=== PATIENT | male | born 1945 | race Caucasian/White ===

== ENCOUNTER 2017-05-02 21:39 | Emergency (ER) | payer MEDICARE, BC ==
[~2017-05-02] VITALS: Ht 170.2 cm; Wt 72.5 kg
[~2017-05-02 21:39] MED LIST: CYCL-36 PO; IBUP-232 PO; Z.0.UNKNOWN
[2017-05-02 22:19] VITALS: BP 171/81; PULSE 90; RESP 16; TEMP 97.4; O2SAT 95
== END 2017-05-02 23:10 | disposition left against medical advice (07) ==
LOC: NED 21:39
DX: K92.9 Disease of digestive system, unspecified (principal)
CPT/HCPCS: 99281

== ENCOUNTER 2017-05-07 11:37 | Emergency (ER) | payer MEDICARE, BC ==
[~2017-05-07] VITALS: Ht 170.2 cm; Wt 72.7 kg
[2017-05-07 11:39] VITALS: BP 162/89; PULSE 103; RESP 20; TEMP 97.7; O2SAT 91
--- NOTE | 2017-05-07 11:45 | PD ---
Physical Exam Time Seen by Provider: 11:41 Narrative 72 y/o male here for evaluation after a Fall 5-6 days ago, his wheelchair tipped over while walking his dog. here with L shoulder pain. Vital signs reviewed. Seen at triage desk. Awaiting bed placement. Data Data Last Documented VS Vital Signs Date Time Temp Pulse Resp B/P Pulse Ox O2 Delivery O2 Flow Rate FiO2 05/07/17 11:39 97.7 103 20 162/89 91 Room Air [facility] Medical Record Reviewed: Yes Supervised Visit with SAMEERA: Raul Kan May 07, 2017 11:45
--- NOTE | 2017-05-07 13:07 | RADRPT ---
EXAM DATE/TIME: 05/07/2017 12:46 [facility] COMPARISON: No previous studies available for comparison. INDICATIONS : Fall. Left shoulder pain. MEDICAL HISTORY : None. SURGICAL HISTORY : None. ENCOUNTER: Initial ACUITY: 1 day PAIN SCORE: 8/10 LOCATION: Left shoulder FINDINGS: The examination demonstrates a comminuted, 100% displaced and foreshortened fracture of the mid left clavicle. The examination also demonstrates fractures of the second, third and fourth left ribs. There are degenerative changes in the glenohumeral joint. CONCLUSION: 1. Comminuted fracture of the mid clavicle. 2. Fracture of the second, third and fourth left ribs.. Jose Alegria MD on May 07, 2017 at 13:04 Board Certified Radiologist. This report was verified electronically.
--- NOTE | 2017-05-07 13:31 | RADRPT ---
EXAM DATE/TIME: 05/07/2017 13:06 [facility] COMPARISON: SHOULDER LEFT COMPLETE (>2VWS), May 07, 2017, 12:46. INDICATIONS : Left clavicle fracture. MEDICAL HISTORY : None. SURGICAL HISTORY : None. ENCOUNTER: Initial ACUITY: 1 day PAIN SCORE: 8/10 LOCATION: Left shoulder, clavicle FINDINGS: The examination demonstrates a comminuted fracture involving the mid aspect of the left clavicle. The re is also fracture of the fourth and fifth left ribs which are only partially visualized. CONCLUSION: 1. Comminuted, mildly displaced left clavicular fracture. 2. Mildly displaced fractures of the fourth and fifth left ribs. Jose Alegria MD on May 07, 2017 at 13:28 Board Certified Radiologist. This report was verified electronically.
--- NOTE | 2017-05-07 13:34 | RADRPT ---
EXAM DATE/TIME: 05/07/2017 13:06 [facility] COMPARISON: No previous studies available for comparison. INDICATIONS : Fall. Left shoulder pain. MEDICAL HISTORY : None. SURGICAL HISTORY : None. ENCOUNTER: Initial ACUITY: 1 day PAIN SCORE: 8/10 LOCATION: Left chest FINDINGS: Multiple displaced fractures are seen on the left and is a complete overriding fracture of left clavi chung. No definite pneumothorax is seen for technique. Tiny left pleural effusion is present with sligh t left lung base consolidation. Scapular fracture is difficult to exclude. CONCLUSION: 1. Multiple displaced rib fractures on the left, clavicular fracture and scapular fracture is difficu lt to exclude. 2. Left lung base consolidation and small left pleural effusion. Ryne Woodard MD on May 07, 2017 at 13:31 Board Certified Radiologist. This report was verified electronically.
[2017-05-07] MEDS ORDERED: NORC5TAB PO (14:13)
--- NOTE | 2017-05-07 14:13 | PD ---
HPI Chief Complaint: Injury Time Seen by Provider: 13:45 Travel History International Travel<30 days: No Contact w/Intl Traveler<30days: No Traveled to known affect area: No History of Present Illness HPI 72-year-old male complains of left shoulder pain, left upper back pain, left- sided chest wall pain. Patient states that he fell several days ago. Patient denies any head injury. Patient denies any headache or neck pain. Patient denies any shortness of breath. Patient denies abdominal pain. Patient denies any focal weakness or numbness of the extremity. Patient was seen by personal physician today and referred to ED for evaluation. PFSH Past Medical History Arthritis: No Asthma: No Autoimmune Disease: No Blood Disorders: No Heart Rhythm Problems: No Cardiovascular Problems: Yes (hx of heart disease) High Cholesterol: Yes Chest Pain: No Congestive Heart Failure: Yes COPD: No Cerebrovascular Accident: No Diminished Hearing: No Endocrine: Yes (hx of pancreatitis) GERD: Yes Glaucoma: No Genitourinary: Yes (REPORTS HX OF CATHETER EROSION W/HOSPITALIZATION 1963) Headaches: Yes Hepatitis: No Hiatal Hernia: No Hypertension: Yes Immune Disorder: No Kidney Stones: No Musculoskeletal: No Neurologic: Yes Respiratory: No Myocardial Infarction: No Renal Failure: No Seizures: No Sickle Cell Disease: No Sleep Apnea: No Ulcer: No Past Surgical History Abdominal Surgery: Yes Ear Surgery: No Endocrine Surgery: No Eye Surgery: No Gynecologic Surgery: No Oral Surgery: Yes (TEETH EXTRACTION) Thoracic Surgery: No Other Surgery: Yes Social History Alcohol Use: No (denies) Tobacco Use: No Substance Use: Yes (states he smokes pot when he can afford it) Allergies-Medications (Allergen,Severity, Reaction): Coded Allergies: No Known Allergies (Verified , NKA, 05/07/17) Reported Meds & Prescriptions Reported Meds & Active Scripts Active Terry (Hydrocodone-Acetaminophen) 5-325 mg Tab 1 Tab PO Q6H PRN Motrin (Ibuprofen) 600 Mg Tab 600 Mg PO TID Flexeril (Cyclobenzaprine HCl) 10 Mg Tab 10 Mg PO TID Reported Unknown Meds (Miscellaneous Medication) Misc DAILY B/P PILL Review of Systems General / Constitutional: No: Fever Eyes: No: Visual changes HENT: No: Headaches Cardiovascular: No: Chest Pain or Discomfort Respiratory: No: Shortness of Breath Gastrointestinal: No: Abdominal Pain Genitourinary: No: Dysuria Musculoskeletal: Positive: Pain Skin: No Rash Neurologic: No: Weakness Psychiatric: No: Depression Endocrine: No: Polydipsia Hematologic/Lymphatic: No: Easy Bruising Physical Exam Narrative GENERAL: Well-nourished, well-developed patient. SKIN: Focused skin assessment warm/dry. HEAD: Normocephalic. EYES: No scleral icterus. No injection or drainage. NECK: Supple, trachea midline. No JVD or lymphadenopathy. CARDIOVASCULAR: Regular rate and rhythm without murmurs, gallops, or rubs. RESPIRATORY: Breath sounds equal bilaterally. No accessory muscle use. GASTROINTESTINAL: Abdomen soft, non-tender, nondistended. MUSCULOSKELETAL: Patient has ecchymosis and tenderness on palpation left clavicle area left shoulder area left upper back and left chest wall area. No crepitus no deformity noted. Breasts are equal bilaterally. BACK: Nontender without obvious deformity. No CVA tenderness. Neurologic exam normal. Data Data Last Documented VS Vital Signs Date Time Temp Pulse Resp B/P Pulse Ox O2 Delivery O2 Flow Rate FiO2 05/07/17 13:40 18 97 Room Air 05/07/17 11:39 97.7 103 162/89 Orders Chest, Single Ap (05/07/17 ) Shoulder, Complete (>2vws) (05/07/17 ) Clavicle (05/07/17 ) Splint Or Brace Apply/Monitor (05/07/17 14:11) Sling Cradle Arm (05/07/17 ) Sling Cradle Arm (05/07/17 ) MDM Medical Decision Making Medical Screen Exam Complete: Yes Emergency Medical Condition: Yes Interpretation(s) Last Impressions Shoulder X-Ray 05/07/17 0000 Signed Impressions: Service Date/Time: April 12:46 - CONCLUSION: 1. Comminuted fracture of the mid clavicle. 2. Fracture of the second, third and fourth left ribs.. Jose Alegria MD Clavicle X-Ray 05/07/17 0000 Signed Impressions: Service Date/Time: April 13:06 - CONCLUSION: 1. Comminuted , mildly displaced left clavicular fracture. 2. Mildly displaced fractures of the fourth and fifth left ribs. Jose Alegria MD Chest X-Ray 05/07/17 0000 Signed Impressions: Service Date/Time: , May 07, 2017 13:06 - CONCLUSION: 1. Multiple displaced rib fractures on the left, clavicular fracture and scapular fracture is difficult to exclude. 2. Left lung base consolidation and small left pleural effusion. Ryne Woodard MD Differential Diagnosis Differential diagnosis including contusion, fracture, dislocation, rib fracture , hemopneumothorax. Narrative Course Patient was advised of left clavicle fracture, left ribs fracture and left scapula fracture. Patient refused CT of the chest. Patient wants to go home and follow-up with his physician. Diagnosis Primary Impression: Fracture of clavicle, left, closed Qualified Code: S42.022A - Closed displaced fracture of shaft of left clavicle , initial encounter Additional Impressions: Multiple rib fractures Qualified Code: S22.42XA - Closed fracture of multiple ribs of left side, initial encounter Fracture scapula-closed Qualified Code: S42.102A - Closed fracture of left scapula, unspecified part of scapula, initial encounter Patient Instructions: General Instructions Additional Instructions: Take medications as directed. Sling as directed. Follow-up with orthopedist and personal physician. Med/Other Pt SpecificInfo: Prescription(s) given Scripts Hydrocodone-Acetaminophen (Terry)5-325 mg Tab1 Tab PO Q6H PRN (PAIN) #30 TAB Prov:Juwan Bueno MD 05/07/17 Disposition: 01 DISCHARGE HOME Condition: Stable Juwan Bueno MD May 07, 2017 14:13
== END 2017-05-07 15:04 | disposition home or self-care (01) ==
LOC: NEPD 11:37
DX: S42.022A Displaced fracture of shaft of left clavicle, initial encounter for closed fracture (principal); S22.42XA Multiple fractures of ribs, left side, initial encounter for closed fracture; S42.102A Fracture of unspecified part of scapula, left shoulder, initial encounter for closed fracture; K21.9 Gastro-esophageal reflux disease without esophagitis; K85.90 Acute pancreatitis without necrosis or infection, unspecified; E78.00 Pure hypercholesterolemia, unspecified; I50.9 Heart failure, unspecified; W19.XXXA Unspecified fall, initial encounter; Z79.899 Other long term (current) drug therapy
CPT/HCPCS: 71010; 73000; 73030; 99284

== ENCOUNTER 2018-03-15 12:34 | Emergency (ER) | payer MEDICARE, BC ==
[~2018-03-15 12:34] MED LIST changes: +NORC5TAB PO
[2018-03-15 12:49] VITALS: RESP 18; O2SAT 96
[2018-03-15 12:50] VITALS: BP 135/67; PULSE 84; RESP 16; TEMP 98.1; O2SAT 96
--- NOTE | 2018-03-15 13:06 | PD ---
HPI Chief Complaint: General Weakness Time Seen by Provider: 12:40 Travel History International Travel<30 days: No Contact w/Intl Traveler<30days: No Traveled to known affect area: No History of Present Illness HPI 73-year-old male who presents to the ED for evaluation of failure to thrive. Per history obtained from the patient and from the ambulance apparently patient contacted ambulance to his life alert device. Patient apparently contacted because he felt he was given a diet because he could not get up to eat. When ambulance showed up patient only complained of wanting to have food. The ambulance provider gave patient his apple sauce and patient started to mention to them so he does not feel safe being by himself. Apparently he has 2 people to come check on him but apparently he lost all the doors. He appears to have some confusion appears to be somewhat demented. Questionable whether this is new or old as patient himself is not a good historian although he does appear to answer some questions appropriately. When asked if he has any medical issues he states no one when asked if he takes any medications he states that he did but he no longer takes them for about 2-3 weeks secondary to "do not make him feel well ". He was found by ambulance to have an elevated blood sugar. She states that for the most part he feels like he cannot take care of himself and he does not feel safe at home and he did himself requested possible placement. Patient was brought here by ambulance for evaluation of this is the did felt the patient was not safe to stay at home. Per patient he has no family in town. He has not seen his doctor for this. He denies any complaints or falls. PFSH Past Medical History Arthritis: No Asthma: No Autoimmune Disease: No Blood Disorders: No Heart Rhythm Problems: No Cardiovascular Problems: Yes (hx of heart disease) High Cholesterol: Yes Chest Pain: No Congestive Heart Failure: Yes COPD: No Cerebrovascular Accident: No Diminished Hearing: No Endocrine: Yes (hx of pancreatitis) GERD: Yes Glaucoma: No Genitourinary: Yes (REPORTS HX OF CATHETER EROSION W/HOSPITALIZATION 1963) Headaches: Yes Hepatitis: No Hiatal Hernia: No Hypertension: Yes Immune Disorder: No Kidney Stones: No Musculoskeletal: No Neurologic: Yes Respiratory: No Myocardial Infarction: No Renal Failure: No Seizures: No Sickle Cell Disease: No Sleep Apnea: No Ulcer: No Past Surgical History Abdominal Surgery: Yes Ear Surgery: No Endocrine Surgery: No Eye Surgery: No Gynecologic Surgery: No Oral Surgery: Yes (TEETH EXTRACTION) Thoracic Surgery: No Other Surgery: Yes Social History Alcohol Use: No (denies) Tobacco Use: No Substance Use: Yes (states he smokes pot when he can afford it) Allergies-Medications (Allergen,Severity, Reaction): Coded Allergies: No Known Allergies (Verified Adverse Reaction, Unknown, NKA, 03/15/18) Reported Meds & Prescriptions Reported Meds & Active Scripts Active No Active Prescriptions or Reported Medications Review of Systems ROS Limitations: Poor Historian Except as stated in HPI: all other systems reviewed are Neg Physical Exam Exam Limitations: Poor Historian Narrative GENERAL: SKIN: Warm and dry. HEAD: Atraumatic. Normocephalic. EYES: Pupils equal and round. No scleral icterus. No injection or drainage. ENT: No nasal bleeding or discharge. Mucous membranes pink and moist. Tongue is midline. No uvula deviation. NECK: Trachea midline. No JVD. CARDIOVASCULAR: Regular rate and rhythm. No murmurs, S3, S4. RESPIRATORY: No accessory muscle use. Clear to auscultation. Breath sounds equal bilaterally. GASTROINTESTINAL: Abdomen soft, non-tender, nondistended. Hepatic and splenic margins not palpable. MUSCULOSKELETAL: Extremities without clubbing, cyanosis, or edema. No obvious deformities. Full range of motion of the upper and lower extremities bilaterally. 2+ pulses bilaterally. NEUROLOGICAL: Awake and alert and oriented to person and place. No obvious cranial nerve deficits. Motor grossly within normal limits. Five out of 5 muscle strength in the arms and legs. Normal speech. PSYCHIATRIC: Appropriate mood and affect; insight and judgment mild Data Data Last Documented VS Vital Signs Date Time Temp Pulse Resp B/P (MAP) Pulse Ox O2 Delivery O2 Flow Rate FiO2 03/15/18 12:50 98.1 84 16 135/67 (89) 96 Room Air Orders Orders Complete Blood Count With Diff (03/15/18 12:46) Comprehensive Metabolic Panel (03/15/18 12:46) Ckmb (Isoenzyme) Profile (03/15/18 12:46) Prothrombin Time / Inr (Pt) (03/15/18 12:46) Act Partial Throm Time (Ptt) (03/15/18 12:46) Urinalysis - C+S If Indicated (03/15/18 12:46) Magnesium (Mg) (03/15/18 12:46) Thyroid Stimulating Hormone (03/15/18 12:46) Iv Access Insert/Monitor (03/15/18 12:46) Ecg Monitoring (03/15/18 12:46) Oximetry (03/15/18 12:46) Ed Discharge Order (03/15/18 14:20) Labs Laboratory Tests Test 03/15/18 12:51 White Blood Count 13.0 TH/MM3 Red Blood Count 5.27 MIL/MM3 Hemoglobin 15.4 GM/DL Hematocrit 47.3 % Mean Corpuscular Volume 89.7 FL Mean Corpuscular Hemoglobin 29.3 PG Mean Corpuscular Hemoglobin Concent 32.7 % Red Cell Distribution Width 15.2 % Platelet Count 272 TH/MM3 Mean Platelet Volume 8.6 FL Neutrophils (%) (Auto) 68.2 % Lymphocytes (%) (Auto) 18.1 % Monocytes (%) (Auto) 11.3 % Eosinophils (%) (Auto) 1.7 % Basophils (%) (Auto) 0.7 % Neutrophils # (Auto) 8.9 TH/MM3 Lymphocytes # (Auto) 2.4 TH/MM3 Monocytes # (Auto) 1.5 TH/MM3 Eosinophils # (Auto) 0.2 TH/MM3 Basophils # (Auto) 0.1 TH/MM3 CBC Comment DIFF FINAL Differential Comment Prothrombin Time 11.5 SEC Prothromb Time International Ratio 1.1 RATIO Activated Partial Thromboplast Time 25.9 SEC Blood Urea Nitrogen 21 MG/DL Creatinine 1.04 MG/DL Random Glucose 221 MG/DL Total Protein 7.1 GM/DL Albumin 3.2 GM/DL Calcium Level 8.5 MG/DL Magnesium Level 2.2 MG/DL Alkaline Phosphatase 86 U/L Aspartate Amino Transf (AST/SGOT) 25 U/L Alanine Aminotransferase (ALT/SGPT) 11 U/L Total Bilirubin 0.7 MG/DL Sodium Level 141 MEQ/L Potassium Level 4.0 MEQ/L Chloride Level 103 MEQ/L Carbon Dioxide Level 28.5 MEQ/L Anion Gap 10 MEQ/L Estimat Glomerular Filtration Rate 70 ML/MIN Total Creatine Kinase 89 U/L Thyroid Stimulating Hormone 3rd Gen 0.431 uIU/ML MDM Medical Decision Making Medical Screen Exam Complete: Yes Emergency Medical Condition: Yes Medical Record Reviewed: Yes Interpretation(s) CBC & BMP Diagram 03/15/18 12:51 Total Protein 7.1, Albumin 3.2 L, Calcium Level 8.5, Magnesium Level 2.2, Alkaline Phosphatase 86, Aspartate Amino Transf (AST/SGOT) 25, Alanine Aminotransferase (ALT/SGPT) 11 L, Total Bilirubin 0.7 Differential Diagnosis Dementia versus altered mental status versus failure to thrive versus inability to take care of self versus UTI versus electrolyte imbalance versus diabetes Narrative Course 73-year-old male that presents to the ED for evaluation of failure to thrive. Patient was properly examined and was found to have signs and symptoms consistent appears to be dementia admitted with sickle cell. Labs were ordered. Case management was made aware of possible need for placement for the patient. Labs showed no sign of acute disease at this time. Case discussed with case management who was able to contact family and patient and they will be given information for [facility] outpatient. Patient agrees with this as well as family. Case management working to set up transportation pending waiting to see if home nurse at home when patient is discharged. Case discussed with my attending Dr pickens who agrees with plan. Diagnosis Primary Impression: Dementia Qualified Codes: G30.1 - Alzheimer's disease with late onset; F02.80 - Dementia in other diseases classified elsewhere without behavioral disturbance Patient Instructions: General Instructions Additional Instructions: F/u with PCP for placement. See ED if worsening symptoms. Med/Other Pt SpecificInfo: No Change to Meds Scripts No Active Prescriptions or Reported Meds Disposition: 01 DISCHARGE HOME Condition: Stable Lawrence Armijo March 15, 2018 13:06
[2018-03-15 13:11] LABS: AUTOMATED NEUTROPHIL # 8.9 TH/MM3 (1.8-7.7); BASOPHIL # 0.1 TH/MM3 (0-0.2); BASOPHIL % 0.7 % (0.0-2.0); EOSINOPHIL # 0.2 TH/MM3 (0-0.4); EOSINOPHIL % 1.7 % (0.0-4.0); HEMATOCRIT 47.3 % (39.0-51.0); HEMOGLOBIN 15.4 GM/DL (13.0-17.0); LYMPH % 18.1 % (9.0-44.0); LYMPHOCYTE # 2.4 TH/MM3 (1.0-4.8); MEAN CELL VOLUME 89.7 FL (80.0-100.0); MEAN CORPUSCULAR HEMOGLOBIN 29.3 PG (27.0-34.0); MEAN CORPUSCULAR HGB CONC 32.7 % (32.0-36.0); MEAN PLATELET VOLUME 8.6 FL (7.0-11.0); MONO % 11.3 % (0.0-8.0); MONOCYTE # 1.5 TH/MM3 (0-0.9); NEUT % 68.2 % (16.0-70.0); PLATELET COUNT 272 TH/MM3 (150-450); RED BLOOD COUNT 5.27 MIL/MM3 (4.50-5.90); RED CELL DISTRIBUTION WIDTH 15.2 % (11.6-17.2)
[2018-03-15 13:19] LABS: INTERNATIONAL NORMALIZED RATIO 1.1 RATIO; PROTHROMBIN TIME - PATIENT 11.5 SEC (9.8-11.6)
[2018-03-15 13:38] LABS: ALBUMIN 3.2 GM/DL (3.4-5.0); ALKALINE PHOSPHATASE 86 U/L (45-117); ALT (GPT) 11 U/L (12-78); AST (GOT) 25 U/L (15-37); BICARBONATE 28.5 MEQ/L (21.0-32.0); BLOOD UREA NITROGEN 21 MG/DL (7-18); CALCIUM 8.5 MG/DL (8.5-10.1); CHLORIDE 103 MEQ/L (98-107); CREATININE 1.04 MG/DL (0.60-1.30); GLOMERULAR FILTRATION RATE 70 ML/MIN (>89); GLUCOSE,RANDOM 221 MG/DL (74-106); MAGNESIUM 2.2 MG/DL (1.5-2.5); SODIUM (NA) 141 MEQ/L (136-145); TOTAL BILIRUBIN ADULT 0.7 MG/DL (0.2-1.0); TOTAL PROTEIN 7.1 GM/DL (6.4-8.2)
[2018-03-15 15:48] LABS: BLOOD, URINE NEG (NEG); GLUCOSE,URINE NEG (NEG); KETONE, URINE TRACE mg/dL (NEG); NITRITE,URINE NEG (NEG); PH, URINE 5.5 (5.0-8.5); URINE COLOR YELLOW (YELLW/STRAW); URINE LEUKOCYTE ESTERASE NEG (NEG)
[2018-03-15 15:49] LABS: BILIRUBIN, URINE NEG (NEG)
[2018-03-15 15:52] LABS: AMORPHOUS SEDIMENT, URINE RARE; HYALINE CAST, URINE 16 /lpf (RARE); MUCUS URINE MANY /lpf (OCC); SQUAMOUS EPITHELIAL CELL URINE 1 /hpf (0-5)
== END 2018-03-15 16:28 | disposition home or self-care (01) ==
LOC: NEPE 12:34
DX: G30.1 Alzheimer's disease with late onset (principal); F02.80 Dementia in other diseases classified elsewhere, unspecified severity, without behavioral disturbance, psychotic disturbance, mood disturbance, and anxiety; I11.0 Hypertensive heart disease with heart failure; I50.9 Heart failure, unspecified
CPT/HCPCS: 80053; 81001; 82550; 83735; 84443; 85025; 85610; 85730; 99283

== ENCOUNTER 2018-12-07 06:33 | Inpatient (IN) ==
--- NOTE | 2018-12-07 06:48 | ED ---
HPI General Chief Complaint: Stroke Alert Stated Complaint: Medical Time Seen by Provider: 12/07/18 06:37 Source: EMS Mode of arrival: EMS Limitations: language barrier and altered mental status History of Present Illness HPI Narrative: The patient is a 73-year-old male. He is nonverbal in the ED. The history is obtained by EMS. The patient was put to bed at about 9 PM however was evidently confirmed to be normal by home health care until 1:30 AM when home health care left the household. This is confirmed by the presence of note left on the kitchen table. The patient has a medical alert device which was activated early this morning at approximately 6:15 AM. The patient was found by EMS at home with a gaze deviation to the left and aphasia. In the ED the patient is nonverbal. Stroke alert activated upon arrival. Reviewed the medical record shows medication reconciliation list which includes losartan, carbidopa, simvastatin, ropinirole and Lasix. EMS notes the patient uses medical marijuana as well. Prior medical records show that the patient was awake alert without obvious cranial nerve deficit or motor deficit at the end of August of this year. There has been no interval ED documentation/visit. Related Data Home Medications Medication Instructions Recorded Confirmed carbidopa-levodopa [Sinemet] 1 tab PO QID 09/21/18 09/21/18 furosemide [Lasix] 20 mg PO DAILY 09/21/18 09/21/18 losartan-hydrochlorothiazide 1 tab PO DAILY 09/21/18 09/21/18 melatonin 10 mg PO HS PRN 09/21/18 09/21/18 ropinirole 1 mg PO TID 09/21/18 09/21/18 simvastatin [Zocor] 20 mg PO QPM 09/21/18 09/21/18 Allergies Allergy/AdvReac Type Severity Reaction Status Date / Time No Known Allergies Allergy Verified 09/21/18 15:52 Review of Systems ROS Unobtainable ROS Unobtainable: unobtainable due to mental condition and unobtainable due to mental status PMFSH Social History Social History Substance History: No History of Abuse Second Hand Smoke Exposure: Yes Smoking Status: Cognitive impairment Tobacco Type: Cigarettes How Often Do You Have a Drink Containing Alcohol: Unable to Obtain Recent Travel in [facility] within the Last 8 Weeks: No Recent Out of Country Travel within the Last 8 Weeks: No Exam Narrative Exam Narrative: GENERAL: 73-year-old male moderate distress, nonverbal, well- nourished well-developed SKIN: Focused skin assessment warm/dry. Ecchymosis about the right ribs linear about 10 cm long by 2 cm wide. HEAD: Atraumatic. Normocephalic. EYES: Pupils equal and round. No scleral icterus. No injection or drainage. ENT: No nasal bleeding or discharge. Mucous membranes pink and moist. NECK: Trachea midline. No JVD. CARDIOVASCULAR: Rate approximately 110. Regular. RESPIRATORY: No accessory muscle use. Clear to auscultation. Breath sounds equal bilaterally. GASTROINTESTINAL: Surgical incision midline abdomen. Grimacing with palpation of the abdomen. MUSCULOSKELETAL: No obvious deformities. No clubbing. No cyanosis. No edema. NEUROLOGICAL: Awake and alert. gaze deviation to the left. The patient does not speak. 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 Ankle flexion 5/5 and equal bilaterally. Further evaluation limited by patient's inability to participate with the physical exam. PSYCHIATRIC: Appropriate mood and affect; insight and judgment normal. Procedures Hemaprompt Stool Procedural Steps Taken: specimen placed in appropriate test area, developer placed on specimen and control areas and controls appropriately positive and negative Hemaprompt Stool Result: positive Intubation Time Out Performed: Yes Sedative: etomidate Mg Given: 20 Paralytic: succinylcholine Mg Given: 100 Laryngoscope: Mike ET Tube Size: 8 ET Tube Uncuffed: Yes Tube Secured Depth (cm): 24 Tube Secured Location: lips Tube Placement Confirmation: visualized tube passing through cords, equal breath sounds bilaterally, no breath sounds over epigastrium and confirmation by capnometry Patient Tolerated Procedure: well and no complications Course Initial Documented Vital Signs Pulse Rate 111 H 12/07/18 06:35 Respiratory Rate 18 12/07/18 06:35 Blood Pressure 192/102 H 12/07/18 06:35 Pulse Oximetry 98 12/07/18 06:35 Last Documented Vital Signs Temperature 98.0 F 12/07/18 06:36 Pulse Rate 120 H 12/07/18 07:29 Respiratory Rate 27 H 12/07/18 07:29 Blood Pressure 128/74 12/07/18 07:44 Pulse Oximetry 100 12/07/18 07:45 Critical Care Time Critical Care Time: Yes Total Critical Care Time: 35 Attestation: Aggregate critical care time was 35 minutes. Time to perform other separately billable procedures was not included in the critical care time. My time did not include minutes spent treating any other patients simultaneously or on activities that did not directly contribute to the patient's treatment. The services I provided to this patient were to treat and/or prevent clinically significant deterioration that could result in: Permanent disability, cardiopulmonary arrest I provided critical care services requiring my management, as noted below: Chart data review, documentation time, medication orders and management, vital sign assessments/reviewing monitor data, ordering and reviewing lab tests, ordering and interpreting/reviewing x-rays and diagnostic studies, care of the patient and discussion of the patient with the admitting physicians. Sign Out Sign Out Data: Patient Sign Out occurred on 12/07/18 at 07:45. Patient's care was discussed, and care was transferred from Jose William MD to Cherelle Schofield MD. Sign Out Comment: Plan for admission to [facility] per our discussion. Dr Turner to d/ w IR. Last updated by Jose William MD at 12/07/18 07:30 Post-Handoff Eval: Patient is a 73 year old male who comes in after being found on the ground next to his bed. Patient originally seen by Dr. William and stroke alert called. I saw the patient and he was not alert or following any commands. He had sonorous respirations. Decision made to intubate for airway protection. Patient also noted to have coffee ground emesis. Stool is positive for occult blood. CT shows a dense left MCA stroke. CXR confirms tube, but also is suspicious for LLL infiltrate. WBC count is 21.6. Given Vancomycin and Zosyn. Started on Protonix. Given Propofol for sedation. IR took the patient for clot retrieval. Admitted to [facility], NIH Stroke Scale NIH Stroke Scale Level of Consciousness: 0-Alert Orientation Questions: 2-Neither task correct Responds to Commands: 2-Neither task correct Gaze Eye Movement: 2-Complete gaze palsy Facial Movement: 0-Normal Motor Functions Arm LEFT: 0-No drift Motor Functions Arm RIGHT: 0-No drift Motor Functions Leg LEFT: 0-No drift Motor Functions Leg RIGHT: 0-No drift Sensory Loss: 0-No sensory loss Best Language: 3-Mute or global aphasia Articulation: 2-Severe dysarthria Total: 11 Medical Decision Making MDM Narrative Medical decision making narrative: CT the head is normal however his CTA shows left MCA thrombosis with extension into the internal carotid artery to the level of the bifurcation. This was relayed to me by Dr Woodard of radiology. I relayed the report to Dr Turner at approximately 715AM. The NIH stroke score is 11 by my assessment however a fair portion of it was unobtainable due to patient's inability to participate with the exam secondary to altered mental status. The RN obtained an NIH stroke scale of 18. At about 710 the patient return to the ED having deteriorated somewhat with sonorous respirations and even less responsive to verbal and tactile stimulus. The oncoming provider Dr. Schofield elected to intubate the patient. Propofol started. Medical Screen Exam Complete: Yes Emergency Medical Condition: Yes Differential Diagnosis Differential Diagnosis: stroke vs ICH vs sepsis vs GI bleed Medical Records Medical records reviewed: Yes I reviewed the patient's medical records. Lab Data Lab results reviewed: Yes I reviewed the patient's lab results. Result diagrams: 12/07/18 06:40 Lab Results 12/07/18 12/07/18 12/07/18 Range/Units 06:40 06:40 06:40 WBC 21.6 H (4.0-11.0) th/mm3 RBC 5.31 (4.50-5.90) mil/mm3 Hgb 16.0 (13.0-17.0) gm/dL POC Hgb (Calc) 17.0 (13.0-17.0) g/dL Hct 48.1 (39.0-51.0) % POC Hct 50.0 (39-51.0) % MCV 90.6 (80.0-100.0) fL MCH 30.1 (27.0-34.0) pg MCHC 33.2 (32.0-36.0) % RDW 14.7 (11.6-17.2) % Plt Count 247 (150-450) th/mm3 MPV 9.1 (7.0-11.0) fL Neut % (Auto) 87.3 H (16.0-70.0) % Lymph % (Auto) 4.9 L (9.0-44.0) % [place] % (Auto) 7.5 (0.0-8.0) % Eos % (Auto) 0.0 (0.0-4.0) % Baso % (Auto) 0.3 (0.0-2.0) % Neut # (Auto) 18.8 H (1.8-7.7) th/mm3 Lymph # (Auto) 1.1 (1.0-4.8) th/mm3 [place] # (Auto) 1.6 H (0.0-0.9) th/mm3 Eos # (Auto) 0.0 (0.0-0.4) th/mm3 Baso # (Auto) 0.1 (0.0-0.2) th/mm3 WBC Differential . Differential Comment Auto diff final PT 10.5 (9.8-11.6) sec INR 1.0 Ratio APTT 27.2 (23.4-31.7) sec Fibrinogen 399 H (227-377) mg/dL POC Sodium 139 (137-144) mmol/L POC Potassium 3.7 (3.6-5.0) mmol/L POC Chloride 98 L (102-111) mmol/L POC BUN 23 H (5-21) mg/dL POC Creatinine 0.7 (0.6-1.3) mg/dL POC Glucose 224 H (68-110) mg/dL Total Creatine Kinase 244 (39-308) U/L Troponin I 0.10 H (0.02-0.05) ng/mL Blood Type Blood Type Recheck Antibody Screen 12/07/18 Range/Units 06:40 WBC (4.0-11.0) th/mm3 RBC (4.50-5.90) mil/mm3 Hgb (13.0-17.0) gm/dL POC Hgb (Calc) (13.0-17.0) g/dL Hct (39.0-51.0) % POC Hct (39-51.0) % MCV (80.0-100.0) fL MCH (27.0-34.0) pg MCHC (32.0-36.0) % RDW (11.6-17.2) % Plt Count (150-450) th/mm3 MPV (7.0-11.0) fL Neut % (Auto) (16.0-70.0) % Lymph % (Auto) (9.0-44.0) % [place] % (Auto) (0.0-8.0) % Eos % (Auto) (0.0-4.0) % Baso % (Auto) (0.0-2.0) % Neut # (Auto) (1.8-7.7) th/mm3 Lymph # (Auto) (1.0-4.8) th/mm3 [place] # (Auto) (0.0-0.9) th/mm3 Eos # (Auto) (0.0-0.4) th/mm3 Baso # (Auto) (0.0-0.2) th/mm3 WBC Differential Differential Comment PT (9.8-11.6) sec INR Ratio APTT (23.4-31.7) sec Fibrinogen (227-377) mg/dL POC Sodium (137-144) mmol/L POC Potassium (3.6-5.0) mmol/L POC Chloride (102-111) mmol/L POC BUN (5-21) mg/dL POC Creatinine (0.6-1.3) mg/dL POC Glucose (68-110) mg/dL Total Creatine Kinase (39-308) U/L Troponin I (0.02-0.05) ng/mL Blood Type O Positive Blood Type Recheck Required Antibody Screen Negative Imaging Data Radiologist's impression: Head CT 12/07/18 06:37 CONCLUSION: No acute intracranial findings. Report was called by [Tonkin to Dr. William 0654 hours]. Head CTA 12/07/18 06:37 CONCLUSION: 1. The left ICA is completely clotted from the takeoff in the patient's neck all the way to supraclinoid ICA at the junction of M1 takeoff with diminished flow within left MCA branches. Report was called by [myself to Dr. Hope as well as Dr Burgess at the time of this dictation at 7:15 a.m.]. Neck CTA 12/07/18 06:37 CONCLUSION: 1. Complete occlusion of the left ICA. 2. Atherosclerotic soft plaque with ulceration of right ICA at the takeoff with slight stenosis. Report was called by [myself to Dr. Hope and Dr. Burgess at 17:15 a[address]m]. CT CAD 12/07/18 06:40 CONCLUSION: Physiological brain perfusion parameters with RAPID analysis as above. Findings were discussed with Dr. William at 17:14 a.m. including the results of CT angiography. The decision for consideration of therapy is multi factorial and multi disciplinary relying on subjective and objective clinical data. This data is not construed or intended to be the sole determinant of treatment eligibility. Chest X-Ray 12/07/18 07:06 CONCLUSION: Tubes placed with slight left lung base atelectasis and/or infiltrate. ECG Data EKG Prior to Arrival: No Attestation: I personally reviewed and interpreted this ECG as follows: Interpretation: ECG shows sinus tachycardia Discharge Plan Discharge Disposition Patient Disposition: ED Admit(ED Internal Use Only) Discharge Condition Condition: Critical Discharge Details Diagnosis: Stroke, Leukocytosis, Pneumonia, GI bleed, Respiratory failure Physicians Team ED Provider: Cherelle Schofield Primary Care Provider: UNKNOWN, Other Providers: Daniele Turner Rxs /Orders / Referrals /Forms Prescriptions: No Action simvastatin [Zocor] 40 mg Tablet 20 mg PO QPM RF: 0 ropinirole 1 mg Tablet 1 mg PO TID RF: 0 carbidopa-levodopa [Sinemet] 25-250 mg Tablet 1 tab PO QID RF: 0 furosemide [Lasix] 20 mg Tablet 20 mg PO DAILY RF: 0 losartan-hydrochlorothiazide 50-12.5 mg Tablet 1 tab PO DAILY RF: 0 melatonin 10 mg Tablet 10 mg PO HS PRN (Reason: Insomnia) RF: 0 Discharge Interventions Interventions: Vital Signs Last Done: 12/07/18 07:44 Status ED Status: With Doctor
[2018-12-07 06:54] LABS: Baso # (Auto) 0.1 th/mm3 (0.0-0.2); Baso % (Auto) 0.3 % (0.0-2.0); Hematocrit 48.1 % (39.0-51.0); Lymph # (Auto) 1.1 th/mm3 (1.0-4.8); Lymph % (Auto) 4.9 % (9.0-44.0); Mean Corpuscular HGB Conc 33.2 % (32.0-36.0); Mean Corpuscular Hemoglobin 30.1 pg (27.0-34.0); Mean Corpuscular Volume 90.6 fL (80.0-100.0); Mean Platelet Volume 9.1 fL (7.0-11.0); Mono # (Auto) 1.6 th/mm3 (0.0-0.9); Mono % (Auto) 7.5 % (0.0-8.0); Neut # (Auto) 18.8 th/mm3 (1.8-7.7); Neut % (Auto) 87.3 % (16.0-70.0); Platelet Count 247 th/mm3 (150-450); Red Blood Count 5.31 mil/mm3 (4.50-5.90); Red Cell Distribution Width 14.7 % (11.6-17.2); White Blood Count 21.6 th/mm3 (4.0-11.0)
--- NOTE | 2018-12-07 06:56 | CT ---
EXAM DATE: 12/07/2018 6:51 AM EST AGE/SEX: 73 years / Male INDICATIONS: Stroke alert; altered mental status. Fall. CLINICAL DATA: This is the patient's initial encounter. Patient reports that signs and symptoms have been present for 1 day and indicates a pain score of Nonresponsive. MEDICAL/SURGICAL HISTORY: Non-responsive. Non-responsive. RADIATION DOSE: 60.59 CTDI (mGy) [place] [facility] [place]. . TECHNIQUE: CT of the head without contrast. Using automated exposure control and adjustment of the mA and/or kV according to patient size, radiation dose was kept as low as reasonably achievable to ob tain optimal diagnostic quality images. DICOM format image data is available electronically for revi ew and comparison. FINDINGS: The ventricles are symmetric and normal. No abnormal extra-axial fluid accumulation, mass or hemorrha ge is identified. There is stable encephalomalacia in the high convexity left anterior frontal centru m semiovale. There is nothing to suggest acute infarction. The extracranial structures are grossly be nign with mild secretion and mucosal thickening in the maxillary sinuses. CONCLUSION: No acute intracranial findings. Report was called by [Sarai to Dr. William 0654 hours]. Electronically signed by: Nadeem Moon MD Board Certified Radiologist 12/07/2018 6:55 AM EST
[2018-12-07 07:09] LABS: Activated Partial Thrombo Time 27.2 sec (23.4-31.7); Prothrombin Time 10.5 sec (9.8-11.6)
[2018-12-07 07:14] LABS: Troponin I 0.1 ng/mL (0.02-0.05)
[2018-12-07] MEDS: Sod Chloride 0.9% Inj 1,000 ML IV.CONT SCH ×2 (07:14→23:56)
[2018-12-07] MEDS: Etomidate Inj 40 MG/20 ML Vial IV.PUSH ONE ×2 (07:14→08:14)
--- NOTE | 2018-12-07 07:15 | CT ---
EXAM DATE: 12/07/2018 7:04 AM EST AGE/SEX: 73 years / Male INDICATIONS: Stroke alert; nonresponsive. CLINICAL DATA: This is the patient's initial encounter. Patient reports that signs and symptoms have been present for 1 day and indicates a pain score of Nonresponsive. MEDICAL/SURGICAL HISTORY: Non-responsive. Non-responsive. RADIATION DOSE: 217.00 CTDI (mGy) [place] [facility] [place]. . TECHNIQUE: CT of the head after intravenous administration of 40 ml Visipaque 320 (iodixanol) nonio osmany water-soluble contrast as a single exam dose. Using automated exposure control and adjustment of the mA and/or kV according to patient size, radiation dose was kept as low as reasonably achievable to obtain optimal diagnostic quality images. DICOM format image data is available electronically for review and comparison. FINDINGS: 1. CBF (<30%) Volume (ml): 17ml 2. Perfusion (Tmax>6.0s) Volume (ml): 111ml 3. Mismatch Volume (ml) (Tmax>6.0 - CBF): 94ml CONCLUSION: Physiological brain perfusion parameters with RAPID analysis as above. Findings were discussed with Quiana William at 17:14 a.m. including the results of CT angiography. The decision for consideration of therapy is multi factorial and multi disciplinary relying on subjec tive and objective clinical data. This data is not construed or intended to be the sole determinant of treatment eligibility. Electronically signed by: Anahi Woodard MD Board Certified Radiologist 12/07/2018 7:14 AM EST
[2018-12-07] MEDS ORDERED: Propofol 1000 mg/100 ml Inj 1,000 MG/100 ML BOTTLE ONE (07:17)
--- NOTE | 2018-12-07 07:22 | CT ---
EXAM DATE: 12/07/2018 7:04 AM EST AGE/SEX: 73 years / Male INDICATIONS: Stroke alert; unresponsive. CLINICAL DATA: This is the patient's initial encounter. Patient reports that signs and symptoms have been present for 1 day and indicates a pain score of Nonresponsive. MEDICAL/SURGICAL HISTORY: Non-responsive. Non-responsive. RADIATION DOSE: 10.04 CTDI (mGy) ; Combined studies [place]PAR[place] [facility] [place] CEREBRAL [place]F [place]AST W 3D, 12/07/2018. . TECHNIQUE: Volumetric scanning was performed using a multi-row detector CT scanner during bolus infu андрей of 100 ml Visipaque 320 (iodixanol) nonionic water-soluble contrast as a cumulative dose for mu ltiple exams. The data was post processed with a variety of visualization algorithms including full volume maximum intensity projection, multi-planar sliding thin slab reformation, curved planar refor mation, and surface rendering techniques. Using automated exposure control and adjustment of the mA and/or kV according to patient size, radiation dose was kept as low as reasonably achievable to obtai n optimal diagnostic quality images. DICOM format image data is available electronically for review and comparison. FINDINGS: There is complete occlusion of the left internal carotid artery starting from the takeoff in the shaniqua ent's neck and this vessel is clotted completely although way up into the carotid siphon on and supra clinoid ICA. Flow is identified within left MCA branches, however appears diminutive . No definite ve ssel cut off is identified within the left MCA, however the clot extends to M1 bifurcation. The rest of the cerebral vasculature appears intact. CONCLUSION: 1. The left ICA is completely clotted from the takeoff in the patient's neck all the way to supracli noid ICA at the junction of M1 takeoff with diminished flow within left MCA branches. Report was called by [myself to Dr. Hope as well as Dr Burgess at the time of this dictation at 7:15 a.m.]. Electronically signed by: Anahi Woodard MD Board Certified Radiologist 12/07/2018 7:20 AM EST
[2018-12-07] MEDS: Propofol 1000 mg/100 ml Inj 1,000 MG/100 ML BOTTLE IV.CONT PRN ×2 (07:23→17:11)
[2018-12-07] MEDS ORDERED: Succinylcholine Inj 100 MG/5 ML Syringe IV.PUSH ONE (07:24)
[2018-12-07] MEDS ORDERED: Etomidate Inj 40 MG/20 ML Vial IV.PUSH ONE (07:24)
--- NOTE | 2018-12-07 07:25 | CT ---
EXAM DATE: 12/07/2018 7:16 AM EST AGE/SEX: 73 years / Male INDICATIONS: Stroke alert; nonresponsive CLINICAL DATA: This is the patient's initial encounter. Patient reports that signs and symptoms have been present for 1 day and indicates a pain score of Nonresponsive. MEDICAL/SURGICAL HISTORY: Non-responsive. Non-responsive. RADIATION DOSE: 10.04 CTDI (mGy) ; Combined studies COMPARISON: No prior exams available for comparison. TECHNIQUE: Volumetric scanning was performed using a multirow detector CT scanner during bolus infus ion of 60 ml Omnipaque 350 (iohexol) nonionic water-soluble contrast as a cumulative dose for multip le exams. The data was postprocessed with a variety of visualization algorithms including full-volu me maximum intensity projection, multiplanar sliding thin-slab reformation, curved-planar reformation , and surface-rendering techniques. Using automated exposure control and adjustment of the mA and/or kV according to patient size, radiation dose was kept as low as reasonably achievable to obtain opti mal diagnostic quality images. DICOM format image data is available electronically for review and co mparison. Percent stenosis is calculated using the diameter of the stenotic region over the diameter of the nor mal distal internal carotid artery. FINDINGS: The left ICA is completely clotted starting at the takeoff and extends all the way of the supraclinoi d portion. There is moderate atherosclerotic plaquing at the origin of the right ICA with ulceration and stenosis on the order of 40%. The right vertebral artery appears diminutive in the left side is d ominant. CONCLUSION: 1. Complete occlusion of the left ICA. 2. Atherosclerotic soft plaque with ulceration of right ICA at the takeoff with slight stenosis. Report was called by [myself to Dr. Hope and Dr. Burgess at 17:15 a.m]. Electronically signed by: Anahi Woodard MD Board Certified Radiologist 12/07/2018 7:24 AM EST
[2018-12-07] MEDS ORDERED: Pantoprazole Inj 80 MG in Sodium Chlor 0.9% Inj 35 ML IV.SIG ONE (07:30)
[2018-12-07] MEDS ORDERED: Piperacil/Tazo 4.5 GM Premix 4.5 GM/100 ML BAG IV.SIG SCH (07:30)
[2018-12-07] MEDS ORDERED: Vancomycin Inj 1,000 MG in Sodium Chlor 0.9% Inj 250 ML IV.SIG ONE (07:30)
--- NOTE | 2018-12-07 07:35 | XR ---
EXAM DATE: 12/07/2018 7:30 AM EST AGE/SEX: 73 years / Male INDICATIONS: Post intubation. CLINICAL DATA: This is the patient's initial encounter. Patient reports that signs and symptoms have been present for 1 day and indicates a pain score of Nonresponsive. MEDICAL/SURGICAL HISTORY: . Pancreatitis. Hypertension. Cardiovascular disease. . Splenectomy . [place] [facility] [place]. . FINDINGS: Slight left lung base atelectasis and/or infiltrate is seen. NG tube is present with tip in the stomach. ET tube is present with tip overlapping approximately 3 above the ventura. CONCLUSION: Tubes placed with slight left lung base atelectasis and/or infiltrate. Electronically signed by: Anahi Woodard MD Board Certified Radiologist 12/07/2018 7:34 AM EST
[2018-12-07] MEDS ORDERED: Pantoprazole Inj 80 MG in Sodium Chlor 0.9% Inj 100 ML IV.CONT SCH (08:00)
[2018-12-07] MEDS ORDERED: fentaNYL Citrate Inj 100 MCG/2 ML Ampul ONE (08:05)
[2018-12-07] MEDS ORDERED: Heparin 10,000 UNITS/10 ML Vial (for IV use) ONE (08:35)
[2018-12-07] MEDS ORDERED: Phenylephrine Inj 40 MG in Sodium Chlor 0.9% Inj 496 ML IV.CONT PRN (10:36)
[2018-12-07] MEDS ORDERED: Magnesium Sulfate Inj 4 GM in Sodium Chlor 0.9% Inj 92 ML IV.SIG PRN (11:40)
[2018-12-07] MEDS ORDERED: Potassium Chlor 40 mEq Premix 40 MEQ/100 ML PIGGYBACK IV.SIG PRN ×2 (11:40)
[2018-12-07] MEDS ORDERED: Magnesium Sulfate Inj 2 GM in Sodium Chlor 0.9% Inj 96 ML IV.SIG PRN (11:40)
[2018-12-07] MEDS ORDERED: Potassium Phosphate 500 MG Soluble Tablet PO PRN ×2 (11:40)
[2018-12-07] MEDS ORDERED: Potassium Chloride Liq 20 MEQ/15 ML UDC PO PRN ×2 (11:40)
[2018-12-07] MEDS ORDERED: Sodium Phosphate Inj 30 MMOL in Sodium Chlor 0.9% Inj 250 ML IV.SIG PRN (11:40)
[2018-12-07] MEDS ORDERED: Bisacodyl 10 MG Supp RECTAL PRN (11:40)
[2018-12-07] MEDS ORDERED: Labetalol HCl Inj 100 MG/20 ML Vial IV.PUSH PRN (11:40)
[2018-12-07] MEDS ORDERED: Acetaminophen 325 MG Tablet PO PRN (11:40)
[2018-12-07] MEDS ORDERED: Magnesium Oxide 400 MG Tablet PO PRN (11:40)
[2018-12-07] MEDS ORDERED: Potassium Phosphate Inj 30 MMOL in Sodium Chlor 0.9% Inj 250 ML IV.SIG PRN (11:40)
[2018-12-07] MEDS ORDERED: Dextrose 50% in Water 50 ML Vial IV.PUSH PRN (11:40)
--- NOTE | 2018-12-07 11:40 | P.HPCC ---
History of Present Illness Service: Critical care medicine Primary Care Physician: UNKNOWN Chief Complaint: altered mental status History of Present Illness: 73yM last seen normal reports of 1:30am by notes found written by him presented with acute altered mentation and aphasia. initial NIHSS 11 --> 8, but he clinically decompensated and required intubation for a rapidly declining mental status. CT head negative for acute bleed. CTA head/neck demonstrates acute left ICA occlusion. taken emergently for interventional thrombectomy. arrives from embolectomy intubated, sedated. no additional information available from the patient. ROS unobtainable. Inpatient Certification: I certify that the inpatient services were ordered in accordance with Medicare regulations governing the order. This includes certification that hospital inpatient services are reasonable and necessary and in the case of services not specified as inpatient-only under 42 CFR 419.22(n), that they are appropriately provided as inpatient services in accordance to with the 2-midnight benchmark under 43 CFR 412.3(e) Review of Systems unobtainable due to endotracheal tube, unobtainable due to mental status PMFSH - History History Provided By: Medical Record - Medical History Medical History: Medical History (Last Reviewed 12/07/18 @ 11:35 by Hayden Velazquez MD) H/O acute pancreatitis HTN (hypertension) Heart disease High cholesterol - Surgical History Surgical History: Surgical History (Last Reviewed 12/07/18 @ 11:35 by Hayden Velazquez MD) H/O splenectomy - Family History Family History: Family History (Last Updated 12/07/18 @ 11:36 by Hayden Velazquez MD) Other Family history non-contributory - Social History I have reviewed the patient's Social History: Yes - Tobacco History Second Hand Smoke Exposure: No Tobacco Use In Past 30 Days: No Smoking Status: Never smoker Tobacco Type: Cigarettes - Alcohol History How Often Do You Have a Drink Containing Alcohol: Monthly or less - Substance Use History Substance History: No History of Abuse - Substance Use Type Marijuana Comment: medical Marijuana per medical record - Travel History Recent Travel in the [place] Within the Last 8 Weeks: No Recent Travel Out of the Country Within the Last 8 Weeks: No - Immunization History Tetanus Immunization: Unsure Medications and Allergies Active Medications: Active Medications Sodium Chloride (Ns Inj) 1,000 mls @ 70 mls/hr IV.CONT .[id number] [facility] Last Admin: 12/07/18 07:14 Dose: 70 mls/hr Propofol (Diprivan 1000 Mg/100 Ml Inj) 1,000 mg in 100 mls @ 2.34 mls/hr IV.CONT TITRATE PRN; Protocol PRN Reason: Per Protocol Last Titration: 12/07/18 10:15 Dose: 0 mcg/kg/min, 0 mls/hr Pantoprazole Sodium 80 mg/ (Sodium Chloride) 100 mls @ 10 mls/hr IV.CONT CONT LA Piperacillin/Tazobactam/Dextrose (Zosyn 4.5 Gm Premix) 4.5 gm in 100 mls @ 200 mls/hr IV.SIG ONCE LA Phenylephrine HCl 40 mg/ (Sodium Chloride) 500 mls @ 30 mls/hr IV.CONT TITRATE PRN; Protocol PRN Reason: Per Protocol Terbutaline Sulfate (Brethine Inj) 1 mg SQ UNSCH PRN PRN Reason: For Extravasation Allergies Allergy/AdvReac Type Severity Reaction Status Date / Time No Known Allergies Allergy Verified 09/21/18 15:52 Home Medications Medication Instructions Recorded Confirmed Type carbidopa-levodopa [Sinemet] 1 tab PO QID 09/21/18 09/21/18 History furosemide [Lasix] 20 mg PO DAILY 09/21/18 09/21/18 History losartan-hydrochlorothiazide 1 tab PO DAILY 09/21/18 09/21/18 History melatonin 10 mg PO HS PRN 09/21/18 09/21/18 History ropinirole 1 mg PO TID 09/21/18 09/21/18 History simvastatin [Zocor] 20 mg PO QPM 09/21/18 09/21/18 History Results - Labs CBC & Chem 7: 12/07/18 06:40 Labs: Short CBC 12/07/18 Range/Units 06:40 WBC 21.6 H (4.0-11.0) th/mm3 Hgb 16.0 (13.0-17.0) gm/dL Hct 48.1 (39.0-51.0) % Plt Count 247 (150-450) th/mm3 Cardiac Enzymes 12/07/18 Range/Units 06:40 Total Creatine Kinase 244 (39-308) U/L Troponin I 0.10 H (0.02-0.05) ng/mL - Imaging Impressions Head CT 12/07/18 06:37 CONCLUSION: No acute intracranial findings. Report was called by [[place] to Dr. William 0654 hours]. Head CTA 12/07/18 06:37 CONCLUSION: 1. The left ICA is completely clotted from the takeoff in the patient's neck all the way to supraclinoid ICA at the junction of M1 takeoff with diminished flow within left MCA branches. Report was called by [myself to Dr. Hope as well as Dr Burgess at the time of this dictation at 7:15 a.m.]. Neck CTA 12/07/18 06:37 CONCLUSION: 1. Complete occlusion of the left ICA. 2. Atherosclerotic soft plaque with ulceration of right ICA at the takeoff with slight stenosis. Report was called by [myself to Dr. Hope and Dr. Burgess at 17:15 [address] CT CAD 12/07/18 06:40 CONCLUSION: Physiological brain perfusion parameters with RAPID analysis as above. Findings were discussed with Dr. William at 17:14 a.m. including the results of CT angiography. The decision for consideration of therapy is multi factorial and multi disciplinary relying on subjective and objective clinical data. This data is not construed or intended to be the sole determinant of treatment eligibility. Chest X-Ray 12/07/18 07:06 CONCLUSION: Tubes placed with slight left lung base atelectasis and/or infiltrate. Exam Vital signs: Vital Signs 12/07/18 06:35 12/07/18 06:36 12/07/18 06:42 Temperature 36.7 C Pulse Rate 111 H 113 H Respiratory Rate 18 18 Blood Pressure 192/102 H 188/92 H Pulse Oximetry 98 98 99 12/07/18 06:57 12/07/18 07:05 12/07/18 07:06 Temperature Pulse Rate 110 H 122 H Respiratory Rate 16 26 H 16 Blood Pressure 178/88 H 219/122 H Pulse Oximetry 98 98 100 12/07/18 07:18 12/07/18 07:20 12/07/18 07:29 Temperature Pulse Rate 123 H 122 H 120 H Respiratory Rate 15 20 27 H Blood Pressure 212/114 H 235/124 H 194/99 H Pulse Oximetry 97 98 99 12/07/18 07:44 12/07/18 07:45 12/07/18 09:47 Temperature 37.0 C Pulse Rate 107 H 107 H Respiratory Rate 16 16 Blood Pressure 128/74 110/59 L Pulse Oximetry 98 100 96 12/07/18 09:53 12/07/18 10:00 Temperature Pulse Rate 107 H Respiratory Rate 16 16 Blood Pressure 142/80 H Pulse Oximetry 98 96 Intake & Output 12/06/18 12/07/18 12/07/18 18:59 06:59 18:59 Weight 85.275 kg 79.4 kg Other: Weight On Admission 79.4 kg Narrative: GENERAL: Elderly male, lying in bed, intubated, sedated, critically ill HEENT: Normocephalic. Atraumatic. Pupils equal, round, reactive, conjugate. Mucous membranes are moist NECK: Trachea is midline. There is no JVD. CHEST: Equal chest rise. PRVC. PEEP of 5. CARDIOVASCULAR: Normal rate, regular rhythm. On phenylephrine infusion to keep systolic blood pressure greater than 140. ABDOMEN: Soft, nontender, nondistended. No guarding. MUSCULOSKELETAL: Pulses 2+. No peripheral edema. NEUROLOGICAL: RASS -3. Follows commands weakly in all 4 extremities. Caprini VTE Risk Assessment Caprini VTE Risk Assessment: Moderate/High Risk (score >= 2) VTE Pharmacological Exception Reason: High risk for bleeding Caprini Risk Assessment Model: Point Value = 1 Point Value = 2 Point Value = 3 Point Value = 5 Age 41-60 Minor surgery BMI > 25 kg/m2 Swollen legs Varicose veins or History of unexplained or recurrent spontaneous Oral contraceptives or hormone replacement Sepsis (< 1 month) Serious lung disease, including pneumonia (< 1 month) Abnormal pulmonary function Acute myocardial infarction Congestive heart failure (< 1 month) History of inflammatory bowel disease Medical patient at bed rest Age 61-74 Arthroscopic surgery Major open surgery (> 45 min) Laparoscopic surgery (> 45 min) Malignancy Confined to bed (> 72 hours) Immobilizing plaster cast Central venous access Age >= 75 History of VTE Family history of VTE Factor V Leiden Prothrombin [id number] Lupus anticoagulant Anticardiolipin antibodies Elevated serum homocysteine Heparin-induced thrombocytopenia Other congenital or acquired thrombophilia Stroke (< 1 month) Elective arthroplasty Hip, pelvis, or leg fracture Acute spinal cord injury (< 1 month) Prophylaxis Regimen: Total Risk Factor Score Risk Level Prophylaxis Regimen 0-1 Low Early ambulation 2 Moderate Order ONE of the following: *Sequential Compression Device (SCD) *Heparin 5000 units SQ BID 3-4 Higher Order ONE of the following medications: *Heparin 5000 units SQ TID *Enoxaparin/Lovenox 40 mg SQ daily (WT < 150 kg, CrCl > 30 mL/min) *Enoxaparin/Lovenox 30 mg SQ daily (WT < 150 kg, CrCl > 10-29 mL/min) *Enoxaparin/Lovenox 30 mg SQ BID (WT < 150 kg, CrCl > 30 mL/min) AND/OR *Sequential Compression Device (SCD) 5 or more Highest Order ONE of the following medications: *Heparin 5000 units SQ TID (Preferred with Epidurals) *Enoxaparin/Lovenox 40 mg SQ daily (WT < 150 kg, CrCl > 30 mL/min) *Enoxaparin/Lovenox 30 mg SQ daily (WT < 150 kg, CrCl > 10-29 mL/min) *Enoxaparin/Lovenox 30 mg SQ BID (WT < 150 kg, CrCl > 30 mL/min) AND *Sequential Compression Device (SCD) Assessment and Plan - Assessment and Plan Plan: Assessment: 73yM with acute left ICA occlusion and new acute CVA complicated by respiratory failure. Critically ill. keep sbp > 140 to maintain cerebral perfusion and prevent further ischemia. watch for hemorrhagic conversion. Acute CVA acute left ICA occlusion Acute encephalopathy - s/p mechanical thrombectomy 12/07 in IR, successful - repeat head CT in AM - frequent neuro checks - PT/OT/ST - ASA starting tomorrow if no head bleed - DVT prophylaxis starting tomorrow if no head bleed - neurology consult - lipids, a1c - statin if indicated - 2d echo - keep sbp 140 - 160 mmHg. - phenylephrine to keep appropriate cerebral perfusion Acute hypoxic and hypercarbic respiratory failure - vent bundle - hob elevated - nebs - no sbt until mental status improves - wean fio2 for goal spo2 > 90% Critical care time: 40 minutes, exclusive of separately billable procedures. H&P: Quality - VTE Deep Vein Thrombosis/Pulmonary Embolism Present on Admission: No
--- NOTE | 2018-12-07 12:20 | ECG ---
Date Performed: 12/07/2018 Time Performed: 07:38:56 PTAGE: 73 years EKG: SUPRVENTRICULAR TACHYCARDIA POSSIBLE SINUS TACHYCARDIA INTRAVENTRICULAR CONDUCTION DELAY AB NORMAL ECG PREVIOUS TRACING : 09/21/2018 16.06 DOCTOR: Aminata Renae Interpretating Date/Time 12/07/2018 12:18:01
[2018-12-07 13:06] LABS: Chol/HDL Ratio 3.62 Ratio
[2018-12-07] MEDS: Insulin NovoLIN Regular Correctional Sugar Inj SQ SCH ×2 (13:27→17:57)
[2018-12-07] MEDS: Oral Hygiene Kit OROPHARYNG SCH ×2 (13:28→23:56)
[2018-12-07 13:51] LABS: Bacteria,Urine Rare /hpf; Bilirubin,Urine Negative (Negative); Clarity,Urine Clear (Clear); Color,Urine Amber (Yellw/Straw); Glucose,Urine (UA) 50 mg/dL (Negative); Leukocyte Esterase,Urine Trace (Negative); Nitrite,Urine Negative (Negative); Urobilinogen,Urine 4 or Greater mg/dL (Less than 2)
[2018-12-07] MEDS ORDERED: niCARdipine Inj 25 MG in Sodium Chlor 0.9% Inj 240 ML IV.CONT PRN (15:08)
[2018-12-07 15:24] LABS: Amphetamine Screen,Urine Neg (Neg); Barbiturate Screen,Urine Neg (Neg); Cannabinoid Screen,Urine Pos (Neg); Cocaine Screen,Urine Neg (Neg)
[2018-12-07 15:26] LABS: Opiate Screen,Urine Neg (Neg)
--- NOTE | 2018-12-07 15:29 | P.CONNEU ---
History of Present Illness Service: Neurology Primary Care Provider: UNKNOWN Chief Complaint: altered mental status History of Present Illness: 73-year-old male came into the ER for mental status changes noted this morning. Last seen normal 1:30 AM. He is out of the IV TPA window. Case discussed with interventional radiology after CT findings of distal left ICA occlusion. His NIH stroke scale score is 11 he is intubated for respiratory distress and difficulty protecting his airway. Review of Systems unobtainable due to endotracheal tube, unobtainable due to mental status PMFSH - History History Provided By: Medical Record - Medical History Medical History: Medical History (Last Reviewed 12/07/18 @ 14:26 by Jailyn Martin) H/O acute pancreatitis HTN (hypertension) Heart disease High cholesterol - Surgical History Surgical History: Surgical History (Last Reviewed 12/07/18 @ 14:27 by Jailyn Martin) H/O splenectomy - Family History Family History: Family History (Last Updated 12/07/18 @ 11:36 by Hayden Velazquez MD) Other Family history non-contributory - Tobacco History Second Hand Smoke Exposure: No Tobacco Use In Past 30 Days: No Smoking Status: Never smoker Tobacco Type: Cigarettes - Alcohol History How Often Do You Have a Drink Containing Alcohol: Monthly or less - Substance Use History Substance History: No History of Abuse - Substance Use Type Marijuana Comment: medical Marijuana per medical record - Travel History Recent Travel in the [place] Within the Last 8 Weeks: No Recent Travel Out of the Country Within the Last 8 Weeks: No - Immunization History Tetanus Immunization: Unsure Hx Influenza Vaccine This Season: Yes Medications and Allergies Active Medications: Active Medications Acetaminophen (Tylenol) 650 mg PO Q6H PRN PRN Reason: TEMPERATURE > 101 F Albuterol (Duoneb Neb (Prn)) 1 ampul NEB Q2HR NEB PRN PRN Reason: SHORTNESS OF BREATH Albuterol (Duoneb Neb (Braulio)) 1 ampul NEB Q4HR NEB BRAULIO Last Admin: 12/07/18 12:42 Dose: 1 ampul Atorvastatin Calcium (Lipitor) 80 mg PO DAILY BRAULIO Bisacodyl (Dulcolax Supp) 10 mg RECTAL DAILY PRN PRN Reason: if no BM in last 24h Chlorhexidine Gluconate (Peridex 0.12% Oral Kit) 15 ml OROPHARYNG BID@0800, 2000 BRAULIO Chlorhexidine Gluconate (Chlorhexidine 2% Cloth) 3 pack TOPICAL DAILY@0400 BRAULIO Stop: 12/13/18 03:59 Chlorhexidine Gluconate (Chlorhexidine 2% Cloth) 3 pack TOPICAL DAILY@0400 PRN PRN Reason: Extra cloth needed Stop: 12/13/18 03:59 Dextrose (D50w Vial) 50 ml IV.PUSH UNSCH PRN PRN Reason: PER HYPOGLYCEMIA PROTOCOL Famotidine (Pepcid Pf Inj) 20 mg IV.PUSH Q12HR BRAULIO Glucagon (Glucagon Inj) 1 mg OTHER PRN PRN PRN Reason: for Hypoglycemia Protocol Hydralazine HCl (Apresoline Inj) 10 mg IV.PUSH Q30M PRN PRN Reason: sbp > 180 Sodium Chloride (Ns Inj) 1,000 mls @ 70 mls/hr IV.CONT .[id number] [facility] Last Admin: 12/07/18 07:14 Dose: 70 mls/hr Propofol (Diprivan 1000 Mg/100 Ml Inj) 1,000 mg in 100 mls @ 2.34 mls/hr IV.CONT TITRATE PRN; Protocol PRN Reason: Per Protocol Last Titration: 12/07/18 10:15 Dose: 0 mcg/kg/min, 0 mls/hr Pantoprazole Sodium 80 mg/ (Sodium Chloride) 100 mls @ 10 mls/hr IV.CONT CONT BRAULIO Piperacillin/Tazobactam/Dextrose (Zosyn 4.5 Gm Premix) 4.5 gm in 100 mls @ 200 mls/hr IV.SIG ONCE BRAULIO Phenylephrine HCl 40 mg/ (Sodium Chloride) 500 mls @ 30 mls/hr IV.CONT TITRATE PRN; Protocol PRN Reason: Per Protocol Magnesium Sulfate 4 gm/ Sodium (Chloride) 100 mls @ 50 mls/hr IV.SIG UNSCH PRN PRN Reason: For Magnesium 0.9 - 1.1 mg/dL Magnesium Sulfate 2 gm/ Sodium (Chloride) 100 mls @ 50 mls/hr IV.SIG UNSCH PRN PRN Reason: For Magnesium 1.2 - 1.6 mg/dL Potassium Chloride (Kcl 40 Meq Premix Inj) 40 meq in 100 mls @ 25 mls/hr IV.SIG Q2H PRN PRN Reason: For Potassium 2.8 - 3.2 mEq/L Potassium Chloride (Kcl 20 Meq Premix Inj) 20 meq in 100 mls @ 50 mls/hr IV.SIG Q2H PRN PRN Reason: For Potassium 3.3 - 3.5 mEq/L Potassium Chloride (Kcl 40 Meq Premix Inj) 40 meq in 100 mls @ 25 mls/hr IV.SIG UNSCH PRN PRN Reason: For Potassium 3.3 - 3.5 mEq/L Potassium Chloride (Kcl 20 Meq Premix Inj) 20 meq in 100 mls @ 50 mls/hr IV.SIG Q2H PRN PRN Reason: For Potassium 2.8 - 3.2 mEq/L Potassium Phosphate 30 mmol/ (Sodium Chloride) 260 mls @ 42 mls/hr IV.SIG UNSCH PRN PRN Reason: SEE LABEL COMMENTS Sodium Phosphate 30 mmol/ (Sodium Chloride) 260 mls @ 42 mls/hr IV.SIG UNSCH PRN PRN Reason: For Phosphorus < 2.5 mg/dL Nicardipine HCl 25 mg/ Sodium (Chloride) 250 mls @ 50 mls/hr IV.CONT TITRATE PRN; Protocol PRN Reason: Per Protocol Insulin Human Regular (Novolin R Correctional Sugar Inj) 0 units SQ Q6HR BRAULIO; Protocol Last Admin: 12/07/18 13:27 Dose: Not Given Labetalol HCl (Trandate Inj) 10 mg IV.PUSH Q30M PRN PRN Reason: SYS BP GREATER THAN 180 MMHG Lactulose (Lactulose Liq) 30 ml PO BID [facility] Magnesium Oxide (Mag-Ox) 800 mg PO UNSCH PRN PRN Reason: For Magnesium 1.2 - 1.6 mg/dL Miscellaneous Medication () 1 each OROPHARYNG 0000,0400,1200,1600 [facility] Last Admin: 12/07/18 13:28 Dose: 1 each Ondansetron HCl (Zofran Inj) 4 mg IV.PUSH Q6H PRN PRN Reason: NAUSEA OR VOMITING Polyethylene Glycol (Miralax) 17 gm PO BID [facility] Potassium Chloride (Kcl Liq) 40 meq PO UNSCH PRN PRN Reason: Potassium level 3.3-3.5 mEq/L Potassium Chloride (Kcl Liq) 40 meq PO UNSCH PRN PRN Reason: POTASSIUM LESS THAN 3.5 Potassium Phosphate (K-Phos Original) 2,000 mg PO UNSCH PRN PRN Reason: SEE LABEL COMMENTS Potassium Phosphate (K-Phos Original) 2,000 mg PO Q4H PRN PRN Reason: Phosphorus Less Than 2.5 mg/dL Senna/Docusate Sodium (Noelle-Colace) 1 tab PO BID BRAULIO Sodium Chloride (Ns Flush) 2 ml IV.FLUSH UNSCH PRN PRN Reason: FLUSH AFTER USING IV ACCESS Terbutaline Sulfate (Brethine Inj) 1 mg SQ UNSCH PRN PRN Reason: For Extravasation Allergies Allergy/AdvReac Type Severity Reaction Status Date / Time No Known Allergies Allergy Verified 09/21/18 15:52 Home Medications Medication Instructions Recorded Confirmed Type carbidopa-levodopa [Sinemet] 1 tab PO QID 09/21/18 09/21/18 History furosemide [Lasix] 20 mg PO DAILY 09/21/18 09/21/18 History losartan-hydrochlorothiazide 1 tab PO DAILY 09/21/18 09/21/18 History melatonin 10 mg PO HS PRN 09/21/18 09/21/18 History ropinirole 1 mg PO TID 09/21/18 09/21/18 History simvastatin [Zocor] 20 mg PO QPM 09/21/18 09/21/18 History Exam Vital signs: Vital Signs 12/07/18 06:35 12/07/18 06:36 12/07/18 06:42 Temperature 98.0 F Pulse Rate 111 H 113 H Respiratory Rate 18 18 Blood Pressure 192/102 H 188/92 H Pulse Oximetry 98 98 99 12/07/18 06:57 12/07/18 07:05 12/07/18 07:06 Temperature Pulse Rate 110 H 122 H Respiratory Rate 16 26 H 16 Blood Pressure 178/88 H 219/122 H Pulse Oximetry 98 98 100 12/07/18 07:18 12/07/18 07:20 12/07/18 07:29 Temperature Pulse Rate 123 H 122 H 120 H Respiratory Rate 15 20 27 H Blood Pressure 212/114 H 235/124 H 194/99 H Pulse Oximetry 97 98 99 12/07/18 07:44 12/07/18 07:45 12/07/18 09:47 Temperature 98.6 F Pulse Rate 107 H 107 H Respiratory Rate 16 16 Blood Pressure 128/74 110/59 L Pulse Oximetry 98 100 96 12/07/18 09:53 12/07/18 10:00 12/07/18 10:30 Temperature Pulse Rate 107 H 95 H Respiratory Rate 16 16 16 Blood Pressure 142/80 H 128/72 Pulse Oximetry 98 96 99 12/07/18 11:00 12/07/18 11:30 12/07/18 12:00 Temperature 98.1 F Pulse Rate 94 H 91 H 87 Respiratory Rate 16 16 Blood Pressure 146/78 H 147/78 H 137/74 Pulse Oximetry 98 100 100 12/07/18 12:17 12/07/18 12:30 12/07/18 12:42 Temperature Pulse Rate 90 90 Respiratory Rate 17 17 Blood Pressure 143/72 H Pulse Oximetry 99 98 12/07/18 13:00 12/07/18 13:30 12/07/18 14:00 Temperature Pulse Rate 89 92 H 90 Respiratory Rate Blood Pressure 142/74 H 148/77 H 131/69 Pulse Oximetry 97 99 98 Intake & Output 12/06/18 12/07/18 12/07/18 18:59 06:59 18:59 Weight 85.275 kg 79.4 kg Other: Weight On Admission 79.4 kg Narrative: GENERAL: in NAD, on propofol SKIN: Warm and dry. HEAD: Atraumatic. Normocephalic. EYES: Pupils equal and round. No scleral icterus. ENT: No nasal bleeding or discharge. NECK: Trachea midline. No JVD. CARDIOVASCULAR: Regular rate and rhythm. RESPIRATORY: Intubated GASTROINTESTINAL: Abdomen soft, non-tender, nondistended. MUSCULOSKELETAL: Extremities without clubbing, cyanosis, or edema. NEUROLOGICAL: Intubated, mild left gaze preference, on propofol drip which is now been held, global aphasia, no upper extremity movement, withdrawing lower extremity bilateral extensor plantar PSYCHIATRIC: Calm - Constitutional no acute distress - Routine HEENT Exam Head: Present: normocephalic Results - Labs CBC & Chem 7: 12/07/18 06:40 Labs: Laboratory Results - last 24 hr 12/07/18 12/07/18 12/07/18 06:40 06:40 06:40 WBC 21.6 H RBC 5.31 Hgb 16.0 POC Hgb (Calc) 17.0 Hct 48.1 POC Hct 50.0 MCV 90.6 MCH 30.1 MCHC 33.2 RDW 14.7 Plt Count 247 MPV 9.1 Neut % (Auto) 87.3 H Lymph % (Auto) 4.9 L [place] % (Auto) 7.5 Eos % (Auto) 0.0 Baso % (Auto) 0.3 Neut # (Auto) 18.8 H Lymph # (Auto) 1.1 [place] # (Auto) 1.6 H Eos # (Auto) 0.0 Baso # (Auto) 0.1 WBC Differential . Differential Comment Auto diff final PT 10.5 INR 1.0 APTT 27.2 Fibrinogen 399 H POC Sodium 139 POC Potassium 3.7 POC Chloride 98 L POC BUN 23 H POC Creatinine 0.7 POC Glucose 224 H Total Creatine Kinase 244 Troponin I 0.10 H Triglycerides Cholesterol LDL Cholesterol, Calc HDL Cholesterol Cholesterol/HDL Ratio Urine Color Urine Clarity Urine pH Ur Specific [place] Urine Protein Urine Glucose (UA) Urine Ketones Urine Occult Blood Urine Nitrate Urine Bilirubin Urine Urobilinogen Ur Leukocyte Esterase Urine RBC Urine WBC Urine Bacteria Micro UA Comment Ur Microscopic Review Urine Culture Comments Blood Type Blood Type Recheck Antibody Screen 12/07/18 12/07/18 12/07/18 06:40 06:40 12:06 WBC RBC Hgb POC Hgb (Calc) Hct POC Hct MCV MCH MCHC RDW Plt Count MPV Neut % (Auto) Lymph % (Auto) [place] % (Auto) Eos % (Auto) Baso % (Auto) Neut # (Auto) Lymph # (Auto) [place] # (Auto) Eos # (Auto) Baso # (Auto) WBC Differential Differential Comment PT INR APTT Fibrinogen POC Sodium POC Potassium POC Chloride POC BUN POC Creatinine POC Glucose 177 H Total Creatine Kinase Troponin I Triglycerides 111 Cholesterol 174 LDL Cholesterol, Calc 104 H HDL Cholesterol 48.0 Cholesterol/HDL Ratio 3.62 Urine Color Urine Clarity Urine pH Ur Specific [place] Urine Protein Urine Glucose (UA) Urine Ketones Urine Occult Blood Urine Nitrate Urine Bilirubin Urine Urobilinogen Ur Leukocyte Esterase Urine RBC Urine WBC Urine Bacteria Micro UA Comment Ur Microscopic Review Urine Culture Comments Blood Type O Positive Blood Type Recheck Required Antibody Screen Negative 12/07/18 13:00 WBC RBC Hgb POC Hgb (Calc) Hct POC Hct MCV MCH MCHC RDW Plt Count MPV Neut % (Auto) Lymph % (Auto) [place] % (Auto) Eos % (Auto) Baso % (Auto) Neut # (Auto) Lymph # (Auto) [place] # (Auto) Eos # (Auto) Baso # (Auto) WBC Differential Differential Comment PT INR APTT Fibrinogen POC Sodium POC Potassium POC Chloride POC BUN POC Creatinine POC Glucose Total Creatine Kinase Troponin I Triglycerides Cholesterol LDL Cholesterol, Calc HDL Cholesterol Cholesterol/HDL Ratio Urine Color Whit Urine Clarity Clear Urine pH 6.0 Ur Specific [place] Greater than 1.060 H Urine Protein 100 H Urine Glucose (UA) 50 Urine Ketones Negative Urine Occult Blood Large H Urine Nitrate Negative Urine Bilirubin Negative Urine Urobilinogen 4 or greater Ur Leukocyte Esterase Trace H Urine RBC Urine WBC 6 H Urine Bacteria Rare H Micro UA Comment Cath-culture ind Ur Microscopic Review Not Reportable Urine Culture Comments Cath-cult indicated Blood Type Blood Type Recheck Antibody Screen - Imaging Impressions Head CT 12/07/18 06:37 CONCLUSION: No acute intracranial findings. Report was called by [[place] to Dr. William 0654 hours]. Head CTA 12/07/18 06:37 CONCLUSION: 1. The left ICA is completely clotted from the takeoff in the patient's neck all the way to supraclinoid ICA at the junction of M1 takeoff with diminished flow within left MCA branches. Report was called by [myself to Dr. Hope as well as Dr Burgess at the time of this dictation at 7:15 a.m.]. Neck CTA 12/07/18 06:37 CONCLUSION: 1. Complete occlusion of the left ICA. 2. Atherosclerotic soft plaque with ulceration of right ICA at the takeoff with slight stenosis. Report was called by [myself to Dr. Hope and Dr. Burgess at 17:15 a[address] CAD 12/07/18 06:40 CONCLUSION: Physiological brain perfusion parameters with RAPID analysis as above. Findings were discussed with Dr. William at 17:14 a.m. including the results of CT angiography. The decision for consideration of therapy is multi factorial and multi disciplinary relying on subjective and objective clinical data. This data is not construed or intended to be the sole determinant of treatment eligibility. Chest X-Ray 12/07/18 07:06 CONCLUSION: Tubes placed with slight left lung base atelectasis and/or infiltrate. Review/Management - Diagnosis (1) Acute ischemic left MCA stroke Code(s): I63.512 - Cerebral infarction due to unspecified occlusion or stenosis of left middle cerebral artery Status: Acute Current Visit: Yes (2) Left carotid artery occlusion Code(s): I65.22 - Occlusion and stenosis of left carotid artery Status: Acute Current Visit: Yes (3) Stroke Code(s): I63.9 - Cerebral infarction, unspecified Status: Acute Current Visit: Yes (4) Leukocytosis Code(s): D72.829 - Elevated white blood cell count, unspecified Status: Acute Current Visit: Yes (5) Pneumonia Code(s): J18.9 - Pneumonia, unspecified organism Status: Acute Current Visit : Yes (6) GI bleed Code(s): K92.2 - Gastrointestinal hemorrhage, unspecified Status: Acute Current Visit: Yes (7) Respiratory failure Code(s): J96.90 - Respiratory failure, unspecified, unspecified whether with hypoxia or hypercapnia Status: Acute Current Visit: Yes - Review/Management Plan: Status post left carotid stent placement, mechanical thromboembolectomy Etiology would include aortic arch athero emboli, versus A. fib Recommendation Echo Follow-up CT brain in a.m. Keep blood pressure less than 180/100 however avoid hypotension SCDs Fasting lipids Hold blood thinners for [address] negative for ICH Appreciate critical care Follow exam (3) Stroke Qualifiers: CVA mechanism: occlusion Precerebral and cerebral artery: middle cerebral artery Laterality of affected vessel: left Qualified Code(s): I63.512 - Cerebral infarction due to unspecified occlusion or stenosis of left middle cerebral artery (4) Leukocytosis Qualifiers: Leukocytosis type: unspecified Qualified Code(s): D72.829 - Elevated white blood cell count, unspecified (5) Pneumonia Qualifiers: Pneumonia type: due to unspecified organism Laterality: left Lung location: lower lobe of lung Qualified Code(s): J18.1 - Lobar pneumonia, unspecified organism (6) GI bleed Qualifiers: GI bleed type/associated pathology: unspecified gastrointestinal hemorrhage type Qualified Code(s): K92.2 - Gastrointestinal hemorrhage, unspecified (7) Respiratory failure Qualifiers: Chronicity: acute Respiratory failure complication: unspecified whether with hypoxia or hypercapnia Qualified Code(s): J96.00 - Acute respiratory failure, unspecified whether with hypoxia or hypercapnia
--- NOTE | 2018-12-07 16:50 | ECHRPT ---
Indication: CVA/TIA CONCLUSIONS Technically difficult study, making assessment of left ventricular function and wall motion suboptim al. Normal left ventricular size. Wall thickness is measured at the upper limits of normal. Nonobstructive prominent basal hypertrophy is present consistent with sigmoid septum. Left ventricul ar systolic function is low normal to mildly reduced with an estimated ejection fraction in the range o f 45-50%. Septal wall motion is abnormal possibly due to an underlying intraventricular conduction delay. Mild focal aortic valve sclerosis is present. There is trace tricuspid valve regurgitation. The estimated pulmonary arterial pressure is 17 mmHg. There is a small circumferential pericardial effusion present. No definite echocardiographic evide nce for tamponade physiology. BP: / HR: Rhythm: MEASUREMENTS (Male / Female) Normal Values Technical Quality: 2D ECHO LV Diastolic Diameter PLAX 4.3 cm 4.2 - 5.9 / 3.9 - 5.3 cm LV Systolic Diameter PLAX 3.4 cm IVS Diastolic Thickness 1.8 cm 0.6 - 1.0 / 0.6 - 0.9 cm LVPW Diastolic Thickness 1.2 cm 0.6 - 1.0 / 0.6 - 0.9 cm LV Relative Wall Thickness 0.7 RV Internal Dim ED PLAX 3.8 cm LVOT Diameter 2.0 cm Aortic Root Diameter 2.8 cm LA Systolic Diameter LX 3.7 cm 3.0 - 4.0 / 2.7 - 3.8 cm DOPPLER AV Peak Velocity 153.0 cm/s AV Peak Gradient 9.4 mmHg LVOT Peak Velocity 92.5 cm/s LVOT Peak Gradient 3.4 mmHg AV Area Cont Eq pk 1.9 cm Mitral E Point Velocity 85.9 cm/s LV E' Lateral Velocity 14.4 cm/s Mitral E to LV E' Lateral Ratio 6.0 TR Peak Velocity 133.0 cm/s TR Peak Gradient 7.1 mmHg Right Atrial Pressure 10.0 mmHg Pulmonary Artery Systolic Pressu 17.1 mmHg Right Ventricular Systolic Press 17.1 mmHg FINDINGS LEFT VENTRICLE Technically difficult study, making assessment of left ventricular function and wall motion suboptim al. Normal left ventricular size. Wall thickness is measured at the upper limits of normal. Nonobstructive prominent basal hypertrophy is present consistent with sigmoid septum. Left ventricul ar systolic function is low normal to mildly reduced with an estimated ejection fraction in the range o f 45-50%. Septal wall motion is abnormal possibly due to an underlying intraventricular conduction delay. RIGHT VENTRICLE Normal right ventricular size and systolic function. LEFT ATRIUM The left atrial size is normal. RIGHT ATRIUM The right atrial size is normal. ATRIAL SEPTUM Normal atrial septal thickness without atrial level shunting by limited color doppler interrogation. AORTA The aortic root and proximal ascending aorta are normal in size on limited imaging. MITRAL VALVE Structurally normal mitral valve. No mitral valve stenosis or regurgitation. AORTIC VALVE Mild focal aortic valve sclerosis is present. TRICUSPID VALVE There is trace tricuspid valve regurgitation. The estimated pulmonary arterial pressure is 17 mmHg. PULMONARY VALVE No pulmonary valve regurgitation or stenosis. VESSELS The inferior vena cava is normal in size. PERICARDIUM There is a small circumferential pericardial effusion present. No definite echocardiographic evide nce for tamponade physiology. Jayme Montana MD (Electronically Signed) Final Date:07 December 2018 16:49
[2018-12-07 17:01] LABS: Hemoglobin A1c 8.9 % (4.3-6.0)
[2018-12-07] MEDS: Chlorhexidine 0.12% Oral Kit 15 ML UDC OROPHARYNG SCH (21:11)
[2018-12-07] MEDS: Polyethylene Glycol 3350 17 GM Packet PO SCH (21:12)
[2018-12-07] MEDS: Famotidine PF Inj 20 MG/2 ML Vial IV.PUSH SCH (21:12)
[2018-12-07] MEDS: Senna/Docusate Sodium 8.6/50 MG Tablet PO SCH (21:13)
[2018-12-07 21:26] LABS: ABG Base Excess 4.6 mmol/L (-2-2); ABG PCO2 33 mmHg (38-42); ABG PO2 100 mmHg (61-120)
[2018-12-08] MEDS: Oral Hygiene Kit OROPHARYNG SCH ×4 (01:10→17:23)
[2018-12-08] MEDS: Propofol 1000 mg/100 ml Inj 1,000 MG/100 ML BOTTLE IV.CONT PRN (01:11)
[2018-12-08] MEDS: Insulin NovoLIN Regular Correctional Sugar Inj SQ SCH ×4 (01:12→18:00)
[2018-12-08] MEDS: Chlorhexidine Gluconate 2% 1 Pack (2 Cloths) TOPICAL SCH (03:05)
[2018-12-08] MEDS ORDERED: Chlorhexidine Gluconate 2% 1 Pack (2 Cloths) TOPICAL PRN (04:00)
--- NOTE | 2018-12-08 04:26 | XR ---
EXAM DATE: 12/08/2018 4:04 AM EST AGE/SEX: 73 years / Male INDICATIONS: Atelectasis. CLINICAL DATA: This is the patient's subsequent encounter. Patient reports that signs and symptoms h ave been present for 2 days and indicates a pain score of Nonresponsive. MEDICAL/SURGICAL HISTORY: . Pancreatitis. Heart disease. High cholesterol. HTN. Splenectomy. COMPARISON: [facility], CHEST 1V SINGLE AP, 12/07/2018. . FINDINGS: Endotracheal tube and nasogastric tube are stable in good position. Increase in confluence of left ba se infiltrate. Mild persistent infiltrate in the right base. Cardiac contours are grossly stable. CONCLUSION: Slight worsening in left base infiltrate and effusion. Electronically signed by: Nadeem Moon MD Board Certified Radiologist 12/08/2018 4:25 AM EST
--- NOTE | 2018-12-08 04:42 | CT ---
EXAM DATE: 12/08/2018 4:36 AM EST AGE/SEX: 73 years / Male INDICATIONS: Altered mental status. CLINICAL DATA: This is the patient's initial encounter. Patient reports that signs and symptoms have been present for 1 day and indicates a pain score of Nonresponsive. MEDICAL/SURGICAL HISTORY: Hypertension. Pancreatitis. Cerebrovascular disease. . Thrombectomy. Ca rotid stent placement. RADIATION DOSE: 66.34 CTDI (mGy) COMPARISON: [facility], CT HEAD W/O CONTRAST, 09/21/2018. . TECHNIQUE: CT of the head without contrast. Using automated exposure control and adjustment of the mA and/or kV according to patient size, radiation dose was kept as low as reasonably achievable to ob tain optimal diagnostic quality images. DICOM format image data is available electronically for revi ew and comparison. FINDINGS: Evolving left MCA territory ischemic infarction. No significant global mass effect. No evidence of he morrhage. Contralateral right hemisphere is benign in appearance. Posterior fossa and brainstem struc tures are unremarkable. Mild mucosal disease in the facial sinuses. CONCLUSION: 1. Evolving left MCA stroke. No evidence of hemorrhage. . Electronically signed by: Nadeem Moon MD Board Certified Radiologist 12/08/2018 4:40 AM EST
[2018-12-08 05:40] LABS: Baso # (Auto) 0.1 th/mm3 (0.0-0.2); Baso % (Auto) 0.7 % (0.0-2.0); Eos # (Auto) 0.1 th/mm3 (0.0-0.4); Eos % (Auto) 0.8 % (0.0-4.0); Hematocrit 41.4 % (39.0-51.0); Hemoglobin 13.6 gm/dL (13.0-17.0); Lymph # (Auto) 2.3 th/mm3 (1.0-4.8); Lymph % (Auto) 15.2 % (9.0-44.0); Mean Corpuscular HGB Conc 32.8 % (32.0-36.0); Mean Corpuscular Hemoglobin 29.5 pg (27.0-34.0); Mean Corpuscular Volume 90.1 fL (80.0-100.0); Mean Platelet Volume 9.1 fL (7.0-11.0); Mono # (Auto) 1.8 th/mm3 (0.0-0.9); Mono % (Auto) 11.8 % (0.0-8.0); Neut # (Auto) 10.7 th/mm3 (1.8-7.7); Neut % (Auto) 71.5 % (16.0-70.0); Platelet Count 205 th/mm3 (150-450); Red Cell Distribution Width 14.7 % (11.6-17.2); White Blood Count 14.9 th/mm3 (4.0-11.0)
[2018-12-08 06:09] LABS: Anion Gap 9 meq/L (5-15); Blood Urea Nitrogen 16 mg/dL (7-18); Calcium 7.5 mg/dL (8.5-10.1); Carbon Dioxide 26.7 meq/L (21.0-32.0); Chloride 107 meq/L (98-107); Glomerular Filtration Rate Greater Than 89 mL/min (>89); Glucose,Random 159 mg/dL (74-106); Magnesium 1.8 mg/dL (1.5-2.5); Phosphorus 2.6 mg/dL (2.5-4.9); Sodium 143 meq/L (136-145)
[2018-12-08] MEDS: Potassium Chlor 20 mEq Premix 20 MEQ/100 ML PIGGYBACK IV.SIG PRN ×2 (06:24→08:09)
[2018-12-08] MEDS: Chlorhexidine 0.12% Oral Kit 15 ML UDC OROPHARYNG SCH ×2 (08:09→21:42)
--- NOTE | 2018-12-08 09:43 | MR ---
EXAM DATE: 12/08/2018 9:23 AM EST AGE/SEX: 73 years / Male INDICATIONS: Aphasia. CLINICAL DATA: This is the patient's subsequent encounter. Patient reports that signs and symptoms h ave been present for 2 days and indicates a pain score of Nonresponsive. MEDICAL/SURGICAL HISTORY: Hypertension. Pancreatitis. skin cancer Appendectomy. [place] [facility] [place]ERE[place]AL [place], 12/07/2018. . TECHNIQUE: Multiplanar, multisequence examination of the brain was performed without contrast. FINDINGS: Cerebrum: There is a large area of acute ischemia in the left anterior sylvian region with smaller c ortical areas of ischemia in the left parietal occipital region. Ischemic changes do extend into the head of the caudate.. There is minimal hemosiderin and old infarct basal ganglia right side. There ar e no acute ischemic changes in the right hemisphere. There are no extra-axial fluid collections appre ciated. Posterior Fossa: The cerebellum and brainstem are intact. The 4th ventricle is midline. The cerebel lopontine angle is unremarkable. The cerebellar tonsils are normal in position. Extracranial: The visualized portions of the orbits and paranasal sinuses are unremarkable. CONCLUSION: 1. Acute evolving infarct left MCA as described above. There is no significant mass effect. Electronically signed by: Marquis Alegria MD Board Certified Radiologist 12/08/2018 9:41 AM EST
--- NOTE | 2018-12-08 10:03 | P.PNNEU ---
Subjective Subjective Comments: No acute events, labile blood pressures Active Medications: Active Medications Acetaminophen (Tylenol) 650 mg PO Q6H PRN PRN Reason: TEMPERATURE > 101 F Albuterol (Duoneb Neb (Prn)) 1 ampul NEB Q2HR NEB PRN PRN Reason: SHORTNESS OF BREATH Albuterol (Duoneb Neb (Braulio)) 1 ampul NEB Q4HR NEB [facility] Last Admin: 12/08/18 07:51 Dose: 1 ampul Aspirin (Aspirin) 325 mg PO DAILY [facility] Atorvastatin Calcium (Lipitor) 80 mg PO DAILY [facility] Bisacodyl (Dulcolax Supp) 10 mg RECTAL DAILY PRN PRN Reason: if no BM in last 24h Chlorhexidine Gluconate (Peridex 0.12% Oral Kit) 15 ml OROPHARYNG BID@0800, 2000 [facility] Last Admin: 12/08/18 08:09 Dose: 15 ml Chlorhexidine Gluconate (Chlorhexidine 2% Cloth) 3 pack TOPICAL DAILY@0400 [facility] Stop: 12/13/18 03:59 Last Admin: 12/08/18 03:05 Dose: 3 pack Chlorhexidine Gluconate (Chlorhexidine 2% Cloth) 3 pack TOPICAL DAILY@0400 PRN PRN Reason: Extra cloth needed Stop: 12/13/18 03:59 Dextrose (D50w Vial) 50 ml IV.PUSH UNSCH PRN PRN Reason: PER HYPOGLYCEMIA PROTOCOL Famotidine (Pepcid Pf Inj) 20 mg IV.PUSH Q12HR [facility] Last Admin: 12/07/18 21:12 Dose: 20 mg Glucagon (Glucagon Inj) 1 mg OTHER PRN PRN PRN Reason: for Hypoglycemia Protocol Hydralazine HCl (Apresoline Inj) 10 mg IV.PUSH Q30M PRN PRN Reason: sbp > 180 Sodium Chloride (Ns Inj) 1,000 mls @ 70 mls/hr IV.CONT .[id number] [facility] Last Infusion: 12/08/18 07:20 Dose: 70 mls/hr Propofol (Diprivan 1000 Mg/100 Ml Inj) 1,000 mg in 100 mls @ 2.34 mls/hr IV.CONT TITRATE PRN; Protocol PRN Reason: Per Protocol Last Titration: 12/08/18 07:39 Dose: 30 mcg/kg/min, 14.04 mls/hr Pantoprazole Sodium 80 mg/ (Sodium Chloride) 100 mls @ 10 mls/hr IV.CONT CONT BRAULIO Piperacillin/Tazobactam/Dextrose (Zosyn 4.5 Gm Premix) 4.5 gm in 100 mls @ 200 mls/hr IV.SIG ONCE BRAULIO Phenylephrine HCl 40 mg/ (Sodium Chloride) 500 mls @ 30 mls/hr IV.CONT TITRATE PRN; Protocol PRN Reason: Per Protocol Last Titration: 12/08/18 01:54 Dose: 0 mcg/min, 0 mls/hr Magnesium Sulfate 4 gm/ Sodium (Chloride) 100 mls @ 50 mls/hr IV.SIG UNSCH PRN PRN Reason: For Magnesium 0.9 - 1.1 mg/dL Magnesium Sulfate 2 gm/ Sodium (Chloride) 100 mls @ 50 mls/hr IV.SIG UNSCH PRN PRN Reason: For Magnesium 1.2 - 1.6 mg/dL Potassium Chloride (Kcl 40 Meq Premix Inj) 40 meq in 100 mls @ 25 mls/hr IV.SIG Q2H PRN PRN Reason: For Potassium 2.8 - 3.2 mEq/L Potassium Chloride (Kcl 20 Meq Premix Inj) 20 meq in 100 mls @ 50 mls/hr IV.SIG Q2H PRN PRN Reason: For Potassium 3.3 - 3.5 mEq/L Potassium Chloride (Kcl 40 Meq Premix Inj) 40 meq in 100 mls @ 25 mls/hr IV.SIG UNSCH PRN PRN Reason: For Potassium 3.3 - 3.5 mEq/L Potassium Chloride (Kcl 20 Meq Premix Inj) 20 meq in 100 mls @ 50 mls/hr IV.SIG Q2H PRN PRN Reason: For Potassium 2.8 - 3.2 mEq/L Last Admin: 12/08/18 08:09 Dose: 50 mls/hr Potassium Phosphate 30 mmol/ (Sodium Chloride) 260 mls @ 42 mls/hr IV.SIG UNSCH PRN PRN Reason: SEE LABEL COMMENTS Sodium Phosphate 30 mmol/ (Sodium Chloride) 260 mls @ 42 mls/hr IV.SIG UNSCH PRN PRN Reason: For Phosphorus < 2.5 mg/dL Nicardipine HCl 25 mg/ Sodium (Chloride) 250 mls @ 50 mls/hr IV.CONT TITRATE PRN; Protocol PRN Reason: Per Protocol Last Titration: 12/08/18 07:20 Dose: 0 mg/hr, 0 mls/hr Insulin Human Regular (Novolin R Correctional Sugar Inj) 0 units SQ Q6HR [facility]; Protocol Last Admin: 12/08/18 06:20 Dose: Not Given Labetalol HCl (Trandate Inj) 10 mg IV.PUSH Q30M PRN PRN Reason: SYS BP GREATER THAN 180 MMHG Lactulose (Lactulose Liq) 30 ml PO BID [facility] Last Admin: 12/07/18 21:13 Dose: 30 ml Magnesium Oxide (Mag-Ox) 800 mg PO UNSCH PRN PRN Reason: For Magnesium 1.2 - 1.6 mg/dL Miscellaneous Medication () 1 each OROPHARYNG 0000,0400,1200,1600 [facility] Last Admin: 12/08/18 03:05 Dose: 1 each Ondansetron HCl (Zofran Inj) 4 mg IV.PUSH Q6H PRN PRN Reason: NAUSEA OR VOMITING Polyethylene Glycol (Miralax) 17 gm PO BID [facility] Last Admin: 12/07/18 21:12 Dose: 17 gm Potassium Chloride (Kcl Liq) 40 meq PO UNSCH PRN PRN Reason: Potassium level 3.3-3.5 mEq/L Potassium Chloride (Kcl Liq) 40 meq PO UNSCH PRN PRN Reason: POTASSIUM LESS THAN 3.5 Last Admin: 12/08/18 08:05 Dose: 40 meq Potassium Phosphate (K-Phos Original) 2,000 mg PO UNSCH PRN PRN Reason: SEE LABEL COMMENTS Potassium Phosphate (K-Phos Original) 2,000 mg PO Q4H PRN PRN Reason: Phosphorus Less Than 2.5 mg/dL Senna/Docusate Sodium (Noelle-Colace) 1 tab PO BID [facility] Last Admin: 12/07/18 21:13 Dose: 1 tab Sodium Chloride (Ns Flush) 2 ml IV.FLUSH UNSCH PRN PRN Reason: FLUSH AFTER USING IV ACCESS Terbutaline Sulfate (Brethine Inj) 1 mg SQ UNSCH PRN PRN Reason: For Extravasation Allergies/Adverse Reactions: Allergies Allergy/AdvReac Type Severity Reaction Status Date / Time No Known Allergies Allergy Verified 09/21/18 15:52 Review of Systems unobtainable due to endotracheal tube, unobtainable due to mental status Physical Exam Vital signs: Vital Signs 12/07/18 10:00 12/07/18 10:30 12/07/18 11:00 Temperature Pulse Rate 107 H 95 H 94 H Respiratory Rate 16 16 16 Blood Pressure 142/80 H 128/72 146/78 H Pulse Oximetry 96 99 98 12/07/18 11:30 12/07/18 12:00 12/07/18 12:17 Temperature 98.1 F Pulse Rate 91 H 87 Respiratory Rate 16 17 Blood Pressure 147/78 H 137/74 Pulse Oximetry 100 100 99 12/07/18 12:30 12/07/18 12:42 12/07/18 13:00 Temperature Pulse Rate 90 90 89 Respiratory Rate 17 Blood Pressure 143/72 H 142/74 H Pulse Oximetry 98 97 12/07/18 13:30 12/07/18 14:00 12/07/18 14:15 Temperature Pulse Rate 92 H 90 89 Respiratory Rate Blood Pressure 148/77 H 131/69 Pulse Oximetry 99 98 98 12/07/18 14:30 12/07/18 14:45 12/07/18 15:00 Temperature Pulse Rate 93 H 92 H 90 Respiratory Rate Blood Pressure 155/89 H 138/71 Pulse Oximetry 98 98 97 12/07/18 15:15 12/07/18 15:23 12/07/18 15:30 Temperature Pulse Rate 89 90 89 Respiratory Rate 16 Blood Pressure 144/73 H Pulse Oximetry 97 97 98 12/07/18 15:45 12/07/18 16:00 12/07/18 16:15 Temperature 98.6 F Pulse Rate 93 H 96 H 94 H Respiratory Rate Blood Pressure 131/61 Pulse Oximetry 99 96 96 12/07/18 16:30 12/07/18 16:45 12/07/18 17:00 Temperature Pulse Rate 92 H 92 H 95 H Respiratory Rate Blood Pressure 131/65 159/74 H Pulse Oximetry 96 96 97 12/07/18 17:15 12/07/18 17:30 12/07/18 17:45 Temperature Pulse Rate 92 H 91 H 92 H Respiratory Rate Blood Pressure 142/72 H Pulse Oximetry 96 96 96 12/07/18 18:00 12/07/18 18:30 12/07/18 19:00 Temperature Pulse Rate 92 H 90 93 H Respiratory Rate 16 16 16 Blood Pressure 142/71 H 138/71 149/77 H Pulse Oximetry 96 96 96 12/07/18 19:30 12/07/18 20:00 12/07/18 20:09 Temperature 100.0 F H Pulse Rate 94 H 87 90 Respiratory Rate 16 16 17 Blood Pressure 145/72 H 143/72 H Pulse Oximetry 96 96 12/07/18 20:30 12/07/18 21:00 12/07/18 21:30 Temperature Pulse Rate 89 88 87 Respiratory Rate 16 16 16 Blood Pressure 159/80 H 163/87 H Pulse Oximetry 97 98 98 12/07/18 22:00 12/07/18 22:21 12/07/18 22:30 Temperature Pulse Rate 87 87 88 Respiratory Rate 16 16 16 Blood Pressure Pulse Oximetry 98 98 98 12/07/18 22:57 12/07/18 23:00 12/07/18 23:15 Temperature Pulse Rate 89 88 92 H Respiratory Rate 16 16 Blood Pressure 168/86 H 165/87 H 130/66 Pulse Oximetry 97 97 96 12/07/18 23:30 12/07/18 23:34 12/07/18 23:45 Temperature Pulse Rate 92 H 92 H 92 H Respiratory Rate 16 14 Blood Pressure 130/66 Pulse Oximetry 95 95 97 12/08/18 00:00 12/08/18 00:15 12/08/18 00:30 Temperature 100.7 F H Pulse Rate 91 H 90 89 Respiratory Rate 16 16 Blood Pressure 151/73 H 151/76 H Pulse Oximetry 96 97 97 12/08/18 00:45 12/08/18 01:00 12/08/18 01:15 Temperature Pulse Rate 87 92 H 92 H Respiratory Rate 16 16 Blood Pressure 149/74 H Pulse Oximetry 97 96 95 12/08/18 01:30 12/08/18 01:51 12/08/18 02:00 Temperature 99.1 F Pulse Rate 93 H 90 88 Respiratory Rate 16 14 Blood Pressure 147/77 H 136/69 Pulse Oximetry 94 L 95 12/08/18 02:30 12/08/18 03:00 12/08/18 03:29 Temperature Pulse Rate 86 94 H 87 Respiratory Rate 14 Blood Pressure 145/70 H 163/86 H Pulse Oximetry 96 96 12/08/18 03:30 12/08/18 03:34 12/08/18 04:00 Temperature 99.1 F Pulse Rate 92 H 87 Respiratory Rate 14 Blood Pressure 161/83 H 139/73 Pulse Oximetry 98 96 96 12/08/18 04:25 12/08/18 05:00 12/08/18 05:30 Temperature Pulse Rate 85 78 Respiratory Rate Blood Pressure 118/59 L 146/72 H Pulse Oximetry 100 95 97 12/08/18 06:00 12/08/18 07:00 12/08/18 07:15 Temperature Pulse Rate 80 90 87 Respiratory Rate 15 Blood Pressure Pulse Oximetry 97 96 96 12/08/18 07:30 12/08/18 07:44 12/08/18 07:45 Temperature Pulse Rate 86 91 H 89 Respiratory Rate 15 Blood Pressure Pulse Oximetry 97 97 96 12/08/18 07:57 12/08/18 08:00 12/08/18 09:04 Temperature 99.6 F Pulse Rate 88 86 Respiratory Rate 14 14 Blood Pressure Pulse Oximetry 97 100 97 Intake & Output 12/07/18 12/08/18 12/08/18 18:59 06:59 18:59 Intake Total 100 / 100 1135 / 1135 100 / 100 Output Total 200 / 200 Balance 100 / 100 935 / 935 100 / 100 Weight 79.4 kg 81.2 kg Intake: IV 100 / 100 1135 / 1135 100 / 100 Diprivan 1000 mg/100 ml Inj 1, 100 / 100 100 / 100 000 mg In 100 ml @ 5 MCG/KG/MIN 2.34 mls/hr IV.CONT TITRATE PRN Rx#:[id number] NS Inj 1,000 ML @ 70 mls/hr IV. 1000 / 1000 CONT .[id number] [facility] Rx#:[id number] KCl 20 mEq Premix Inj 20 meq In 100 / 100 100 ml @ 50 mls/hr IV.SIG Q2H PRN Rx#:[id number] Output: Urine Amount (Catheter) 150 / 150 Condom 150 / 150 Gastric Drainage 50 / 50 Orogastric Tube 50 / 50 Other: Weight On Admission 79.4 kg Narrative: GENERAL: in NAD, on propofol SKIN: Warm and dry. HEAD: Atraumatic. Normocephalic. EYES: Pupils equal and round. No scleral icterus. ENT: No nasal bleeding or discharge. NECK: Trachea midline. No JVD. CARDIOVASCULAR: Regular rate and rhythm. RESPIRATORY: Intubated GASTROINTESTINAL: Abdomen soft, non-tender, nondistended. MUSCULOSKELETAL: Extremities without clubbing, cyanosis, NEUROLOGICAL: Intubated, somnolent somewhat difficult to arouse, not following, mild left gaze preference, no upper extremity movement, withdrawing lower extremity bilateral extensor plantar PSYCHIATRIC: Calm - Constitutional no acute distress - Urinary Catheter Management Indwelling Urethral Catheter Cath placed during this visit: yes Reason for continuing: Hourly intake/output Insertion date: 12/07/18 Insertion time: 07:27 Condom Cath placed during this visit: no Objective Laboratory Results - last 24 hr 12/07/18 12/07/18 12/07/18 06:40 06:40 12:06 WBC RBC Hgb Hct MCV MCH MCHC RDW Plt Count MPV Neut % (Auto) Lymph % (Auto) Motley % (Auto) Eos % (Auto) Baso % (Auto) Neut # (Auto) Lymph # (Auto) [place]ley # (Auto) Eos # (Auto) Baso # (Auto) WBC Differential Differential Comment Puncture Site Patient Temperature O2 Saturation ABG pH ABG pCO2 ABG pO2 ABG HCO3 ABG O2 Content ABG Base Excess ABG Methemoglobin Sergio Test Hemoglobin Carboxyhemoglobin O2 Delivery Device Vent Setting Inspired O2 Critical Value Sodium Potassium Chloride Carbon Dioxide Anion Gap BUN Creatinine Estimated GFR POC Glucose 177 H Random Glucose Hemoglobin A1c 8.9 H Calcium Phosphorus Magnesium Triglycerides 111 Cholesterol 174 LDL Cholesterol, Calc 104 H HDL Cholesterol 48.0 Cholesterol/HDL Ratio 3.62 Urine Color Urine Clarity Urine pH Ur Specific [place] Urine Protein Urine Glucose (UA) Urine Ketones Urine Occult Blood Urine Nitrate Urine Bilirubin Urine Urobilinogen Ur Leukocyte Esterase Urine RBC Urine WBC Urine Bacteria Micro UA Comment Ur Microscopic Review Urine Culture Comments Nasal Screen MRSA (PCR) Urine Opiates Screen Ur Barbiturates Screen Ur Amphetamines Screen U Benzodiazepines Scrn Urine Cocaine Screen U Cannabinoids Screen 12/07/18 12/07/18 12/07/18 13:00 13:00 13:06 WBC RBC Hgb Hct MCV MCH MCHC RDW Plt Count MPV Neut % (Auto) Lymph % (Auto) Motley % (Auto) Eos % (Auto) Baso % (Auto) Neut # (Auto) Lymph # (Auto) [place]ley # (Auto) Eos # (Auto) Baso # (Auto) WBC Differential Differential Comment Puncture Site Patient Temperature O2 Saturation ABG pH ABG pCO2 ABG pO2 ABG HCO3 ABG O2 Content ABG Base Excess ABG Methemoglobin Sergio Test Hemoglobin Carboxyhemoglobin O2 Delivery Device Vent Setting Inspired O2 Critical Value Sodium Potassium Chloride Carbon Dioxide Anion Gap BUN Creatinine Estimated GFR POC Glucose Random Glucose Hemoglobin A1c Calcium Phosphorus Magnesium Triglycerides Cholesterol LDL Cholesterol, Calc HDL Cholesterol Cholesterol/HDL Ratio Urine Color Whit Urine Clarity Clear Urine pH 6.0 Ur Specific [place] Greater than 1.060 H Urine Protein 100 H Urine Glucose (UA) 50 Urine Ketones Negative Urine Occult Blood Large H Urine Nitrate Negative Urine Bilirubin Negative Urine Urobilinogen 4 or greater Ur Leukocyte Esterase Trace H Urine RBC Urine WBC 6 H Urine Bacteria Rare H Micro UA Comment Cath-culture ind Ur Microscopic Review Not Reportable Urine Culture Comments Cath-cult indicated Nasal Screen MRSA (PCR) Not detected Urine Opiates Screen Neg Ur Barbiturates Screen Neg Ur Amphetamines Screen Neg U Benzodiazepines Scrn Neg Urine Cocaine Screen Neg U Cannabinoids Screen Pos H 12/07/18 12/07/18 12/08/18 17:19 21:09 00:57 WBC RBC Hgb Hct MCV MCH MCHC RDW Plt Count MPV Neut % (Auto) Lymph % (Auto) Motley % (Auto) Eos % (Auto) Baso % (Auto) Neut # (Auto) Lymph # (Auto) [place] # (Auto) Eos # (Auto) Baso # (Auto) WBC Differential Differential Comment Puncture Site Right radial Patient Temperature 98.6 O2 Saturation 96 ABG pH 7.53 H* ABG pCO2 33 L ABG pO2 100 ABG HCO3 28 H ABG O2 Content 19.5 ABG Base Excess 4.6 H ABG Methemoglobin 1.2 Sergio Test Present Hemoglobin 14.4 Carboxyhemoglobin 1.4 O2 Delivery Device Ventilator Vent Setting 16/500/peep5/it1.0 Inspired O2 50 Critical Value Yes Sodium Potassium Chloride Carbon Dioxide Anion Gap BUN Creatinine Estimated GFR POC Glucose 169 H 135 H Random Glucose Hemoglobin A1c Calcium Phosphorus Magnesium Triglycerides Cholesterol LDL Cholesterol, Calc HDL Cholesterol Cholesterol/HDL Ratio Urine Color Urine Clarity Urine pH Ur Specific [place] Urine Protein Urine Glucose (UA) Urine Ketones Urine Occult Blood Urine Nitrate Urine Bilirubin Urine Urobilinogen Ur Leukocyte Esterase Urine RBC Urine WBC Urine Bacteria Micro UA Comment Ur Microscopic Review Urine Culture Comments Nasal Screen MRSA (PCR) Urine Opiates Screen Ur Barbiturates Screen Ur Amphetamines Screen U Benzodiazepines Scrn Urine Cocaine Screen U Cannabinoids Screen 12/08/18 12/08/18 05:27 05:27 WBC 14.9 H RBC 4.60 Hgb 13.6 D Hct 41.4 MCV 90.1 MCH 29.5 MCHC 32.8 RDW 14.7 Plt Count 205 MPV 9.1 Neut % (Auto) 71.5 H Lymph % (Auto) 15.2 Motley % (Auto) 11.8 H Eos % (Auto) 0.8 Baso % (Auto) 0.7 Neut # (Auto) 10.7 H Lymph # (Auto) 2.3 Motley # (Auto) 1.8 H Eos # (Auto) 0.1 Baso # (Auto) 0.1 WBC Differential . Differential Comment Auto diff final Puncture Site Patient Temperature O2 Saturation ABG pH ABG pCO2 ABG pO2 ABG HCO3 ABG O2 Content ABG Base Excess ABG Methemoglobin Sergio Test Hemoglobin Carboxyhemoglobin O2 Delivery Device Vent Setting Inspired O2 Critical Value Sodium 143 Potassium 3.0 L Chloride 107 Carbon Dioxide 26.7 Anion Gap 9 BUN 16 Creatinine 0.69 Estimated GFR Greater than 89 POC Glucose Random Glucose 159 H Hemoglobin A1c Calcium 7.5 L Phosphorus 2.6 Magnesium 1.8 Triglycerides Cholesterol LDL Cholesterol, Calc HDL Cholesterol Cholesterol/HDL Ratio Urine Color Urine Clarity Urine pH Ur Specific [place] Urine Protein Urine Glucose (UA) Urine Ketones Urine Occult Blood Urine Nitrate Urine Bilirubin Urine Urobilinogen Ur Leukocyte Esterase Urine RBC Urine WBC Urine Bacteria Micro UA Comment Ur Microscopic Review Urine Culture Comments Nasal Screen MRSA (PCR) Urine Opiates Screen Ur Barbiturates Screen Ur Amphetamines Screen U Benzodiazepines Scrn Urine Cocaine Screen U Cannabinoids Screen Review/Management - Diagnosis (1) Acute ischemic left MCA stroke Code(s): I63.512 - Cerebral infarction due to unspecified occlusion or stenosis of left middle cerebral artery Status: Acute Current Visit: Yes (2) Left carotid artery occlusion Code(s): I65.22 - Occlusion and stenosis of left carotid artery Status: Acute Current Visit: Yes (3) Stroke Code(s): I63.9 - Cerebral infarction, unspecified Status: Acute Current Visit: Yes (4) Leukocytosis Code(s): D72.829 - Elevated white blood cell count, unspecified Status: Acute Current Visit: Yes (5) Pneumonia Code(s): J18.9 - Pneumonia, unspecified organism Status: Acute Current Visit : Yes (6) GI bleed Code(s): K92.2 - Gastrointestinal hemorrhage, unspecified Status: Acute Current Visit: Yes (7) Respiratory failure Code(s): J96.90 - Respiratory failure, unspecified, unspecified whether with hypoxia or hypercapnia Status: Acute Current Visit: Yes - Review/Management Plan: Status post left carotid stent placement, mechanical thromboembolectomy Etiology would include aortic arch athero emboli, versus A. fib MRI brain scan reviewed moderate left MCA territory strokes 2D echo showing EF proximal 45% with mild pericardial effusion Recommendation Start aspirin through the nasogastric tube Statin Extubation per critical care Discussed with RN Follow exam (3) Stroke Qualifiers: CVA mechanism: occlusion Precerebral and cerebral artery: middle cerebral artery Laterality of affected vessel: left Qualified Code(s): I63.512 - Cerebral infarction due to unspecified occlusion or stenosis of left middle cerebral artery (4) Leukocytosis Qualifiers: Leukocytosis type: unspecified Qualified Code(s): D72.829 - Elevated white blood cell count, unspecified (5) Pneumonia Qualifiers: Pneumonia type: due to unspecified organism Laterality: left Lung location: lower lobe of lung Qualified Code(s): J18.1 - Lobar pneumonia, unspecified organism (6) GI bleed Qualifiers: GI bleed type/associated pathology: unspecified gastrointestinal hemorrhage type Qualified Code(s): K92.2 - Gastrointestinal hemorrhage, unspecified (7) Respiratory failure Qualifiers: Chronicity: acute Respiratory failure complication: unspecified whether with hypoxia or hypercapnia Qualified Code(s): J96.00 - Acute respiratory failure, unspecified whether with hypoxia or hypercapnia
[2018-12-08] MEDS: Senna/Docusate Sodium 8.6/50 MG Tablet PO SCH ×2 (10:07→21:56)
[2018-12-08] MEDS: Famotidine PF Inj 20 MG/2 ML Vial IV.PUSH SCH ×2 (10:07→21:47)
[2018-12-08] MEDS: Aspirin 325 MG Tablet PO SCH (10:07)
[2018-12-08] MEDS: Polyethylene Glycol 3350 17 GM Packet PO SCH ×2 (10:07→21:46)
--- NOTE | 2018-12-08 12:49 | IR ---
EXAM DATE: 12/07/2018 10:20 AM EST AGE/SEX: 73 years / Male INDICATIONS: 73-year-old male with history of left hemispheric anterior circulation stroke, time of o nset of unknown but likely between 6 and 8 hours ago. Patient's NIH is greater than 12 and patient perez d to be intubated in the emergency room due to respiratory distress. Rapid scan demonstrates a sizabl e left hemispheric penumbra with a smaller central core. On CT angiography the left internal carotid artery appears occluded although the left cerebral branches appear patent. Patient presents for cereb ral angiography and possible intervention given severity of her stroke symptoms. CLINICAL DATA: This is the patient's initial encounter. Patient reports that signs and symptoms have been present for 1 day and indicates a pain score of Nonresponsive. MEDICAL/SURGICAL HISTORY: . HTN, Tobacco use, CVD, HTN, Dyslipidemia. None. Unobtainable. COMPARISON: [facility] [place], CT CEREBRAL PERF W CONTRAST W 3D, 12/07/2018. . FLUORO TIME (min): 22.1 IMAGE SERIES: 21 RADIATION DOSE: 219.4 mGy CAK ACCESS SITE: Right femoral artery CONTRAST (cc): 80 cc Visipaque (iodixanol) Anesthesia and pain control was provided by the Anesthesia department. DEVICE(S): Left internal carotid artery stent (self expanding) 8/6 x 40 120cm Left internal carotid artery stent (self expanding) 6 x 40 120cm Right common femoral artery Angio-Seal 8fr Right Syvek pad Right groin 5 mm embolic protection device TIMELINE: Interventional Team Called: 07:26 Interentional Team Arrived: 07:26 Interventional Team Ready 07:35 Patient Arrival: 07:45 Groin Puncture: 08:04 Recanalization: 08:55 PROCEDURE : 1. Ultrasound-guided puncture of the access site. 2. Angiography of the access site prior to closure device. 3. Conscious sedation with continuous EKG and Oximetry monitoring. 4. Percutaneous closure of the access site. 5. Left carotid angiography 6. Left cerebral angiography 7. Left carotid suction embolectomy with distal embolic protection device 8. Left carotid stent placement with distal embolic protection device The risks, benefits and alternatives to the procedure were explained and verbal and written consent w as obtained.The site was prepped in sterile fashion. Full sterile technique was used, including cap, mask, sterile gloves and gown and a large sterile sheet. Hand hygiene and 2% chlorhexidine and/or bet adine/alcohol prep was utilized per protocol for cutaneous antisepsis. The skin and subcutaneous tiss ues were infiltrated with local anesthetic solution. Sterile gel and sterile probe cover were utiliz ed for ultrasound guidance. With ultrasound and fluoroscopic guidance the selected artery was punctured and a vascular sheath was placed. Angiography of the common femoral artery was performed for evaluation prior to percutaneous closure device placement. A diagnostic catheter was placed into the left common carotid artery and angiography was performed. T his confirmed occlusion of the internal carotid origin. A Neuron Max sheath was subsequently placed i n the left common carotid artery. A 4 Vietnamese glide catheter was successfully advanced into the distal cervical segment of the left carotid artery. Several large acute appearing thrombus fragments were r emoved through the angiographic catheter. Catheter was subsequently advanced more distally into the v sarika distal cervical segment and angiography was performed. This demonstrated patency of this portion of the internal carotid artery and patency of the anterior circulation vessels. Next, a 5 mm embolic protection device was deployed in the distal left internal carotid artery. An 8/6 x 40 mm stent was s ubsequently deployed across the origin of the internal carotid artery. Follow-up angiography demonstr ated thrombus proximal to the suction embolic protection device. Therefore, a CAT 7 suction colectomy catheter was advanced through the internal carotid artery and several large fragments of thrombus we re removed. The distal protection device was subsequently retrieved. Follow-up angiography demonstrat ed near complete resolution of thrombus with a single partially trapped thrombus near the distal sten t. The suction catheter was subsequently advanced into this region and despite several attempts the t hrombus could not be retrieved. Therefore, decision was made to extend the stent beyond this thrombus . This was accomplished with an additional 6 x 40 mm self-expanding stent. Follow-up angiography demo nstrated excellent angiographic result with widely patent internal carotid artery. Cerebral angiograp hy subsequently demonstrates TICI 3 flow. Therefore, wires and catheters were removed. Hemostasis was obtained with the prescribed medicated closure device. Conscious sedation was performe d with the prescribed dosages and duration as above. EKG and oximetry remained stable throughout the procedure. The patient was sent to post anesthesia recovery in stable condition. CONCLUSION: 1. Acute occlusion of the left internal carotid artery origin extending to the mid cervical segment with combination of acute thrombus and plaque at the origin. 2. Technically successful suction embolectomy and 6 mm left carotid stent placement, as above. 3. TICI 3 left cerebral flow following carotid stenting. Electronically signed by: Hany Duarte MD Board Certified Radiologist 12/08/2018 12:48 PM ES T
--- NOTE | 2018-12-08 13:17 | P.PNCC ---
Subjective Subjective Remarks/Hospital Course: Hospital Course: 73yM last seen normal reports of 1:30am by notes found written by him presented with acute altered mentation and aphasia. initial NIHSS 11 --> 8, but he clinically decompensated and required intubation for a rapidly declining mental status. CT head negative for acute bleed. CTA head/neck demonstrates acute left ICA occlusion. taken emergently for interventional thrombectomy. arrives from embolectomy intubated, sedated. no additional information available from the patient. ROS unobtainable. Subjective: 12/08: following commands. passing SBT. MRI with left MCA distribution infarct, no hemorrhagic conversion. Objective Vital Signs / I&O: Vital Signs 12/07/18 13:30 12/07/18 14:00 12/07/18 14:15 Temperature Pulse Rate 92 H 90 89 Respiratory Rate Blood Pressure 148/77 H 131/69 Pulse Oximetry 99 98 98 12/07/18 14:30 12/07/18 14:45 12/07/18 15:00 Temperature Pulse Rate 93 H 92 H 90 Respiratory Rate Blood Pressure 155/89 H 138/71 Pulse Oximetry 98 98 97 12/07/18 15:15 12/07/18 15:23 12/07/18 15:30 Temperature Pulse Rate 89 90 89 Respiratory Rate 16 Blood Pressure 144/73 H Pulse Oximetry 97 97 98 12/07/18 15:45 12/07/18 16:00 12/07/18 16:15 Temperature 37.0 C Pulse Rate 93 H 96 H 94 H Respiratory Rate Blood Pressure 131/61 Pulse Oximetry 99 96 96 12/07/18 16:30 12/07/18 16:45 12/07/18 17:00 Temperature Pulse Rate 92 H 92 H 95 H Respiratory Rate Blood Pressure 131/65 159/74 H Pulse Oximetry 96 96 97 12/07/18 17:15 12/07/18 17:30 12/07/18 17:45 Temperature Pulse Rate 92 H 91 H 92 H Respiratory Rate Blood Pressure 142/72 H Pulse Oximetry 96 96 96 12/07/18 18:00 12/07/18 18:30 12/07/18 19:00 Temperature Pulse Rate 92 H 90 93 H Respiratory Rate 16 16 16 Blood Pressure 142/71 H 138/71 149/77 H Pulse Oximetry 96 96 96 12/07/18 19:30 12/07/18 20:00 12/07/18 20:09 Temperature 37.8 C H Pulse Rate 94 H 87 90 Respiratory Rate 16 16 17 Blood Pressure 145/72 H 143/72 H Pulse Oximetry 96 96 12/07/18 20:30 12/07/18 21:00 12/07/18 21:30 Temperature Pulse Rate 89 88 87 Respiratory Rate 16 16 16 Blood Pressure 159/80 H 163/87 H Pulse Oximetry 97 98 98 12/07/18 22:00 12/07/18 22:21 12/07/18 22:30 Temperature Pulse Rate 87 87 88 Respiratory Rate 16 16 16 Blood Pressure Pulse Oximetry 98 98 98 12/07/18 22:57 12/07/18 23:00 12/07/18 23:15 Temperature Pulse Rate 89 88 92 H Respiratory Rate 16 16 Blood Pressure 168/86 H 165/87 H 130/66 Pulse Oximetry 97 97 96 12/07/18 23:30 12/07/18 23:34 12/07/18 23:45 Temperature Pulse Rate 92 H 92 H 92 H Respiratory Rate 16 14 Blood Pressure 130/66 Pulse Oximetry 95 95 97 12/08/18 00:00 12/08/18 00:15 12/08/18 00:30 Temperature 38.2 C H Pulse Rate 91 H 90 89 Respiratory Rate 16 16 Blood Pressure 151/73 H 151/76 H Pulse Oximetry 96 97 97 12/08/18 00:45 12/08/18 01:00 12/08/18 01:15 Temperature Pulse Rate 87 92 H 92 H Respiratory Rate 16 16 Blood Pressure 149/74 H Pulse Oximetry 97 96 95 12/08/18 01:30 12/08/18 01:51 12/08/18 02:00 Temperature 37.3 C Pulse Rate 93 H 90 88 Respiratory Rate 16 14 Blood Pressure 147/77 H 136/69 Pulse Oximetry 94 L 95 12/08/18 02:30 12/08/18 03:00 12/08/18 03:29 Temperature Pulse Rate 86 94 H 87 Respiratory Rate 14 Blood Pressure 145/70 H 163/86 H Pulse Oximetry 96 96 12/08/18 03:30 12/08/18 03:34 12/08/18 04:00 Temperature 37.3 C Pulse Rate 92 H 87 Respiratory Rate 14 Blood Pressure 161/83 H 139/73 Pulse Oximetry 98 96 96 12/08/18 04:25 12/08/18 05:00 12/08/18 05:30 Temperature Pulse Rate 85 78 Respiratory Rate Blood Pressure 118/59 L 146/72 H Pulse Oximetry 100 95 97 12/08/18 06:00 12/08/18 07:00 12/08/18 07:15 Temperature Pulse Rate 80 90 87 Respiratory Rate 15 Blood Pressure Pulse Oximetry 97 96 96 12/08/18 07:30 12/08/18 07:44 12/08/18 07:45 Temperature Pulse Rate 86 91 H 89 Respiratory Rate 15 Blood Pressure Pulse Oximetry 97 97 96 12/08/18 07:57 12/08/18 08:00 12/08/18 08:15 Temperature 37.6 C Pulse Rate 88 86 87 Respiratory Rate 14 14 14 Blood Pressure Pulse Oximetry 97 100 97 12/08/18 08:30 12/08/18 08:45 12/08/18 09:00 Temperature Pulse Rate 88 96 H 94 H Respiratory Rate Blood Pressure Pulse Oximetry 100 12/08/18 09:04 12/08/18 09:15 12/08/18 09:30 Temperature Pulse Rate 97 H 103 H Respiratory Rate 14 21 Blood Pressure Pulse Oximetry 97 100 12/08/18 09:45 12/08/18 10:00 12/08/18 10:15 Temperature Pulse Rate 94 H 91 H 88 Respiratory Rate 21 22 Blood Pressure Pulse Oximetry 94 L 93 L 93 L 12/08/18 10:30 12/08/18 10:45 12/08/18 11:00 Temperature Pulse Rate 84 100 H 91 H Respiratory Rate 22 22 Blood Pressure Pulse Oximetry 95 98 94 L 12/08/18 11:15 12/08/18 11:30 12/08/18 11:45 Temperature Pulse Rate 87 87 87 Respiratory Rate 22 22 20 Blood Pressure Pulse Oximetry 93 L 94 L 95 12/08/18 12:00 12/08/18 12:13 12/08/18 12:15 Temperature 37.1 C Pulse Rate 105 H 108 H Respiratory Rate 18 18 Blood Pressure Pulse Oximetry 98 97 97 12/08/18 12:30 12/08/18 12:49 Temperature Pulse Rate 96 H 90 Respiratory Rate 18 20 Blood Pressure Pulse Oximetry 93 L Intake & Output 12/07/18 12/08/18 12/08/18 18:59 06:59 18:59 Intake Total 100 / 100 1135 / 1135 200 / 200 Output Total 200 / 200 Balance 100 / 100 935 / 935 200 / 200 Weight 79.4 kg 81.2 kg Intake: IV 100 / 100 1135 / 1135 200 / 200 Diprivan 1000 mg/100 ml Inj 1, 100 / 100 100 / 100 000 mg In 100 ml @ 5 MCG/KG/MIN 2.34 mls/hr IV.CONT TITRATE PRN Rx#:[id number] NS Inj 1,000 ML @ 70 mls/hr IV. 1000 / 1000 CONT .[id number] LA Rx#:[id number] KCl 20 mEq Premix Inj 20 meq In 200 / 200 100 ml @ 50 mls/hr IV.SIG Q2H PRN Rx#:[id number] Output: Urine Amount (Catheter) 150 / 150 Condom 150 / 150 Gastric Drainage 50 / 50 Orogastric Tube 50 / 50 Other: Weight On Admission 79.4 kg Result Diagrams: 12/08/18 05:27 12/08/18 05:27 Objective Remarks: GENERAL: Elderly male, lying in bed, intubated, sedated, critically ill HEENT: Normocephalic. Atraumatic. Pupils equal, round, reactive, conjugate. Mucous membranes are moist NECK: Trachea is midline. There is no JVD. CHEST: Equal chest rise. PSV 5/5/45% CARDIOVASCULAR: Normal rate, regular rhythm. sinus. ABDOMEN: Soft, nontender, nondistended. No guarding. MUSCULOSKELETAL: Pulses 2+. No peripheral edema. NEUROLOGICAL: RASS -2. Follows commands x 4. Assessment and Plan - Assessment and Plan Plan: Assessment: 73yM with acute left ICA occlusion and new acute CVA complicated by respiratory failure. clinically beginning to improve. high risk for recurrent respiratory failure given large MCA territory stroke. I have consented the family for the risk of reintubation and pneumonia/aspiration associated with trial of extubation, but he has passed his SBT so we will proceed with extubation. Acute CVA acute left ICA occlusion Acute encephalopathy - s/p mechanical thrombectomy 12/07 in IR, successful - repeat head CT in AM - frequent neuro checks - PT/OT/ST - ASA today - DVT prophylaxis today - neurology consult - lipids, a1c - statin if indicated - 2d echo - keep sbp 140 - 160 mmHg. - phenylephrine to keep appropriate cerebral perfusion Acute hypoxic and hypercarbic respiratory failure- improving - vent bundle - hob elevated - nebs - wean to extubate - aggressive pulmonary toilet - wean fio2 for goal spo2 > 90%
[2018-12-08] MEDS: Heparin - SQ 10,000 UNITS/ML Vial SQ SCH ×2 (14:28→21:47)
[2018-12-08] MEDS: Sod Chloride 0.9% Inj 1,000 ML IV.CONT SCH (14:29)
[2018-12-08] MEDS: Labetalol HCl Inj 20 MG/4 ML Vial IV.PUSH PRN (16:32)
[2018-12-09] MEDS: Insulin NovoLIN Regular Correctional Sugar Inj SQ SCH ×4 (01:58→17:14)
[2018-12-09] MEDS: Oral Hygiene Kit OROPHARYNG SCH ×4 (01:59→17:14)
[2018-12-09] MEDS ORDERED: Etomidate Inj 40 MG/20 ML Vial IV.PUSH ONE (02:25)
[2018-12-09] MEDS ORDERED: Propofol Inj 500 MG/50 ML Vial ONE (02:40)
[2018-12-09] MEDS ORDERED: Succinylcholine Inj 200 MG/10 ML Vial IV.PUSH ONE (03:15)
[2018-12-09] MEDS ORDERED: Etomidate Inj 20 MG/10 ML Ampul IV.PUSH ONE (03:15)
--- NOTE | 2018-12-09 03:24 | XR ---
EXAM DATE: 12/09/2018 3:17 AM EST AGE/SEX: 73 years / Male INDICATIONS: Status post ET tube placement. CLINICAL DATA: This is the patient's subsequent encounter. Patient reports that signs and symptoms h ave been present for 3 days and indicates a pain score of Nonresponsive. MEDICAL/SURGICAL HISTORY: . Pancreatitis. Heart disease. High cholesterol. HTN. . Splenectomy. COMPARISON: C, CHEST 1V SINGLE AP, 12/08/2018. . FINDINGS: Endotracheal tube is present with tip 4 cm above the ventura. Nasogastric tube descends into the stoma ch. There is persistent left base consolidation and effusion which is slightly increased. Minimal ate lectasis in the right base. Cardiac contours are stable. CONCLUSION: Slight interval worsening in aeration. Electronically signed by: Nadeem Moon MD Board Certified Radiologist 12/09/2018 3:23 AM EST
--- NOTE | 2018-12-09 03:24 | P.PCN ---
Date of procedure: 12/09/18 Pre-op diagnosis: Acute CVA Post-op diagnosis: same Procedure: Endotracheal Intubation Called to the bedside by nurse. The patient in respiratory distress, 15 L facemask with saturation of 89. Progressively worsening through the night. No gag no cough barely responsive to sternal rub stimuli, unable to protect an airway. A time-out was completed verifying correct patient, procedure, site, positioning , and special equipment if applicable. The patient was placed in a flat position. Sedation was obtained using Etomidate 20mg. The patient was easily ventilated using an ambu bag. The [employer]/ MAC 4 BLADE was used and inserted into the oropharynx at which time there was a Grade 1 view of the vocal cords. A 8-malay endotracheal tube was inserted and visualized going through the vocal cords. The stylette was removed. Colorimetric change was visualized on the CO2 meter. Breath sounds were heard in both lung carl equally. The endotracheal tube was placed at 23 cm, measured at the teeth. A chest x-ray was ordered to assess for pneumothorax and verify endotrachealtube placement. Estimated Blood Loss: 0 The patient tolerated the procedure well and there were no complications.
[2018-12-09 03:44] LABS: ABG Base Excess -0.4 mmol/L (-2-2); ABG PCO2 28 mmHg (38-42); ABG PO2 63 mmHg (61-120)
[2018-12-09] MEDS: Sod Chloride 0.9% Inj 1,000 ML IV.CONT SCH ×2 (05:47→21:44)
[2018-12-09] MEDS: Chlorhexidine Gluconate 2% 1 Pack (2 Cloths) TOPICAL SCH (05:48)
[2018-12-09] MEDS: Heparin - SQ 10,000 UNITS/ML Vial SQ SCH ×3 (05:49→21:47)
--- NOTE | 2018-12-09 05:52 | P.PNCC ---
Subjective Subjective Remarks/Hospital Course: Hospital Course: 73yM last seen normal reports of 1:30am by notes found written by him presented with acute altered mentation and aphasia. initial NIHSS 11 --> 8, but he clinically decompensated and required intubation for a rapidly declining mental status. CT head negative for acute bleed. CTA head/neck demonstrates acute left ICA occlusion. taken emergently for interventional thrombectomy. arrives from embolectomy intubated, sedated. no additional information available from the patient. ROS unobtainable. Subjective: 12/08: following commands. passing SBT. MRI with left MCA distribution infarct, no hemorrhagic conversion. 12/09: reintubated overnight for respiratory failure. now has LLL consolidation, likely aspiration related. repeat head CT shows evolving stroke, no new hemorrhage. Objective Vital Signs / I&O: Vital Signs 12/08/18 06:00 12/08/18 07:00 12/08/18 07:15 Temperature Pulse Rate 80 90 87 Respiratory Rate 15 Pulse Oximetry 97 96 96 12/08/18 07:30 12/08/18 07:44 12/08/18 07:45 Temperature Pulse Rate 86 91 H 89 Respiratory Rate 15 Pulse Oximetry 97 97 96 12/08/18 07:57 12/08/18 08:00 12/08/18 08:15 Temperature 37.6 C Pulse Rate 88 86 87 Respiratory Rate 14 14 14 Pulse Oximetry 97 100 97 12/08/18 08:30 12/08/18 08:45 12/08/18 09:00 Temperature Pulse Rate 88 96 H 94 H Respiratory Rate Pulse Oximetry 100 12/08/18 09:04 12/08/18 09:15 12/08/18 09:30 Temperature Pulse Rate 97 H 103 H Respiratory Rate 14 21 Pulse Oximetry 97 100 12/08/18 09:45 12/08/18 10:00 12/08/18 10:15 Temperature Pulse Rate 94 H 91 H 88 Respiratory Rate 21 22 Pulse Oximetry 94 L 93 L 93 L 12/08/18 10:30 12/08/18 10:45 12/08/18 11:00 Temperature Pulse Rate 84 100 H 91 H Respiratory Rate 22 22 Pulse Oximetry 95 98 94 L 12/08/18 11:15 12/08/18 11:30 12/08/18 11:45 Temperature Pulse Rate 87 87 87 Respiratory Rate 22 22 20 Pulse Oximetry 93 L 94 L 95 12/08/18 12:00 12/08/18 12:13 12/08/18 12:15 Temperature 37.1 C Pulse Rate 105 H 108 H Respiratory Rate 18 18 Pulse Oximetry 98 97 97 12/08/18 12:30 12/08/18 12:45 12/08/18 12:49 Temperature Pulse Rate 96 H 93 H 90 Respiratory Rate 18 18 20 Pulse Oximetry 93 L 95 12/08/18 13:00 12/08/18 13:15 12/08/18 14:00 Temperature Pulse Rate 90 106 H 97 H Respiratory Rate 18 20 22 Pulse Oximetry 96 91 L 97 12/08/18 14:30 12/08/18 15:00 12/08/18 15:15 Temperature Pulse Rate 95 H 99 H 93 H Respiratory Rate 22 22 22 Pulse Oximetry 97 93 L 95 12/08/18 15:25 12/08/18 15:30 12/08/18 15:45 Temperature Pulse Rate 96 H 101 H 99 H Respiratory Rate 16 22 24 Pulse Oximetry 94 L 92 L 12/08/18 16:00 12/08/18 16:15 12/08/18 16:30 Temperature Pulse Rate 105 H 103 H 92 H Respiratory Rate 22 22 22 Pulse Oximetry 91 L 94 L 95 12/08/18 16:45 12/08/18 17:00 12/08/18 17:15 Temperature Pulse Rate 81 83 80 Respiratory Rate 20 20 20 Pulse Oximetry 95 95 96 12/08/18 17:30 12/08/18 17:45 12/08/18 18:00 Temperature Pulse Rate 80 87 86 Respiratory Rate 25 H 23 22 Pulse Oximetry 97 96 94 L 12/08/18 19:00 12/08/18 19:15 12/08/18 19:17 Temperature Pulse Rate 89 87 87 Respiratory Rate 30 H 31 H 30 H Pulse Oximetry 89 L 90 L 91 L 12/08/18 19:30 12/08/18 19:38 12/08/18 19:45 Temperature Pulse Rate 88 89 Respiratory Rate 29 H 27 H Pulse Oximetry 86 L 91 L 91 L 12/08/18 20:00 12/08/18 20:15 12/08/18 20:30 Temperature 36.8 C Pulse Rate 65 88 88 Respiratory Rate 24 25 H 24 Pulse Oximetry 94 L 95 97 12/08/18 20:45 12/08/18 21:00 12/08/18 21:15 Temperature Pulse Rate 86 92 H 93 H Respiratory Rate 26 H 24 23 Pulse Oximetry 98 99 94 L 12/08/18 21:30 12/08/18 21:45 12/08/18 22:00 Temperature Pulse Rate 94 H 101 H 89 Respiratory Rate 22 73 H 113 H Pulse Oximetry 94 L 90 L 96 12/08/18 22:15 12/08/18 22:30 12/08/18 22:45 Temperature Pulse Rate 90 98 H 103 H Respiratory Rate 27 H 23 27 H Pulse Oximetry 97 94 L 90 L 12/08/18 23:00 12/08/18 23:15 12/08/18 23:27 Temperature Pulse Rate 94 H 97 H 97 H Respiratory Rate 28 H 30 H 28 H Pulse Oximetry 95 95 12/08/18 23:30 12/08/18 23:45 12/09/18 00:00 Temperature 37.1 C Pulse Rate 100 H 99 H 101 H Respiratory Rate 23 24 25 H Pulse Oximetry 94 L 93 L 94 L 12/09/18 00:15 12/09/18 00:30 12/09/18 00:45 Temperature Pulse Rate 101 H 101 H 103 H Respiratory Rate 23 122 H 102 H Pulse Oximetry 93 L 94 L 92 L 12/09/18 01:00 12/09/18 01:15 12/09/18 01:30 Temperature Pulse Rate 101 H 109 H 106 H Respiratory Rate 108 H 111 H 107 H Pulse Oximetry 93 L 88 L 88 L 12/09/18 01:45 12/09/18 02:00 12/09/18 02:15 Temperature Pulse Rate 110 H 105 H 106 H Respiratory Rate 99 H 107 H 94 H Pulse Oximetry 87 L 91 L 91 L 12/09/18 02:30 12/09/18 02:45 12/09/18 03:00 Temperature Pulse Rate 104 H 108 H 107 H Respiratory Rate 107 H 65 H 39 H Pulse Oximetry 91 L 97 95 12/09/18 03:15 12/09/18 03:30 12/09/18 03:51 Temperature Pulse Rate 107 H 102 H 96 H Respiratory Rate 51 H 25 H 24 Pulse Oximetry 87 L 93 L 97 Intake & Output 02/13/19 02/13/19 02/14/19 06:59 18:59 06:59 Intake Total 1135 / 1135 1808 / 1808 Output Total 200 / 200 400 / 400 Balance 935 / 935 1408 / 1408 Weight 81.2 kg Intake: IV 1135 / 1135 1658 / 1658 Diprivan 1000 mg/100 ml Inj 1, 100 / 100 000 mg In 100 ml @ 5 MCG/KG/MIN 2.34 mls/hr IV.CONT TITRATE PRN Rx#:[id number] NS Inj 1,000 ML @ 70 mls/hr IV. 1000 / 1000 1322 / 1322 CONT .[id number] [place] Rx#:[id number] Cardene Inj 25 MG In NS Inj 240 136 / 136 ML @ 5 MG/HR 50 mls/hr IV.CONT TITRATE PRN Rx#:[id number] KCl 20 mEq Premix Inj 20 meq In 200 / 200 100 ml @ 50 mls/hr IV.SIG Q2H PRN Rx#:[id number] Water Bolus Amount 150 / 150 Output: Urine Amount (Catheter) 150 / 150 400 / 400 Condom 150 / 150 400 / 400 Gastric Drainage 50 / 50 0 / 0 Orogastric Tube 50 / 50 0 / 0 Other: # Bowel Movements 0 Result Diagrams: 12/09/18 06:05 12/09/18 06:05 Objective Remarks: GENERAL: Elderly male, lying in bed, intubated, sedated, critically ill HEENT: Normocephalic. Atraumatic. Pupils equal, round, reactive, conjugate. Mucous membranes are moist NECK: Trachea is midline. There is no JVD. CHEST: Equal chest rise. PRVC. fio2 40%. CARDIOVASCULAR: Normal rate, regular rhythm. sinus. ABDOMEN: Soft, nontender, nondistended. No guarding. MUSCULOSKELETAL: Pulses 2+. No peripheral edema. NEUROLOGICAL: RASS -4. withdraws x 4. does not follow commands. Assessment and Plan - Assessment and Plan Plan: Assessment: 73yM with acute left ICA occlusion and new acute CVA complicated by respiratory failure. recurrent respiratory failure likeyl secondary to CVA, hypopharyngeal dysfunction, dysphagia/dysarthria. Unclear if he will require tracheostomy for further progress. would likely need to have at least a few more days for evolving stroke and edema to improve and then trial additional extubation, and if fails, will need trach to further progress his care. critically ill with recurrent respiratory failure and now aspiration pneumonia by CXR. will also add empiric abx. Acute CVA acute left ICA occlusion Acute encephalopathy - s/p mechanical thrombectomy 12/07 in IR, successful - repeat head CT in AM - frequent neuro checks - PT/OT/ST - ASA - DVT prophylaxis - neurology consult - lipids, a1c - statin - 2d echo: EF 45% - keep sbp 140 - 160 mmHg. - phenylephrine to keep appropriate cerebral perfusion Acute hypoxic and hypercarbic respiratory failure- recurrent - vent bundle - hob elevated - nebs - aggressive pulmonary toilet - wean fio2 for goal spo2 > 90% - extubated 12/08, reintubated 12/09 for respiratory failure, inability to manage secretions - will give a few additional days for cerebral edema to resolve and attempt second trial of extubation, but if he fails again, will require tracheostomy to progress care. Aspiration pneumonia - has been inpatient < 72h and at home prior - low suspicion for resistant bacteria - start Unasyn 3gm iv q6h - sputum culture dispo: remain in ICU. critically ill with new aspiration pneumonia, recurrent respiratory failure, inability to remain off life support. Critical care time: 36 minutes, exclusive of separately billable procedures.
[2018-12-09 06:50] LABS: Baso # (Auto) 0.1 th/mm3 (0.0-0.2); Baso % (Auto) 0.8 % (0.0-2.0); Eos # (Auto) 0.1 th/mm3 (0.0-0.4); Eos % (Auto) 0.7 % (0.0-4.0); Hematocrit 39.9 % (39.0-51.0); Hemoglobin 13.6 gm/dL (13.0-17.0); Lymph % (Auto) 12.3 % (9.0-44.0); Mean Corpuscular HGB Conc 34.1 % (32.0-36.0); Mean Corpuscular Hemoglobin 30.7 pg (27.0-34.0); Mono # (Auto) 1.7 th/mm3 (0.0-0.9); Neut # (Auto) 12.6 th/mm3 (1.8-7.7); Neut % (Auto) 76.2 % (16.0-70.0); Platelet Count 199 th/mm3 (150-450); Red Blood Count 4.44 mil/mm3 (4.50-5.90); Red Cell Distribution Width 14.8 % (11.6-17.2); White Blood Count 16.6 th/mm3 (4.0-11.0)
[2018-12-09 07:06] LABS: Anion Gap 10 meq/L (5-15); Blood Urea Nitrogen 14 mg/dL (7-18); Calcium 7.6 mg/dL (8.5-10.1); Carbon Dioxide 21.8 meq/L (21.0-32.0); Chloride 109 meq/L (98-107); Glomerular Filtration Rate Greater Than 89 mL/min (>89); Glucose,Random 148 mg/dL (74-106); Magnesium 1.8 mg/dL (1.5-2.5); Potassium 3.6 meq/L (3.5-5.1); Sodium 141 meq/L (136-145)
[2018-12-09 07:13] LABS: Phosphorus 1.5 mg/dL (2.5-4.9)
[2018-12-09] MEDS: Aspirin 325 MG Tablet PO SCH (08:20)
[2018-12-09] MEDS: Senna/Docusate Sodium 8.6/50 MG Tablet PO SCH ×2 (08:20→21:46)
[2018-12-09] MEDS: Famotidine PF Inj 20 MG/2 ML Vial IV.PUSH SCH ×2 (08:20→21:46)
[2018-12-09] MEDS: Chlorhexidine 0.12% Oral Kit 15 ML UDC OROPHARYNG SCH ×2 (08:21→21:46)
[2018-12-09] MEDS: Polyethylene Glycol 3350 17 GM Packet PO SCH ×2 (08:21→22:38)
--- NOTE | 2018-12-09 08:56 | P.PNNEU ---
Subjective Subjective Comments: No acute events Active Medications: Active Medications Acetaminophen (Tylenol) 650 mg PO Q6H PRN PRN Reason: TEMPERATURE > 101 F Albuterol (Duoneb Neb (Prn)) 1 ampul NEB Q2HR NEB PRN PRN Reason: SHORTNESS OF BREATH Albuterol (Duoneb Neb (Braulio)) 1 ampul NEB Q4HR NEB [facility] Last Admin: 12/09/18 07:53 Dose: 1 ampul Aspirin (Aspirin) 325 mg PO DAILY [facility] Last Admin: 12/09/18 08:20 Dose: 325 mg Atorvastatin Calcium (Lipitor) 80 mg PO DAILY [facility] Last Admin: 12/09/18 08:20 Dose: 80 mg Bisacodyl (Dulcolax Supp) 10 mg RECTAL DAILY PRN PRN Reason: if no BM in last 24h Chlorhexidine Gluconate (Peridex 0.12% Oral Kit) 15 ml OROPHARYNG BID@0800, 2000 [facility] Last Admin: 12/09/18 08:21 Dose: 15 ml Chlorhexidine Gluconate (Chlorhexidine 2% Cloth) 3 pack TOPICAL DAILY@0400 [facility] Stop: 12/13/18 03:59 Last Admin: 12/09/18 05:48 Dose: 3 pack Chlorhexidine Gluconate (Chlorhexidine 2% Cloth) 3 pack TOPICAL DAILY@0400 PRN PRN Reason: Extra cloth needed Stop: 12/13/18 03:59 Dextrose (D50w Vial) 50 ml IV.PUSH UNSCH PRN PRN Reason: PER HYPOGLYCEMIA PROTOCOL Famotidine (Pepcid Pf Inj) 20 mg IV.PUSH Q12HR [facility] Last Admin: 12/09/18 08:20 Dose: 20 mg Glucagon (Glucagon Inj) 1 mg OTHER PRN PRN PRN Reason: for Hypoglycemia Protocol Heparin Sodium (Porcine) (Heparin Inj) 5,000 units SQ Q8HR [facility] Last Admin: 12/09/18 05:49 Dose: 5,000 units Hydralazine HCl (Apresoline Inj) 10 mg IV.PUSH Q30M PRN PRN Reason: sbp > 180 Sodium Chloride (Ns Inj) 1,000 mls @ 70 mls/hr IV.CONT .[id number] [facility] Last Admin: 12/09/18 05:47 Dose: 70 mls/hr Pantoprazole Sodium 80 mg/ (Sodium Chloride) 100 mls @ 10 mls/hr IV.CONT CONT BRAULIO Phenylephrine HCl 40 mg/ (Sodium Chloride) 500 mls @ 30 mls/hr IV.CONT TITRATE PRN; Protocol PRN Reason: Per Protocol Last Titration: 12/09/18 08:23 Dose: 0 mcg/min, 0 mls/hr Magnesium Sulfate 4 gm/ Sodium (Chloride) 100 mls @ 50 mls/hr IV.SIG UNSCH PRN PRN Reason: For Magnesium 0.9 - 1.1 mg/dL Magnesium Sulfate 2 gm/ Sodium (Chloride) 100 mls @ 50 mls/hr IV.SIG UNSCH PRN PRN Reason: For Magnesium 1.2 - 1.6 mg/dL Potassium Chloride (Kcl 40 Meq Premix Inj) 40 meq in 100 mls @ 25 mls/hr IV.SIG Q2H PRN PRN Reason: For Potassium 2.8 - 3.2 mEq/L Potassium Chloride (Kcl 20 Meq Premix Inj) 20 meq in 100 mls @ 50 mls/hr IV.SIG Q2H PRN PRN Reason: For Potassium 3.3 - 3.5 mEq/L Potassium Chloride (Kcl 40 Meq Premix Inj) 40 meq in 100 mls @ 25 mls/hr IV.SIG UNSCH PRN PRN Reason: For Potassium 3.3 - 3.5 mEq/L Potassium Chloride (Kcl 20 Meq Premix Inj) 20 meq in 100 mls @ 50 mls/hr IV.SIG Q2H PRN PRN Reason: For Potassium 2.8 - 3.2 mEq/L Last Infusion: 12/08/18 11:09 Dose: Infused Potassium Phosphate 30 mmol/ (Sodium Chloride) 260 mls @ 42 mls/hr IV.SIG UNSCH PRN PRN Reason: SEE LABEL COMMENTS Last Admin: 12/09/18 08:19 Dose: 42 mls/hr Sodium Phosphate 30 mmol/ (Sodium Chloride) 260 mls @ 42 mls/hr IV.SIG UNSCH PRN PRN Reason: For Phosphorus < 2.5 mg/dL Nicardipine HCl 25 mg/ Sodium (Chloride) 250 mls @ 50 mls/hr IV.CONT TITRATE PRN; Protocol PRN Reason: Per Protocol Last Titration: 12/08/18 17:46 Dose: 0 mg/hr, 0 mls/hr Propofol (Diprivan 1000 Mg/100 Ml Inj) 1,000 mg in 100 mls @ 2.436 mls/hr IV.CONT TITRATE PRN; Protocol PRN Reason: Per Protocol Insulin Human Regular (Novolin R Correctional Sugar Inj) 0 units SQ Q6HR [facility]; Protocol Last Admin: 12/09/18 05:52 Dose: Not Given Labetalol HCl (Trandate Inj) 10 mg IV.PUSH Q30M PRN PRN Reason: SYS BP GREATER THAN 180 MMHG Last Admin: 12/08/18 16:32 Dose: 10 mg Lactulose (Lactulose Liq) 30 ml PO BID [facility] Last Admin: 12/09/18 08:20 Dose: 30 ml Magnesium Oxide (Mag-Ox) 800 mg PO UNSCH PRN PRN Reason: For Magnesium 1.2 - 1.6 mg/dL Miscellaneous Medication () 1 each OROPHARYNG 0000,0400,1200,1600 [facility] Last Admin: 12/09/18 05:48 Dose: 1 each Ondansetron HCl (Zofran Inj) 4 mg IV.PUSH Q6H PRN PRN Reason: NAUSEA OR VOMITING Polyethylene Glycol (Miralax) 17 gm PO BID [facility] Last Admin: 12/09/18 08:21 Dose: 17 gm Potassium Chloride (Kcl Liq) 40 meq PO UNSCH PRN PRN Reason: Potassium level 3.3-3.5 mEq/L Potassium Chloride (Kcl Liq) 40 meq PO UNSCH PRN PRN Reason: POTASSIUM LESS THAN 3.5 Last Admin: 12/08/18 08:05 Dose: 40 meq Potassium Phosphate (K-Phos Original) 2,000 mg PO UNSCH PRN PRN Reason: SEE LABEL COMMENTS Potassium Phosphate (K-Phos Original) 2,000 mg PO Q4H PRN PRN Reason: Phosphorus Less Than 2.5 mg/dL Senna/Docusate Sodium (Noelle-Colace) 1 tab PO BID [facility] Last Admin: 12/09/18 08:20 Dose: 1 tab Sodium Chloride (Ns Flush) 2 ml IV.FLUSH UNSCH PRN PRN Reason: FLUSH AFTER USING IV ACCESS Terbutaline Sulfate (Brethine Inj) 1 mg SQ UNSCH PRN PRN Reason: For Extravasation Allergies/Adverse Reactions: Allergies Allergy/AdvReac Type Severity Reaction Status Date / Time No Known Allergies Allergy Verified 09/21/18 15:52 Review of Systems unobtainable due to endotracheal tube, unobtainable due to mental status Physical Exam Vital signs: Vital Signs 12/08/18 09:00 12/08/18 09:04 12/08/18 09:15 Temperature Pulse Rate 94 H 97 H Respiratory Rate 14 Pulse Oximetry 97 12/08/18 09:30 12/08/18 09:45 12/08/18 10:00 Temperature Pulse Rate 103 H 94 H 91 H Respiratory Rate 21 21 Pulse Oximetry 100 94 L 93 L 12/08/18 10:15 12/08/18 10:30 12/08/18 10:45 Temperature Pulse Rate 88 84 100 H Respiratory Rate 22 22 Pulse Oximetry 93 L 95 98 12/08/18 11:00 12/08/18 11:15 12/08/18 11:30 Temperature Pulse Rate 91 H 87 87 Respiratory Rate 22 22 22 Pulse Oximetry 94 L 93 L 94 L 12/08/18 11:45 12/08/18 12:00 12/08/18 12:13 Temperature 98.7 F Pulse Rate 87 105 H Respiratory Rate 20 18 Pulse Oximetry 95 98 97 12/08/18 12:15 12/08/18 12:30 12/08/18 12:45 Temperature Pulse Rate 108 H 96 H 93 H Respiratory Rate 18 18 18 Pulse Oximetry 97 93 L 95 12/08/18 12:49 12/08/18 13:00 12/08/18 13:15 Temperature Pulse Rate 90 90 106 H Respiratory Rate 20 18 20 Pulse Oximetry 96 91 L 12/08/18 14:00 12/08/18 14:30 12/08/18 15:00 Temperature Pulse Rate 97 H 95 H 99 H Respiratory Rate 22 22 22 Pulse Oximetry 97 97 93 L 12/08/18 15:15 12/08/18 15:25 12/08/18 15:30 Temperature Pulse Rate 93 H 96 H 101 H Respiratory Rate 22 16 22 Pulse Oximetry 95 94 L 12/08/18 15:45 12/08/18 16:00 12/08/18 16:15 Temperature Pulse Rate 99 H 105 H 103 H Respiratory Rate 24 22 22 Pulse Oximetry 92 L 91 L 94 L 12/08/18 16:30 12/08/18 16:45 12/08/18 17:00 Temperature Pulse Rate 92 H 81 83 Respiratory Rate 22 20 20 Pulse Oximetry 95 95 95 12/08/18 17:15 12/08/18 17:30 12/08/18 17:45 Temperature Pulse Rate 80 80 87 Respiratory Rate 20 25 H 23 Pulse Oximetry 96 97 96 12/08/18 18:00 12/08/18 19:00 12/08/18 19:15 Temperature Pulse Rate 86 89 87 Respiratory Rate 22 30 H 31 H Pulse Oximetry 94 L 89 L 90 L 12/08/18 19:17 12/08/18 19:30 12/08/18 19:38 Temperature Pulse Rate 87 88 Respiratory Rate 30 H 29 H Pulse Oximetry 91 L 86 L 91 L 12/08/18 19:45 12/08/18 20:00 12/08/18 20:15 Temperature 98.3 F Pulse Rate 89 65 88 Respiratory Rate 27 H 24 25 H Pulse Oximetry 91 L 94 L 95 12/08/18 20:30 12/08/18 20:45 12/08/18 21:00 Temperature Pulse Rate 88 86 92 H Respiratory Rate 24 26 H 24 Pulse Oximetry 97 98 99 12/08/18 21:15 12/08/18 21:30 12/08/18 21:45 Temperature Pulse Rate 93 H 94 H 101 H Respiratory Rate 23 22 73 H Pulse Oximetry 94 L 94 L 90 L 12/08/18 22:00 12/08/18 22:15 12/08/18 22:30 Temperature Pulse Rate 89 90 98 H Respiratory Rate 113 H 27 H 23 Pulse Oximetry 96 97 94 L 12/08/18 22:45 12/08/18 23:00 12/08/18 23:15 Temperature Pulse Rate 103 H 94 H 97 H Respiratory Rate 27 H 28 H 30 H Pulse Oximetry 90 L 95 95 12/08/18 23:27 12/08/18 23:30 12/08/18 23:45 Temperature Pulse Rate 97 H 100 H 99 H Respiratory Rate 28 H 23 24 Pulse Oximetry 94 L 93 L 12/09/18 00:00 12/09/18 00:15 12/09/18 00:30 Temperature 98.7 F Pulse Rate 101 H 101 H 101 H Respiratory Rate 25 H 23 122 H Pulse Oximetry 94 L 93 L 94 L 12/09/18 00:45 12/09/18 01:00 12/09/18 01:15 Temperature Pulse Rate 103 H 101 H 109 H Respiratory Rate 102 H 108 H 111 H Pulse Oximetry 92 L 93 L 88 L 12/09/18 01:30 12/09/18 01:45 12/09/18 02:00 Temperature Pulse Rate 106 H 110 H 105 H Respiratory Rate 107 H 99 H 107 H Pulse Oximetry 88 L 87 L 91 L 12/09/18 02:15 12/09/18 02:30 12/09/18 02:45 Temperature Pulse Rate 106 H 104 H 108 H Respiratory Rate 94 H 107 H 65 H Pulse Oximetry 91 L 91 L 97 12/09/18 03:00 12/09/18 03:15 12/09/18 03:30 Temperature Pulse Rate 107 H 107 H 102 H Respiratory Rate 39 H 51 H 25 H Pulse Oximetry 95 87 L 93 L 12/09/18 03:45 12/09/18 03:51 12/09/18 04:00 Temperature 99 F Pulse Rate 97 H 96 H 94 H Respiratory Rate 23 24 21 Pulse Oximetry 98 97 97 12/09/18 04:15 12/09/18 04:30 12/09/18 04:45 Temperature Pulse Rate 92 H 97 H 98 H Respiratory Rate 18 25 H 25 H Pulse Oximetry 99 100 98 12/09/18 05:00 12/09/18 05:15 12/09/18 05:30 Temperature Pulse Rate 98 H 97 H 96 H Respiratory Rate 27 H 23 21 Pulse Oximetry 99 99 100 12/09/18 05:45 12/09/18 06:00 12/09/18 06:15 Temperature Pulse Rate 95 H 95 H 95 H Respiratory Rate 15 18 14 Pulse Oximetry 100 99 100 12/09/18 07:53 Temperature Pulse Rate 90 Respiratory Rate 20 Pulse Oximetry 99 Intake & Output 12/08/18 12/09/18 12/09/18 18:59 06:59 18:59 Intake Total 1808 / 1808 678 / 678 Output Total 400 / 400 250 / 250 Balance 1408 / 1408 428 / 428 Weight 83.3 kg Intake: IV 1658 / 1658 678 / 678 NS Inj 1,000 ML @ 70 mls/hr IV. 1322 / 1322 678 / 678 CONT .[id number] [facility] Rx#:[id number] Cardene Inj 25 MG In NS Inj 240 136 / 136 ML @ 5 MG/HR 50 mls/hr IV.CONT TITRATE PRN Rx#:[id number] KCl 20 mEq Premix Inj 20 meq In 200 / 200 100 ml @ 50 mls/hr IV.SIG Q2H PRN Rx#:[id number] Water Bolus Amount 150 / 150 Output: Urine Amount (Catheter) 400 / 400 250 / 250 Condom 400 / 400 250 / 250 Gastric Drainage 0 / 0 Orogastric Tube 0 / 0 Other: # Incontinent Voids 2 # Bowel Movements 0 0 Narrative: GENERAL: in NAD, on propofol SKIN: Warm and dry. HEAD: Atraumatic. Normocephalic. EYES: Pupils equal and round. No scleral icterus. ENT: No nasal bleeding or discharge. NECK: Trachea midline. No JVD. CARDIOVASCULAR: Regular rate and rhythm. RESPIRATORY: Intubated GASTROINTESTINAL: Abdomen soft, non-tender, nondistended. MUSCULOSKELETAL: Extremities without clubbing, cyanosis, NEUROLOGICAL: Intubated, somnolent somewhat difficult to arouse, not following, mild left gaze preference, no upper extremity movement, withdrawing lower extremity bilateral extensor plantar PSYCHIATRIC: Calm - Constitutional no acute distress - Routine HEENT Exam Head: Present: normocephalic - Urinary Catheter Management Indwelling Urethral Catheter Cath placed during this visit: yes Reason for continuing: Hourly intake/output Insertion date: 12/07/18 Insertion time: 07:27 Condom Cath placed during this visit: yes, but has since been removed by the nurse Reason for continuing: Continue criteria not met Insertion date: 12/07/18 Removal date: 12/07/18 Removal time: 18:00 Objective Laboratory Results - last 24 hr 12/08/18 12/08/18 12/08/18 12:44 17:51 23:45 WBC RBC Hgb Hct MCV MCH MCHC RDW Plt Count MPV Neut % (Auto) Lymph % (Auto) Bath % (Auto) Eos % (Auto) Baso % (Auto) Neut # (Auto) Lymph # (Auto) Bath # (Auto) Eos # (Auto) Baso # (Auto) WBC Differential Differential Comment Puncture Site Patient Temperature O2 Saturation ABG pH ABG pCO2 ABG pO2 ABG HCO3 ABG O2 Content ABG Base Excess ABG Methemoglobin Sergio Test Hemoglobin Carboxyhemoglobin O2 Delivery Device Vent Setting Inspired O2 Critical Value Sodium Potassium Chloride Carbon Dioxide Anion Gap BUN Creatinine Estimated GFR POC Glucose 154 H 146 H 133 H Random Glucose Calcium Phosphorus Magnesium 12/09/18 12/09/18 12/09/18 03:26 05:26 06:05 WBC 16.6 H RBC 4.44 L Hgb 13.6 Hct 39.9 MCV 90.0 MCH 30.7 MCHC 34.1 RDW 14.8 Plt Count 199 MPV 10.0 Neut % (Auto) 76.2 H Lymph % (Auto) 12.3 Bath % (Auto) 10.0 H Eos % (Auto) 0.7 Baso % (Auto) 0.8 Neut # (Auto) 12.6 H Lymph # (Auto) 2.0 Bath # (Auto) 1.7 H Eos # (Auto) 0.1 Baso # (Auto) 0.1 WBC Differential . Differential Comment Auto diff final Puncture Site Right radial Patient Temperature 98.6 O2 Saturation 92 ABG pH 7.51 H* ABG pCO2 28 L ABG pO2 63 ABG HCO3 22 ABG O2 Content 18.0 ABG Base Excess -0.4 ABG Methemoglobin 1.0 Sergio Test Present Hemoglobin 13.9 Carboxyhemoglobin 1.3 O2 Delivery Device Ventilator Vent Setting 16/500/[id number]/it1.0 Inspired O2 100 Critical Value Yes Sodium Potassium Chloride Carbon Dioxide Anion Gap BUN Creatinine Estimated GFR POC Glucose 136 H Random Glucose Calcium Phosphorus Magnesium 12/09/18 06:05 WBC RBC Hgb Hct MCV MCH MCHC RDW Plt Count MPV Neut % (Auto) Lymph % (Auto) Bath % (Auto) Eos % (Auto) Baso % (Auto) Neut # (Auto) Lymph # (Auto) Bath # (Auto) Eos # (Auto) Baso # (Auto) WBC Differential Differential Comment Puncture Site Patient Temperature O2 Saturation ABG pH ABG pCO2 ABG pO2 ABG HCO3 ABG O2 Content ABG Base Excess ABG Methemoglobin Sergio Test Hemoglobin Carboxyhemoglobin O2 Delivery Device Vent Setting Inspired O2 Critical Value Sodium 141 Potassium 3.6 Chloride 109 H Carbon Dioxide 21.8 Anion Gap 10 BUN 14 Creatinine 0.70 Estimated GFR Greater than 89 POC Glucose Random Glucose 148 H Calcium 7.6 L Phosphorus 1.5 L D Magnesium 1.8 Microbiology 12/07/18 13:00 Urine Culture - Final Catheterized Urine No growth in 48 hours 12/07/18 15:21 Aerobic Blood Culture - Preliminary Blood - Peripheral No growth in 1 day Anaerobic Blood Culture - Preliminary No growth in 1 day 12/07/18 15:26 Aerobic Blood Culture - Preliminary Blood - Peripheral No growth in 1 day Anaerobic Blood Culture - Preliminary No growth in 1 day Review/Management - Diagnosis (1) Acute ischemic left MCA stroke Code(s): I63.512 - Cerebral infarction due to unspecified occlusion or stenosis of left middle cerebral artery Status: Acute Current Visit: Yes (2) Left carotid artery occlusion Code(s): I65.22 - Occlusion and stenosis of left carotid artery Status: Acute Current Visit: Yes (3) Stroke Code(s): I63.9 - Cerebral infarction, unspecified Status: Acute Current Visit: Yes (4) Leukocytosis Code(s): D72.829 - Elevated white blood cell count, unspecified Status: Acute Current Visit: Yes (5) Pneumonia Code(s): J18.9 - Pneumonia, unspecified organism Status: Acute Current Visit : Yes (6) GI bleed Code(s): K92.2 - Gastrointestinal hemorrhage, unspecified Status: Acute Current Visit: Yes (7) Respiratory failure Code(s): J96.90 - Respiratory failure, unspecified, unspecified whether with hypoxia or hypercapnia Status: Acute Current Visit: Yes - Review/Management Plan: Status post left carotid stent placement, mechanical thromboembolectomy Etiology would include aortic arch athero emboli, versus A. fib MRI brain scan reviewed moderate left MCA territory strokes 2D echo showing EF proximal 45% with mild pericardial effusion Recommendation Follow-up CT brain noncontrast. Patient quite somnolent part of this may be related to propofol Aspirin, statin Extubation per critical care Follow exam (3) Stroke Qualifiers: CVA mechanism: occlusion Precerebral and cerebral artery: middle cerebral artery Laterality of affected vessel: left Qualified Code(s): I63.512 - Cerebral infarction due to unspecified occlusion or stenosis of left middle cerebral artery (4) Leukocytosis Qualifiers: Leukocytosis type: unspecified Qualified Code(s): D72.829 - Elevated white blood cell count, unspecified (5) Pneumonia Qualifiers: Pneumonia type: due to unspecified organism Laterality: left Lung location: lower lobe of lung Qualified Code(s): J18.1 - Lobar pneumonia, unspecified organism (6) GI bleed Qualifiers: GI bleed type/associated pathology: unspecified gastrointestinal hemorrhage type Qualified Code(s): K92.2 - Gastrointestinal hemorrhage, unspecified (7) Respiratory failure Qualifiers: Chronicity: acute Respiratory failure complication: unspecified whether with hypoxia or hypercapnia Qualified Code(s): J96.00 - Acute respiratory failure, unspecified whether with hypoxia or hypercapnia
[2018-12-09] MEDS: Propofol 1000 mg/100 ml Inj 1,000 MG/100 ML BOTTLE IV.CONT PRN ×2 (11:28→21:42)
--- NOTE | 2018-12-09 12:11 | CT ---
EXAM DATE: 12/09/2018 12:01 PM EST AGE/SEX: 73 years / Male INDICATIONS: Patient was a stroke alert three days ago. CT scan yesterday showed evolving left MCA t erritory ischemic infarction. CLINICAL DATA: This is the patient's subsequent encounter. Patient reports that signs and symptoms h ave been present for 3 days and indicates a pain score of 0/10. MEDICAL/SURGICAL HISTORY: Heart disease. Hypertension. Splenectomy. RADIATION DOSE: 39.05 CTDI (mGy) COMPARISON: [facility] – [place] HEAD W/O CONTRAST, 12/08/2018. [facility] [place] HEAD W/O CONTRAST, 12/08/2018. . TECHNIQUE: CT of the head without contrast. Using automated exposure control and adjustment of the mA and/or kV according to patient size, radiation dose was kept as low as reasonably achievable to ob tain optimal diagnostic quality images. DICOM format image data is available electronically for revi ew and comparison. FINDINGS: Cerebrum: Hypodensities in the left anterior sylvian region and posterior parieto-occipital region i s similar in size to prior MR and CT. No evidence of hemorrhage. No evidence of midline shift. Mild f lattening of the lateral wall of the left frontal horn, similar to prior. No extra-axial fluid collec tions. No evidence of acute blood products. Posterior Fossa: The cerebellum and brainstem are intact. The 4th ventricle is midline. The cerebe llopontine angle is unremarkable. Extracranial: The visualized portion of the orbits is intact. Bilateral maxillary air-fluid level si milar to prior. Skull: The calvaria is intact. No evidence of skull fracture. CONCLUSION: 1. Stable appearance to the left MCA infarctions in the anterior sylvian and posterior parieto-occip ital regions. 2. No evidence of acute hemorrhage. 3. Stable bilateral maxillary sinus disease. . Electronically signed by: Jaime Segura MD Board Certified Radiologist 12/09/2018 12:10 PM EST
[2018-12-09] MEDS: Ampicillin/Sulbactam Inj 3 GM in Sodium Chloride 0.9% Inj 100 ML IV.SIG SCH ×2 (12:23→17:12)
[2018-12-10] MEDS: Oral Hygiene Kit OROPHARYNG SCH ×4 (00:44→16:17)
[2018-12-10] MEDS: Ampicillin/Sulbactam Inj 3 GM in Sodium Chloride 0.9% Inj 100 ML IV.SIG SCH ×4 (00:44→17:18)
[2018-12-10] MEDS: Insulin NovoLIN Regular Correctional Sugar Inj SQ SCH ×4 (00:44→17:29)
[2018-12-10] MEDS: Chlorhexidine Gluconate 2% 1 Pack (2 Cloths) TOPICAL SCH (04:22)
[2018-12-10 04:31] LABS: Baso # (Auto) 0.1 th/mm3 (0.0-0.2); Baso % (Auto) 0.6 % (0.0-2.0); Eos # (Auto) 0.3 th/mm3 (0.0-0.4); Eos % (Auto) 2.4 % (0.0-4.0); Hematocrit 40.7 % (39.0-51.0); Hemoglobin 13.6 gm/dL (13.0-17.0); Lymph # (Auto) 2.1 th/mm3 (1.0-4.8); Lymph % (Auto) 17.2 % (9.0-44.0); Mean Corpuscular HGB Conc 33.3 % (32.0-36.0); Mean Corpuscular Hemoglobin 29.8 pg (27.0-34.0); Mean Corpuscular Volume 89.5 fL (80.0-100.0); Mean Platelet Volume 9.6 fL (7.0-11.0); Mono # (Auto) 1.4 th/mm3 (0.0-0.9); Mono % (Auto) 11.2 % (0.0-8.0); Neut # (Auto) 8.5 th/mm3 (1.8-7.7); Neut % (Auto) 68.6 % (16.0-70.0); Platelet Count 198 th/mm3 (150-450); Red Blood Count 4.55 mil/mm3 (4.50-5.90); White Blood Count 12.5 th/mm3 (4.0-11.0)
[2018-12-10 05:05] LABS: Anion Gap 8 meq/L (5-15); Blood Urea Nitrogen 14 mg/dL (7-18); Calcium 7.8 mg/dL (8.5-10.1); Carbon Dioxide 23.8 meq/L (21.0-32.0); Chloride 109 meq/L (98-107); Glomerular Filtration Rate Greater Than 89 mL/min (>89); Glucose,Random 130 mg/dL (74-106); Phosphorus 2.9 mg/dL (2.5-4.9); Potassium 3.5 meq/L (3.5-5.1); Sodium 141 meq/L (136-145)
[2018-12-10 05:45] LABS: ABG PCO2 32 mmHg (38-42); ABG PO2 75 mmHg (61-120)
[2018-12-10] MEDS: Heparin - SQ 10,000 UNITS/ML Vial SQ SCH ×3 (06:19→21:16)
[2018-12-10] MEDS: Propofol 1000 mg/100 ml Inj 1,000 MG/100 ML BOTTLE IV.CONT PRN ×3 (06:20→21:23)
[2018-12-10] MEDS: Polyethylene Glycol 3350 17 GM Packet PO SCH ×2 (08:36→21:17)
[2018-12-10] MEDS: Aspirin 325 MG Tablet PO SCH (08:36)
[2018-12-10] MEDS: Famotidine PF Inj 20 MG/2 ML Vial IV.PUSH SCH ×2 (08:37→21:16)
[2018-12-10] MEDS: Senna/Docusate Sodium 8.6/50 MG Tablet PO SCH ×2 (08:37→21:16)
[2018-12-10] MEDS: Chlorhexidine 0.12% Oral Kit 15 ML UDC OROPHARYNG SCH ×2 (08:38→21:18)
--- NOTE | 2018-12-10 10:03 | P.PNNEU ---
Subjective Subjective Comments: No acute event Active Medications: Active Medications Acetaminophen (Tylenol) 650 mg PO Q6H PRN PRN Reason: TEMPERATURE > 101 F Albuterol (Duoneb Neb (Prn)) 1 ampul NEB Q2HR NEB PRN PRN Reason: SHORTNESS OF BREATH Albuterol (Duoneb Neb (Braulio)) 1 ampul NEB Q4HR NEB [facility] Last Admin: 12/10/18 07:30 Dose: 1 ampul Artificial Tears (Tears Naturale Opth Drops) 1 drop EACH EYE Q6H [facility] Aspirin (Aspirin) 325 mg PO DAILY [facility] Last Admin: 12/10/18 08:36 Dose: 325 mg Atorvastatin Calcium (Lipitor) 80 mg PO DAILY [facility] Last Admin: 12/10/18 08:37 Dose: 80 mg Bisacodyl (Dulcolax Supp) 10 mg RECTAL DAILY PRN PRN Reason: if no BM in last 24h Chlorhexidine Gluconate (Peridex 0.12% Oral Kit) 15 ml OROPHARYNG BID@0800, 2000 [facility] Last Admin: 12/10/18 08:38 Dose: 15 ml Chlorhexidine Gluconate (Chlorhexidine 2% Cloth) 3 pack TOPICAL DAILY@0400 [facility] Stop: 12/13/18 03:59 Last Admin: 12/10/18 04:22 Dose: 3 pack Chlorhexidine Gluconate (Chlorhexidine 2% Cloth) 3 pack TOPICAL DAILY@0400 PRN PRN Reason: Extra cloth needed Stop: 12/13/18 03:59 Dextrose (D50w Vial) 50 ml IV.PUSH UNSCH PRN PRN Reason: PER HYPOGLYCEMIA PROTOCOL Famotidine (Pepcid Pf Inj) 20 mg IV.PUSH Q12HR [facility] Last Admin: 12/10/18 08:37 Dose: 20 mg Glucagon (Glucagon Inj) 1 mg OTHER PRN PRN PRN Reason: for Hypoglycemia Protocol Heparin Sodium (Porcine) (Heparin Inj) 5,000 units SQ Q8HR [facility] Last Admin: 12/10/18 06:19 Dose: 5,000 units Hydralazine HCl (Apresoline Inj) 10 mg IV.PUSH Q30M PRN PRN Reason: sbp > 180 Sodium Chloride (Ns Inj) 1,000 mls @ 70 mls/hr IV.CONT .[id number] [facility] Last Admin: 12/09/18 21:44 Dose: 70 mls/hr Pantoprazole Sodium 80 mg/ (Sodium Chloride) 100 mls @ 10 mls/hr IV.CONT CONT BRAULIO Phenylephrine HCl 40 mg/ (Sodium Chloride) 500 mls @ 30 mls/hr IV.CONT TITRATE PRN; Protocol PRN Reason: Per Protocol Last Titration: 12/10/18 06:21 Dose: 0 mcg/min, 0 mls/hr Magnesium Sulfate 4 gm/ Sodium (Chloride) 100 mls @ 50 mls/hr IV.SIG UNSCH PRN PRN Reason: For Magnesium 0.9 - 1.1 mg/dL Magnesium Sulfate 2 gm/ Sodium (Chloride) 100 mls @ 50 mls/hr IV.SIG UNSCH PRN PRN Reason: For Magnesium 1.2 - 1.6 mg/dL Potassium Chloride (Kcl 40 Meq Premix Inj) 40 meq in 100 mls @ 25 mls/hr IV.SIG Q2H PRN PRN Reason: For Potassium 2.8 - 3.2 mEq/L Potassium Chloride (Kcl 20 Meq Premix Inj) 20 meq in 100 mls @ 50 mls/hr IV.SIG Q2H PRN PRN Reason: For Potassium 3.3 - 3.5 mEq/L Potassium Chloride (Kcl 40 Meq Premix Inj) 40 meq in 100 mls @ 25 mls/hr IV.SIG UNSCH PRN PRN Reason: For Potassium 3.3 - 3.5 mEq/L Potassium Chloride (Kcl 20 Meq Premix Inj) 20 meq in 100 mls @ 50 mls/hr IV.SIG Q2H PRN PRN Reason: For Potassium 2.8 - 3.2 mEq/L Last Infusion: 12/08/18 11:09 Dose: Infused Potassium Phosphate 30 mmol/ (Sodium Chloride) 260 mls @ 42 mls/hr IV.SIG UNSCH PRN PRN Reason: SEE LABEL COMMENTS Last Admin: 12/09/18 08:19 Dose: 42 mls/hr Sodium Phosphate 30 mmol/ (Sodium Chloride) 260 mls @ 42 mls/hr IV.SIG UNSCH PRN PRN Reason: For Phosphorus < 2.5 mg/dL Nicardipine HCl 25 mg/ Sodium (Chloride) 250 mls @ 50 mls/hr IV.CONT TITRATE PRN; Protocol PRN Reason: Per Protocol Last Titration: 12/08/18 17:46 Dose: 0 mg/hr, 0 mls/hr Propofol (Diprivan 1000 Mg/100 Ml Inj) 1,000 mg in 100 mls @ 2.436 mls/hr IV.CONT TITRATE PRN; Protocol PRN Reason: Per Protocol Last Admin: 12/10/18 06:20 Dose: 25 mcg/kg/min, 12.18 mls/hr Ampicillin Sodium/Sulbactam (Sodium 3 gm/ Sodium Chloride) 100 mls @ 200 mls/ hr IV.SIG Q6H [facility] Last Infusion: 12/10/18 06:59 Dose: Infused Insulin Human Regular (Novolin R Correctional Sugar Inj) 0 units SQ Q6HR [facility]; Protocol Last Admin: 12/10/18 06:58 Dose: Not Given Labetalol HCl (Trandate Inj) 10 mg IV.PUSH Q30M PRN PRN Reason: SYS BP GREATER THAN 180 [facility] Last Admin: 12/08/18 16:32 Dose: 10 mg Lactulose (Lactulose Liq) 30 ml PO BID [facility] Last Admin: 12/10/18 08:36 Dose: 30 ml Magnesium Oxide (Mag-Ox) 800 mg PO UNSCH PRN PRN Reason: For Magnesium 1.2 - 1.6 mg/dL Miscellaneous Medication () 1 each OROPHARYNG 0000,0400,1200,1600 [facility] Last Admin: 12/10/18 04:23 Dose: 1 each Ondansetron HCl (Zofran Inj) 4 mg IV.PUSH Q6H PRN PRN Reason: NAUSEA OR VOMITING Polyethylene Glycol (Miralax) 17 gm PO BID [facility] Last Admin: 12/10/18 08:36 Dose: 17 gm Potassium Chloride (Kcl Liq) 40 meq PO UNSCH PRN PRN Reason: Potassium level 3.3-3.5 mEq/L Potassium Chloride (Kcl Liq) 40 meq PO UNSCH PRN PRN Reason: POTASSIUM LESS THAN 3.5 Last Admin: 12/08/18 08:05 Dose: 40 meq Potassium Phosphate (K-Phos Original) 2,000 mg PO UNSCH PRN PRN Reason: SEE LABEL COMMENTS Potassium Phosphate (K-Phos Original) 2,000 mg PO Q4H PRN PRN Reason: Phosphorus Less Than 2.5 mg/dL Senna/Docusate Sodium (Noelle-Colace) 1 tab PO BID [facility] Last Admin: 12/10/18 08:37 Dose: 1 tab Sodium Chloride (Ns Flush) 2 ml IV.FLUSH UNSCH PRN PRN Reason: FLUSH AFTER USING IV ACCESS Terbutaline Sulfate (Brethine Inj) 1 mg SQ UNSCH PRN PRN Reason: For Extravasation Allergies/Adverse Reactions: Allergies Allergy/AdvReac Type Severity Reaction Status Date / Time No Known Allergies Allergy Verified 09/21/18 15:52 Review of Systems All other systems reviewed negative except as stated in HPI Physical Exam Vital signs: Vital Signs 12/09/18 10:15 12/09/18 10:18 12/09/18 10:30 Temperature Pulse Rate 77 77 77 Respiratory Rate 34 H 30 H 26 H Blood Pressure 159/77 H Pulse Oximetry 97 98 98 12/09/18 10:33 12/09/18 10:45 12/09/18 10:48 Temperature Pulse Rate 79 80 77 Respiratory Rate 24 20 24 Blood Pressure 165/87 H 153/81 H Pulse Oximetry 99 95 95 12/09/18 11:19 12/09/18 11:33 12/09/18 11:45 Temperature Pulse Rate 94 H 82 92 H Respiratory Rate 23 22 Blood Pressure 133/67 Pulse Oximetry 98 98 100 12/09/18 11:48 12/09/18 12:00 12/09/18 12:03 Temperature 99.7 F H Pulse Rate 94 H 91 H 92 H Respiratory Rate 0 L 22 40 H Blood Pressure 180/84 H 184/91 H Pulse Oximetry 99 100 98 12/09/18 12:12 12/09/18 12:15 12/09/18 12:18 Temperature Pulse Rate 85 83 Respiratory Rate 0 L 0 L Blood Pressure 130/74 Pulse Oximetry 98 97 96 12/09/18 12:30 12/09/18 12:33 12/09/18 12:45 Temperature Pulse Rate 81 80 70 Respiratory Rate 0 L 0 L 0 L Blood Pressure 122/69 Pulse Oximetry 100 98 100 12/09/18 12:48 12/09/18 13:00 12/09/18 13:03 Temperature Pulse Rate 71 70 71 Respiratory Rate 0 L 0 L 0 L Blood Pressure 158/78 H 154/82 H Pulse Oximetry 100 100 100 12/09/18 13:15 12/09/18 13:18 12/09/18 13:30 Temperature Pulse Rate 70 70 73 Respiratory Rate 0 L 0 L 18 Blood Pressure 167/89 H Pulse Oximetry 100 100 93 L 12/09/18 13:33 12/09/18 13:45 12/09/18 13:48 Temperature Pulse Rate 72 69 70 Respiratory Rate 14 14 14 Blood Pressure 165/88 H 170/93 H Pulse Oximetry 100 100 100 12/09/18 14:00 12/09/18 14:03 12/09/18 14:15 Temperature Pulse Rate 69 69 69 Respiratory Rate 14 14 14 Blood Pressure 171/94 H Pulse Oximetry 100 100 100 12/09/18 14:18 12/09/18 14:30 12/09/18 14:33 Temperature Pulse Rate 69 72 74 Respiratory Rate 14 14 22 Blood Pressure 174/95 H 143/79 H Pulse Oximetry 100 100 100 12/09/18 14:45 12/09/18 14:48 12/09/18 15:00 Temperature Pulse Rate 75 74 75 Respiratory Rate 24 23 22 Blood Pressure 129/69 Pulse Oximetry 100 85 L 100 12/09/18 15:03 12/09/18 15:15 12/09/18 15:18 Temperature Pulse Rate 74 71 71 Respiratory Rate 19 23 14 Blood Pressure 136/73 150/81 H Pulse Oximetry 100 100 100 12/09/18 15:27 12/09/18 15:30 12/09/18 15:33 Temperature Pulse Rate 70 76 77 Respiratory Rate 25 H 25 H 19 Blood Pressure 156/82 H Pulse Oximetry 100 100 100 12/09/18 15:45 12/09/18 15:48 12/09/18 16:00 Temperature Pulse Rate 84 80 81 Respiratory Rate 16 15 14 Blood Pressure 157/77 H Pulse Oximetry 100 100 100 12/09/18 16:03 12/09/18 16:15 12/09/18 16:18 Temperature Pulse Rate 84 80 80 Respiratory Rate 22 23 23 Blood Pressure 158/79 H 159/81 H Pulse Oximetry 100 100 100 12/09/18 16:30 12/09/18 16:33 12/09/18 16:45 Temperature Pulse Rate 74 73 84 Respiratory Rate 23 22 14 Blood Pressure 157/79 H Pulse Oximetry 100 100 99 12/09/18 16:48 12/09/18 17:00 12/09/18 17:03 Temperature Pulse Rate 81 73 73 Respiratory Rate 14 14 14 Blood Pressure 170/84 H 155/75 H Pulse Oximetry 99 100 99 12/09/18 17:15 12/09/18 17:18 12/09/18 17:30 Temperature Pulse Rate 73 73 72 Respiratory Rate 14 14 14 Blood Pressure 148/75 H Pulse Oximetry 100 100 100 12/09/18 17:33 12/09/18 17:45 12/09/18 17:48 Temperature Pulse Rate 72 72 72 Respiratory Rate 14 14 14 Blood Pressure 146/74 H 145/76 H Pulse Oximetry 100 100 100 12/09/18 18:00 12/09/18 18:03 12/09/18 18:15 Temperature Pulse Rate 72 72 73 Respiratory Rate 14 14 22 Blood Pressure 156/77 H Pulse Oximetry 100 100 99 12/09/18 18:18 12/09/18 19:00 12/09/18 19:33 Temperature Pulse Rate 69 90 82 Respiratory Rate 22 22 16 Blood Pressure 154/81 H 176/92 H Pulse Oximetry 99 100 12/09/18 19:41 12/09/18 19:45 12/09/18 19:48 Temperature Pulse Rate 78 76 Respiratory Rate 22 21 21 Blood Pressure 182/106 H Pulse Oximetry 98 100 97 12/09/18 20:00 12/09/18 20:03 12/09/18 20:15 Temperature 98.3 F Pulse Rate 82 82 86 Respiratory Rate 21 19 12 Blood Pressure 152/74 H Pulse Oximetry 97 97 95 12/09/18 20:18 12/09/18 20:30 12/09/18 20:33 Temperature Pulse Rate 85 86 85 Respiratory Rate 16 23 24 Blood Pressure 147/74 H 129/58 L Pulse Oximetry 95 96 96 12/09/18 20:45 12/09/18 20:48 12/09/18 21:00 Temperature Pulse Rate 83 83 76 Respiratory Rate 23 23 14 Blood Pressure 120/60 Pulse Oximetry 95 95 96 12/09/18 21:03 12/09/18 21:15 12/09/18 21:18 Temperature Pulse Rate 76 78 77 Respiratory Rate 14 14 14 Blood Pressure 136/67 140/68 Pulse Oximetry 97 98 98 12/09/18 21:30 12/09/18 21:33 12/09/18 21:45 Temperature Pulse Rate 77 77 75 Respiratory Rate 14 14 14 Blood Pressure 153/74 H Pulse Oximetry 99 98 98 12/09/18 21:48 12/09/18 22:00 12/09/18 22:03 Temperature Pulse Rate 75 76 76 Respiratory Rate 14 14 14 Blood Pressure 156/76 H 161/80 H Pulse Oximetry 97 99 100 12/09/18 22:15 12/09/18 22:18 12/09/18 22:30 Temperature Pulse Rate 76 75 74 Respiratory Rate 14 14 14 Blood Pressure 157/81 H Pulse Oximetry 100 99 99 12/09/18 22:33 12/09/18 22:45 12/09/18 22:48 Temperature Pulse Rate 75 79 78 Respiratory Rate 14 21 23 Blood Pressure 156/82 H 155/81 H Pulse Oximetry 100 96 95 12/09/18 23:00 12/09/18 23:03 12/09/18 23:15 Temperature Pulse Rate 80 75 71 Respiratory Rate 23 23 14 Blood Pressure 153/79 H Pulse Oximetry 97 98 98 12/09/18 23:18 12/09/18 23:30 12/09/18 23:33 Temperature Pulse Rate 71 72 71 Respiratory Rate 14 14 14 Blood Pressure 150/78 H 147/78 H Pulse Oximetry 99 99 99 12/09/18 23:45 12/09/18 23:48 12/09/18 23:49 Temperature Pulse Rate 71 72 Respiratory Rate 14 15 22 Blood Pressure 147/77 H Pulse Oximetry 99 99 100 12/10/18 00:00 12/10/18 00:03 12/10/18 00:15 Temperature 97.7 F Pulse Rate 82 71 71 Respiratory Rate 22 22 22 Blood Pressure 148/77 H Pulse Oximetry 100 100 100 12/10/18 00:18 12/10/18 00:30 12/10/18 00:33 Temperature Pulse Rate 70 74 83 Respiratory Rate 22 22 22 Blood Pressure 155/79 H 180/86 H Pulse Oximetry 100 99 100 12/10/18 00:45 12/10/18 00:48 12/10/18 01:00 Temperature Pulse Rate 77 76 80 Respiratory Rate 9 L 14 9 L Blood Pressure 170/80 H Pulse Oximetry 97 97 98 12/10/18 01:03 12/10/18 01:15 12/10/18 01:18 Temperature Pulse Rate 76 76 76 Respiratory Rate 7 L 14 14 Blood Pressure 167/82 H 164/81 H Pulse Oximetry 99 96 96 12/10/18 01:30 12/10/18 01:33 12/10/18 01:45 Temperature Pulse Rate 79 73 75 Respiratory Rate 9 L 23 6 L Blood Pressure 164/81 H Pulse Oximetry 97 97 99 12/10/18 01:48 12/10/18 02:00 12/10/18 02:03 Temperature Pulse Rate 75 80 70 Respiratory Rate 9 L 14 14 Blood Pressure 155/78 H 147/72 H Pulse Oximetry 98 98 98 12/10/18 02:15 12/10/18 02:18 12/10/18 02:30 Temperature Pulse Rate 70 70 70 Respiratory Rate 14 14 14 Blood Pressure 143/69 H Pulse Oximetry 99 98 97 12/10/18 02:33 12/10/18 02:45 12/10/18 02:48 Temperature Pulse Rate 82 75 73 Respiratory Rate 17 13 23 Blood Pressure 157/76 H 129/71 Pulse Oximetry 97 97 95 12/10/18 03:00 12/10/18 03:03 12/10/18 03:15 Temperature Pulse Rate 82 74 73 Respiratory Rate 24 23 22 Blood Pressure 174/80 H Pulse Oximetry 98 99 100 12/10/18 03:30 12/10/18 03:31 12/10/18 03:33 Temperature Pulse Rate 72 72 76 Respiratory Rate 18 20 17 Blood Pressure 164/80 H 161/78 H Pulse Oximetry 100 99 98 12/10/18 03:45 12/10/18 04:00 12/10/18 04:03 Temperature 98 F Pulse Rate 70 68 73 Respiratory Rate 24 14 14 Blood Pressure 127/77 Pulse Oximetry 84 L 97 95 12/10/18 04:15 12/10/18 04:19 12/10/18 04:26 Temperature Pulse Rate 78 99 H 82 Respiratory Rate 15 21 24 Blood Pressure 205/110 H 174/82 H Pulse Oximetry 100 95 100 12/10/18 04:30 12/10/18 04:33 12/10/18 04:45 Temperature Pulse Rate 82 82 84 Respiratory Rate 25 H 27 H 21 Blood Pressure 179/82 H Pulse Oximetry 100 100 100 12/10/18 04:48 12/10/18 05:00 12/10/18 05:03 Temperature Pulse Rate 83 85 82 Respiratory Rate 21 17 18 Blood Pressure 162/72 H 186/84 H Pulse Oximetry 100 100 100 12/10/18 05:15 12/10/18 05:18 12/10/18 05:30 Temperature Pulse Rate 88 82 84 Respiratory Rate 17 17 16 Blood Pressure 170/73 H Pulse Oximetry 100 100 100 12/10/18 05:33 12/10/18 05:45 12/10/18 05:48 Temperature Pulse Rate 84 83 80 Respiratory Rate 16 14 14 Blood Pressure 164/70 H 147/64 H Pulse Oximetry 100 100 100 12/10/18 06:00 12/10/18 06:03 12/10/18 06:15 Temperature Pulse Rate 76 76 74 Respiratory Rate 14 14 14 Blood Pressure 148/64 H Pulse Oximetry 100 100 100 12/10/18 06:18 12/10/18 06:30 12/10/18 07:31 Temperature Pulse Rate 74 72 74 Respiratory Rate 14 14 14 Blood Pressure 140/64 Pulse Oximetry 100 100 98 Intake & Output 12/09/18 12/10/18 12/10/18 18:59 06:59 18:59 Intake Total 340 / 340 1070 / 1070 Output Total 350 / 350 400 / 400 Balance -10 / -10 670 / 670 Weight 82.8 kg Intake: IV 100 / 100 822 / 822 Diprivan 1000 mg/100 ml Inj 1, 200 / 200 000 mg In 100 ml @ 5 MCG/KG/MIN 2.436 mls/hr IV.CONT TITRATE PRN Rx#:[id number] NS Inj 1,000 ML @ 70 mls/hr IV. 322 / 322 CONT .[id number] [facility] Rx#:[id number] Unasyn Inj 3 GM In NS Inj 100 100 / 100 300 / 300 ML @ 200 mls/hr IV.SIG Q6H [facility] Rx#:[id number] Tube Feeding 128 / 128 Tube Irrigant 240 / 240 120 / 120 Output: Urine 350 / 350 Urine Amount (Catheter) 400 / 400 Condom 400 / 400 Other: # Bowel Movements 0 Narrative: GENERAL: in NAD, on propofol SKIN: Warm and dry. HEAD: Atraumatic. Normocephalic. EYES: Pupils equal and round. No scleral icterus. ENT: No nasal bleeding or discharge. NECK: Trachea midline. No JVD. CARDIOVASCULAR: Regular rate and rhythm. RESPIRATORY: Intubated GASTROINTESTINAL: Abdomen soft, non-tender, nondistended. MUSCULOSKELETAL: Extremities without clubbing, cyanosis, NEUROLOGICAL: Intubated, on sedation, not following, mild left gaze preference , localizes left upper extremity, withdraws lower mainly left right Babinski reduced movement of right upper extremity PSYCHIATRIC: Calm - Constitutional no acute distress - Routine HEENT Exam Head: Present: normocephalic - Urinary Catheter Management Indwelling Urethral Catheter Cath placed during this visit: yes Reason for continuing: Hourly intake/output Insertion date: 12/07/18 Insertion time: 07:27 Condom Cath placed during this visit: yes, but has since been removed by the nurse Reason for continuing: Continue criteria not met Insertion date: 12/07/18 Removal date: 12/07/18 Removal time: 18:00 Objective Laboratory Results - last 24 hr 12/09/18 12/09/18 12/10/18 12:17 17:07 00:30 WBC RBC Hgb Hct MCV MCH MCHC RDW Plt Count MPV Neut % (Auto) Lymph % (Auto) Ida % (Auto) Eos % (Auto) Baso % (Auto) Neut # (Auto) Lymph # (Auto) Ida # (Auto) Eos # (Auto) Baso # (Auto) WBC Differential Differential Comment Puncture Site Patient Temperature O2 Saturation ABG pH ABG pCO2 ABG pO2 ABG HCO3 ABG O2 Content ABG Base Excess ABG Methemoglobin Sergio Test Hemoglobin Carboxyhemoglobin O2 Delivery Device Vent Setting Inspired O2 Critical Value Sodium Potassium Chloride Carbon Dioxide Anion Gap BUN Creatinine Estimated GFR POC Glucose 138 H 124 H 112 H Random Glucose Calcium Phosphorus Magnesium 12/10/18 12/10/18 12/10/18 04:14 04:14 05:39 WBC 12.5 H RBC 4.55 Hgb 13.6 Hct 40.7 MCV 89.5 MCH 29.8 MCHC 33.3 RDW 15.0 Plt Count 198 MPV 9.6 Neut % (Auto) 68.6 Lymph % (Auto) 17.2 Ida % (Auto) 11.2 H Eos % (Auto) 2.4 Baso % (Auto) 0.6 Neut # (Auto) 8.5 H Lymph # (Auto) 2.1 Ida # (Auto) 1.4 H Eos # (Auto) 0.3 Baso # (Auto) 0.1 WBC Differential . Differential Comment Auto diff final Puncture Site Right radial Patient Temperature 98.6 O2 Saturation 94 ABG pH 7.46 H ABG pCO2 32 L ABG pO2 75 ABG HCO3 22 ABG O2 Content 16.6 ABG Base Excess -1.0 ABG Methemoglobin 1.2 Sergio Test + Hemoglobin 12.6 Carboxyhemoglobin 1.1 O2 Delivery Device Ventilator Vent Setting Prvc/ac Inspired O2 45 Critical Value No Sodium 141 Potassium 3.5 Chloride 109 H Carbon Dioxide 23.8 Anion Gap 8 BUN 14 Creatinine 0.65 Estimated GFR Greater than 89 POC Glucose Random Glucose 130 H Calcium 7.8 L Phosphorus 2.9 D Magnesium 2.0 Microbiology 12/09/18 03:00 Gram Stain - Final Sputum - Endotracheal 12/07/18 15:21 Aerobic Blood Culture - Preliminary Blood - Peripheral No growth in 2 days Anaerobic Blood Culture - Preliminary No growth in 2 days 12/07/18 15:26 Aerobic Blood Culture - Preliminary Blood - Peripheral No growth in 2 days Anaerobic Blood Culture - Preliminary No growth in 2 days 12/07/18 13:00 Urine Culture - Final Catheterized Urine No growth in 48 hours Review/Management - Diagnosis (1) Acute ischemic left MCA stroke Code(s): I63.512 - Cerebral infarction due to unspecified occlusion or stenosis of left middle cerebral artery Status: Acute Current Visit: Yes (2) Left carotid artery occlusion Code(s): I65.22 - Occlusion and stenosis of left carotid artery Status: Acute Current Visit: Yes (3) Stroke Code(s): I63.9 - Cerebral infarction, unspecified Status: Acute Current Visit: Yes (4) Leukocytosis Code(s): D72.829 - Elevated white blood cell count, unspecified Status: Acute Current Visit: Yes (5) Pneumonia Code(s): J18.9 - Pneumonia, unspecified organism Status: Acute Current Visit : Yes (6) GI bleed Code(s): K92.2 - Gastrointestinal hemorrhage, unspecified Status: Acute Current Visit: Yes (7) Respiratory failure Code(s): J96.90 - Respiratory failure, unspecified, unspecified whether with hypoxia or hypercapnia Status: Acute Current Visit: Yes - Review/Management Plan: Status post left carotid stent placement, mechanical thromboembolectomy Etiology would include aortic arch athero emboli, versus A. fib MRI brain scan reviewed moderate left MCA territory strokes 2D echo showing EF proximal 45% with mild pericardial effusion 12/09/2018 CT brain stable Recommendation Neuro stable Aspirin, statin Extubation per critical care Discussed with RN Follow exam (3) Stroke Qualifiers: CVA mechanism: occlusion Precerebral and cerebral artery: middle cerebral artery Laterality of affected vessel: left Qualified Code(s): I63.512 - Cerebral infarction due to unspecified occlusion or stenosis of left middle cerebral artery (4) Leukocytosis Qualifiers: Leukocytosis type: unspecified Qualified Code(s): D72.829 - Elevated white blood cell count, unspecified (5) Pneumonia Qualifiers: Pneumonia type: due to unspecified organism Laterality: left Lung location: lower lobe of lung Qualified Code(s): J18.1 - Lobar pneumonia, unspecified organism (6) GI bleed Qualifiers: GI bleed type/associated pathology: unspecified gastrointestinal hemorrhage type Qualified Code(s): K92.2 - Gastrointestinal hemorrhage, unspecified (7) Respiratory failure Qualifiers: Chronicity: acute Respiratory failure complication: unspecified whether with hypoxia or hypercapnia Qualified Code(s): J96.00 - Acute respiratory failure, unspecified whether with hypoxia or hypercapnia
--- NOTE | 2018-12-10 11:13 | P.DIET ---
Nutritional Evaluation Type of nutrition evaluation: initial Nutrition consult regarding: Tube Feeding Objective - Diagnosis Stroke, Respiratory failure, GI Bleed - Objective % IBW: 96 (IBW = 190#) Body Weight Used for Calculations: Actual (82.8 kg) Energy Needs - Lower Range (kCal/kg): 25 Energy Needs - Upper Range (kCal/kg): 30 Lower Limit kCal/kg (kCals): 2,070 Upper Limit kCal/kg (kCals): 2,484 Lower Limit Protein Factor (Grams per Kg): 1.0 Upper Limit Protein Factor (Grams per Kg): 1.5 Lower Protein Needs (Protein): 83 Upper Protein Needs (Protein): 124 Dietitian Reviewed in Medical Record: Curent medications, Intake & Output, Labs , Medical history, Tube feeding Diet Order: NPO Assessment Assessment: Pt is at high nutrition risk 2' to TFing. Agree with current TF order for Jevity 1.5 @ 60 mls/hr goal. This will provide 2160 kcals, 92 gms protein and 1094 mls of free water. Some additional kcals will be provided by propofol (1.1 kcal/ml). Recommendations: Jevity 1.5 @ 60 mls/hr goal Dietitian to Monitor: Lab values, Intake & Output, Tube feeding tolerance, Medical course
[2018-12-10] MEDS: Artificial Tears Opth Drops 15 ML Bottle EACH EYE SCH ×3 (12:14→21:18)
--- NOTE | 2018-12-10 18:20 | P.PNCC ---
Subjective Subjective Remarks/Hospital Course: Hospital Course: 73yM last seen normal reports of 1:30am by notes found written by him presented with acute altered mentation and aphasia. initial NIHSS 11 --> 8, but he clinically decompensated and required intubation for a rapidly declining mental status. CT head negative for acute bleed. CTA head/neck demonstrates acute left ICA occlusion. taken emergently for interventional thrombectomy. arrives from embolectomy intubated, sedated. no additional information available from the patient. ROS unobtainable. Subjective: 12/08: following commands. passing SBT. MRI with left MCA distribution infarct, no hemorrhagic conversion. 12/09: reintubated overnight for respiratory failure. now has LLL consolidation, likely aspiration related. repeat head CT shows evolving stroke, no new hemorrhage. 12/10: no changes. awaiting cerebral edema to resolve prior to second attempt at extubation. Objective Vital Signs / I&O: Vital Signs 12/09/18 19:00 12/09/18 19:33 12/09/18 19:41 Temperature Pulse Rate 90 82 Respiratory Rate 22 16 22 Blood Pressure 176/92 H Pulse Oximetry 100 98 12/09/18 19:45 12/09/18 19:48 12/09/18 20:00 Temperature 36.8 C Pulse Rate 78 76 82 Respiratory Rate 21 21 21 Blood Pressure 182/106 H Pulse Oximetry 100 97 97 12/09/18 20:03 12/09/18 20:15 12/09/18 20:18 Temperature Pulse Rate 82 86 85 Respiratory Rate 19 12 16 Blood Pressure 152/74 H 147/74 H Pulse Oximetry 97 95 95 12/09/18 20:30 12/09/18 20:33 12/09/18 20:45 Temperature Pulse Rate 86 85 83 Respiratory Rate 23 24 23 Blood Pressure 129/58 L Pulse Oximetry 96 96 95 12/09/18 20:48 12/09/18 21:00 12/09/18 21:03 Temperature Pulse Rate 83 76 76 Respiratory Rate 23 14 14 Blood Pressure 120/60 136/67 Pulse Oximetry 95 96 97 12/09/18 21:15 12/09/18 21:18 12/09/18 21:30 Temperature Pulse Rate 78 77 77 Respiratory Rate 14 14 14 Blood Pressure 140/68 Pulse Oximetry 98 98 99 12/09/18 21:33 12/09/18 21:45 12/09/18 21:48 Temperature Pulse Rate 77 75 75 Respiratory Rate 14 14 14 Blood Pressure 153/74 H 156/76 H Pulse Oximetry 98 98 97 12/09/18 22:00 12/09/18 22:03 12/09/18 22:15 Temperature Pulse Rate 76 76 76 Respiratory Rate 14 14 14 Blood Pressure 161/80 H Pulse Oximetry 99 100 100 12/09/18 22:18 12/09/18 22:30 12/09/18 22:33 Temperature Pulse Rate 75 74 75 Respiratory Rate 14 14 14 Blood Pressure 157/81 H 156/82 H Pulse Oximetry 99 99 100 12/09/18 22:45 12/09/18 22:48 12/09/18 23:00 Temperature Pulse Rate 79 78 80 Respiratory Rate 21 23 23 Blood Pressure 155/81 H Pulse Oximetry 96 95 97 12/09/18 23:03 12/09/18 23:15 12/09/18 23:18 Temperature Pulse Rate 75 71 71 Respiratory Rate 23 14 14 Blood Pressure 153/79 H 150/78 H Pulse Oximetry 98 98 99 12/09/18 23:30 12/09/18 23:33 12/09/18 23:45 Temperature Pulse Rate 72 71 71 Respiratory Rate 14 14 14 Blood Pressure 147/78 H Pulse Oximetry 99 99 99 12/09/18 23:48 12/09/18 23:49 12/10/18 00:00 Temperature 36.5 C Pulse Rate 72 82 Respiratory Rate 15 22 22 Blood Pressure 147/77 H Pulse Oximetry 99 100 100 12/10/18 00:03 12/10/18 00:15 12/10/18 00:18 Temperature Pulse Rate 71 71 70 Respiratory Rate 22 22 22 Blood Pressure 148/77 H 155/79 H Pulse Oximetry 100 100 100 12/10/18 00:30 12/10/18 00:33 12/10/18 00:45 Temperature Pulse Rate 74 83 77 Respiratory Rate 22 22 9 L Blood Pressure 180/86 H Pulse Oximetry 99 100 97 12/10/18 00:48 12/10/18 01:00 12/10/18 01:03 Temperature Pulse Rate 76 80 76 Respiratory Rate 14 9 L 7 L Blood Pressure 170/80 H 167/82 H Pulse Oximetry 97 98 99 12/10/18 01:15 12/10/18 01:18 12/10/18 01:30 Temperature Pulse Rate 76 76 79 Respiratory Rate 14 14 9 L Blood Pressure 164/81 H Pulse Oximetry 96 96 97 12/10/18 01:33 12/10/18 01:45 12/10/18 01:48 Temperature Pulse Rate 73 75 75 Respiratory Rate 23 6 L 9 L Blood Pressure 164/81 H 155/78 H Pulse Oximetry 97 99 98 12/10/18 02:00 12/10/18 02:03 12/10/18 02:15 Temperature Pulse Rate 80 70 70 Respiratory Rate 14 14 14 Blood Pressure 147/72 H Pulse Oximetry 98 98 99 12/10/18 02:18 12/10/18 02:30 12/10/18 02:33 Temperature Pulse Rate 70 70 82 Respiratory Rate 14 14 17 Blood Pressure 143/69 H 157/76 H Pulse Oximetry 98 97 97 12/10/18 02:45 12/10/18 02:48 12/10/18 03:00 Temperature Pulse Rate 75 73 82 Respiratory Rate 13 23 24 Blood Pressure 129/71 Pulse Oximetry 97 95 98 12/10/18 03:03 12/10/18 03:15 12/10/18 03:30 Temperature Pulse Rate 74 73 72 Respiratory Rate 23 22 18 Blood Pressure 174/80 H Pulse Oximetry 99 100 100 12/10/18 03:31 12/10/18 03:33 12/10/18 03:45 Temperature Pulse Rate 72 76 70 Respiratory Rate 20 17 24 Blood Pressure 164/80 H 161/78 H Pulse Oximetry 99 98 84 L 12/10/18 04:00 12/10/18 04:03 12/10/18 04:15 Temperature 36.6 C Pulse Rate 68 73 78 Respiratory Rate 14 14 15 Blood Pressure 127/77 Pulse Oximetry 97 95 100 12/10/18 04:19 12/10/18 04:26 12/10/18 04:30 Temperature Pulse Rate 99 H 82 82 Respiratory Rate 21 24 25 H Blood Pressure 205/110 H 174/82 H Pulse Oximetry 95 100 100 12/10/18 04:33 12/10/18 04:45 12/10/18 04:48 Temperature Pulse Rate 82 84 83 Respiratory Rate 27 H 21 21 Blood Pressure 179/82 H 162/72 H Pulse Oximetry 100 100 100 12/10/18 05:00 12/10/18 05:03 12/10/18 05:15 Temperature Pulse Rate 85 82 88 Respiratory Rate 17 18 17 Blood Pressure 186/84 H Pulse Oximetry 100 100 100 12/10/18 05:18 12/10/18 05:30 12/10/18 05:33 Temperature Pulse Rate 82 84 84 Respiratory Rate 17 16 16 Blood Pressure 170/73 H 164/70 H Pulse Oximetry 100 100 100 12/10/18 05:45 12/10/18 05:48 12/10/18 06:00 Temperature Pulse Rate 83 80 76 Respiratory Rate 14 14 14 Blood Pressure 147/64 H Pulse Oximetry 100 100 100 12/10/18 06:03 12/10/18 06:15 12/10/18 06:18 Temperature Pulse Rate 76 74 74 Respiratory Rate 14 14 14 Blood Pressure 148/64 H 140/64 Pulse Oximetry 100 100 100 12/10/18 06:30 12/10/18 07:03 12/10/18 07:15 Temperature Pulse Rate 72 88 Respiratory Rate 14 15 Blood Pressure 178/74 H Pulse Oximetry 100 96 12/10/18 07:18 12/10/18 07:30 12/10/18 07:31 Temperature Pulse Rate 81 75 74 Respiratory Rate 14 14 14 Blood Pressure 144/66 H Pulse Oximetry 97 98 98 12/10/18 07:33 12/10/18 07:45 12/10/18 07:48 Temperature Pulse Rate 87 78 77 Respiratory Rate 15 17 17 Blood Pressure 158/74 H 134/64 Pulse Oximetry 89 L 97 97 12/10/18 08:00 12/10/18 08:03 12/10/18 08:15 Temperature 36.9 C Pulse Rate 78 76 73 Respiratory Rate 17 18 14 Blood Pressure 132/60 Pulse Oximetry 97 97 97 12/10/18 08:18 12/10/18 08:30 12/10/18 08:33 Temperature Pulse Rate 74 77 75 Respiratory Rate 14 14 14 Blood Pressure 152/72 H 151/64 H Pulse Oximetry 96 97 96 12/10/18 08:45 12/10/18 08:48 12/10/18 09:00 Temperature Pulse Rate 76 73 73 Respiratory Rate 14 14 13 Blood Pressure 160/74 H Pulse Oximetry 97 98 97 12/10/18 09:03 12/10/18 09:15 12/10/18 09:18 Temperature Pulse Rate 71 82 83 Respiratory Rate 12 14 19 Blood Pressure 162/77 H 168/78 H Pulse Oximetry 97 98 98 12/10/18 09:30 12/10/18 09:33 12/10/18 09:45 Temperature Pulse Rate 79 77 81 Respiratory Rate 14 15 29 H Blood Pressure 141/65 H Pulse Oximetry 95 96 95 12/10/18 09:48 12/10/18 10:00 12/10/18 10:03 Temperature Pulse Rate 81 71 72 Respiratory Rate 14 14 14 Blood Pressure 152/72 H 140/63 Pulse Oximetry 98 98 96 12/10/18 10:15 12/10/18 10:18 12/10/18 10:30 Temperature Pulse Rate 74 73 74 Respiratory Rate 14 14 14 Blood Pressure 118/58 L Pulse Oximetry 97 97 96 12/10/18 10:33 12/10/18 10:45 12/10/18 10:48 Temperature Pulse Rate 74 74 75 Respiratory Rate 14 14 14 Blood Pressure 108/53 L 101/51 L Pulse Oximetry 96 96 96 12/10/18 11:00 12/10/18 11:03 12/10/18 11:09 Temperature Pulse Rate 74 73 72 Respiratory Rate 14 14 14 Blood Pressure 113/56 L Pulse Oximetry 97 96 99 12/10/18 11:15 12/10/18 11:18 12/10/18 11:30 Temperature Pulse Rate 69 68 71 Respiratory Rate 17 17 17 Blood Pressure 118/58 L Pulse Oximetry 98 99 97 12/10/18 11:33 12/10/18 11:45 12/10/18 11:48 Temperature Pulse Rate 66 67 66 Respiratory Rate 18 17 18 Blood Pressure 133/66 137/68 Pulse Oximetry 99 99 99 12/10/18 12:00 12/10/18 12:03 12/10/18 12:15 Temperature Pulse Rate 66 66 69 Respiratory Rate 17 18 14 Blood Pressure 144/70 H Pulse Oximetry 98 98 99 12/10/18 12:18 12/10/18 12:30 12/10/18 12:33 Temperature Pulse Rate 79 79 77 Respiratory Rate 14 8 L 8 L Blood Pressure 157/78 H 151/75 H Pulse Oximetry 99 98 98 12/10/18 12:45 12/10/18 12:48 12/10/18 13:00 Temperature Pulse Rate 81 81 84 Respiratory Rate 10 L 14 14 Blood Pressure 156/78 H Pulse Oximetry 99 98 98 12/10/18 13:03 12/10/18 13:15 12/10/18 13:18 Temperature Pulse Rate 85 87 87 Respiratory Rate 14 14 11 L Blood Pressure 147/67 H 140/61 Pulse Oximetry 98 98 97 12/10/18 13:30 12/10/18 13:33 12/10/18 13:45 Temperature Pulse Rate 89 88 87 Respiratory Rate 15 15 15 Blood Pressure 150/69 H Pulse Oximetry 99 99 95 12/10/18 13:48 12/10/18 14:00 12/10/18 14:03 Temperature Pulse Rate 88 87 87 Respiratory Rate 12 15 15 Blood Pressure 145/67 H 140/65 Pulse Oximetry 99 99 100 12/10/18 14:15 12/10/18 14:18 12/10/18 14:30 Temperature Pulse Rate 87 86 84 Respiratory Rate 15 15 14 Blood Pressure 133/63 Pulse Oximetry 97 97 97 12/10/18 14:33 12/10/18 14:45 12/10/18 14:48 Temperature Pulse Rate 85 85 87 Respiratory Rate 14 15 15 Blood Pressure 135/63 139/66 Pulse Oximetry 100 98 98 12/10/18 15:00 12/10/18 15:03 12/10/18 15:06 Temperature Pulse Rate 82 82 82 Respiratory Rate 14 14 14 Blood Pressure 130/61 Pulse Oximetry 100 99 100 12/10/18 15:15 12/10/18 15:18 12/10/18 15:30 Temperature Pulse Rate 80 79 78 Respiratory Rate 16 20 20 Blood Pressure 131/59 L Pulse Oximetry 98 97 100 12/10/18 15:33 12/10/18 15:45 12/10/18 15:48 Temperature Pulse Rate 79 82 83 Respiratory Rate 14 14 14 Blood Pressure 128/60 146/67 H Pulse Oximetry 100 97 99 12/10/18 16:00 12/10/18 16:03 12/10/18 16:15 Temperature 37.0 C Pulse Rate 82 82 93 H Respiratory Rate 14 13 17 Blood Pressure 160/77 H Pulse Oximetry 100 98 99 12/10/18 16:18 12/10/18 16:30 12/10/18 16:33 Temperature Pulse Rate 93 H 92 H 90 Respiratory Rate 19 14 14 Blood Pressure 153/70 H 138/65 Pulse Oximetry 99 97 96 12/10/18 16:45 12/10/18 16:48 12/10/18 17:00 Temperature Pulse Rate 90 91 H 90 Respiratory Rate 17 16 19 Blood Pressure 136/64 Pulse Oximetry 97 97 96 12/10/18 17:02 12/10/18 17:15 12/10/18 17:30 Temperature Pulse Rate 92 H 92 H 86 Respiratory Rate 18 17 14 Blood Pressure 143/67 H Pulse Oximetry 97 97 96 12/10/18 17:45 12/10/18 18:00 12/10/18 18:02 Temperature Pulse Rate 89 88 87 Respiratory Rate 21 14 14 Blood Pressure 136/63 Pulse Oximetry 97 99 97 12/10/18 18:15 Temperature Pulse Rate 83 Respiratory Rate 14 Blood Pressure Pulse Oximetry 100 Intake & Output 12/09/18 12/10/18 12/10/18 18:59 06:59 18:59 Intake Total 340 / 340 1070 / 1070 917 / 917 Output Total 350 / 350 400 / 400 250 / 250 Balance -10 / -10 670 / 670 667 / 667 Weight 82.8 kg Intake: IV 100 / 100 822 / 822 300 / 300 Diprivan 1000 mg/100 ml Inj 1, 200 / 200 100 / 100 000 mg In 100 ml @ 5 MCG/KG/MIN 2.436 mls/hr IV.CONT TITRATE PRN Rx#:[id number] NS Inj 1,000 ML @ 70 mls/hr IV. 322 / 322 CONT .[id number] [facility] Rx#:[id number] Unasyn Inj 3 GM In NS Inj 100 100 / 100 300 / 300 200 / 200 ML @ 200 mls/hr IV.SIG Q6H [facility] Rx#:[id number] Tube Feeding 128 / 128 557 / 557 Tube Irrigant 240 / 240 120 / 120 60 / 60 Output: Urine 350 / 350 Urine Amount (Catheter) 400 / 400 250 / 250 Condom 400 / 400 250 / 250 Other: # Voids 1 # Bowel Movements 0 0 Result Diagrams: 12/10/18 04:14 12/10/18 04:14 Objective Remarks: GENERAL: Elderly male, lying in bed, intubated, sedated, critically ill HEENT: Normocephalic. Atraumatic. Pupils equal, round, reactive, conjugate. Mucous membranes are moist NECK: Trachea is midline. There is no JVD. CHEST: Equal chest rise. PRVC. fio2 40%. CARDIOVASCULAR: Normal rate, regular rhythm. sinus. ABDOMEN: Soft, nontender, nondistended. No guarding. MUSCULOSKELETAL: Pulses 2+. No peripheral edema. NEUROLOGICAL: RASS -4. withdraws x 4. does not follow commands. Assessment and Plan - Assessment and Plan Plan: Assessment: 73yM with acute left ICA occlusion and new acute CVA complicated by respiratory failure. recurrent respiratory failure likeyl secondary to CVA, hypopharyngeal dysfunction, dysphagia/dysarthria. Unclear if he will require tracheostomy for further progress. would likely need to have at least a few more days for evolving stroke and edema to improve and then trial additional extubation, and if fails, will need trach to further progress his care. critically ill with recurrent respiratory failure and now aspiration pneumonia by CXR. will also add empiric abx. Acute CVA acute left ICA occlusion Acute encephalopathy - s/p mechanical thrombectomy 12/07 in IR, successful - frequent neuro checks - PT/OT/ST - ASA - DVT prophylaxis - neurology consult - lipids, a1c - statin - 2d echo: EF 45% - liberalize sbp goals per neurology: normotension. - phenylephrine to keep appropriate cerebral perfusion Acute hypoxic and hypercarbic respiratory failure- recurrent - vent bundle - hob elevated - nebs - aggressive pulmonary toilet - wean fio2 for goal spo2 > 90% - extubated 12/08, reintubated 12/09 for respiratory failure, inability to manage secretions - will give a few additional days for cerebral edema to resolve and attempt second trial of extubation, but if he fails again, will require tracheostomy to progress care. Aspiration pneumonia - has been inpatient < 72h and at home prior - low suspicion for resistant bacteria - Unasyn 3gm iv q6h - sputum culture dispo: remain in ICU. critically ill with new aspiration pneumonia, recurrent respiratory failure, inability to remain off life support.
[2018-12-11] MEDS: Insulin NovoLIN Regular Correctional Sugar Inj SQ SCH ×4 (01:34→18:13)
[2018-12-11] MEDS: Ampicillin/Sulbactam Inj 3 GM in Sodium Chloride 0.9% Inj 100 ML IV.SIG SCH ×4 (01:36→18:51)
[2018-12-11] MEDS: Artificial Tears Opth Drops 15 ML Bottle EACH EYE SCH ×5 (01:37→23:30)
[2018-12-11] MEDS: Sod Chloride 0.9% Inj 1,000 ML IV.CONT SCH ×3 (01:38→12:29)
[2018-12-11] MEDS: Oral Hygiene Kit OROPHARYNG SCH ×4 (01:38→15:59)
[2018-12-11] MEDS: Chlorhexidine Gluconate 2% 1 Pack (2 Cloths) TOPICAL SCH (04:32)
[2018-12-11 05:52] LABS: Baso # (Auto) 0.1 th/mm3 (0.0-0.2); Baso % (Auto) 0.6 % (0.0-2.0); Eos # (Auto) 0.4 th/mm3 (0.0-0.4); Eos % (Auto) 3.1 % (0.0-4.0); Hematocrit 38.9 % (39.0-51.0); Lymph # (Auto) 1.6 th/mm3 (1.0-4.8); Mean Corpuscular HGB Conc 33.3 % (32.0-36.0); Mean Corpuscular Hemoglobin 29.8 pg (27.0-34.0); Mean Corpuscular Volume 89.4 fL (80.0-100.0); Mean Platelet Volume 10.1 fL (7.0-11.0); Mono # (Auto) 1.2 th/mm3 (0.0-0.9); Mono % (Auto) 10.7 % (0.0-8.0); Neut # (Auto) 8.4 th/mm3 (1.8-7.7); Neut % (Auto) 71.6 % (16.0-70.0); Platelet Count 208 th/mm3 (150-450); Red Blood Count 4.36 mil/mm3 (4.50-5.90); Red Cell Distribution Width 15.4 % (11.6-17.2); White Blood Count 11.7 th/mm3 (4.0-11.0)
[2018-12-11 06:09] LABS: Anion Gap 9 meq/L (5-15); Blood Urea Nitrogen 14 mg/dL (7-18); Calcium 7.9 mg/dL (8.5-10.1); Carbon Dioxide 24.3 meq/L (21.0-32.0); Chloride 113 meq/L (98-107); Glomerular Filtration Rate Greater Than 89 mL/min (>89); Glucose,Random 106 mg/dL (74-106); Magnesium 2.1 mg/dL (1.5-2.5); Phosphorus 2.3 mg/dL (2.5-4.9); Potassium 3.4 meq/L (3.5-5.1); Sodium 146 meq/L (136-145)
[2018-12-11] MEDS: Heparin - SQ 10,000 UNITS/ML Vial SQ SCH ×3 (06:33→21:43)
--- NOTE | 2018-12-11 07:48 | P.PNCC ---
Subjective Subjective Remarks/Hospital Course: Hospital Course: 73yM last seen normal reports of 1:30am by notes found written by him presented with acute altered mentation and aphasia. initial NIHSS 11 --> 8, but he clinically decompensated and required intubation for a rapidly declining mental status. CT head negative for acute bleed. CTA head/neck demonstrates acute left ICA occlusion. taken emergently for interventional thrombectomy. arrives from embolectomy intubated, sedated. no additional information available from the patient. ROS unobtainable. Subjective: 12/08: following commands. passing SBT. MRI with left MCA distribution infarct, no hemorrhagic conversion. 12/09: reintubated overnight for respiratory failure. now has LLL consolidation, likely aspiration related. repeat head CT shows evolving stroke, no new hemorrhage. 12/10: no changes. awaiting cerebral edema to resolve prior to second attempt at extubation. 12/11: copious secretions are preventing successful weaning attempts. sputum growing GNRs, speciation to follow. mental status remains the same. Objective Vital Signs / I&O: Vital Signs 12/10/18 07:48 12/10/18 08:00 12/10/18 08:03 Temperature 36.9 C Pulse Rate 77 78 76 Respiratory Rate 17 17 18 Blood Pressure 134/64 132/60 Pulse Oximetry 97 97 97 12/10/18 08:15 12/10/18 08:18 12/10/18 08:30 Temperature Pulse Rate 73 74 77 Respiratory Rate 14 14 14 Blood Pressure 152/72 H Pulse Oximetry 97 96 97 12/10/18 08:33 12/10/18 08:45 12/10/18 08:48 Temperature Pulse Rate 75 76 73 Respiratory Rate 14 14 14 Blood Pressure 151/64 H 160/74 H Pulse Oximetry 96 97 98 12/10/18 09:00 12/10/18 09:03 12/10/18 09:15 Temperature Pulse Rate 73 71 82 Respiratory Rate 13 12 14 Blood Pressure 162/77 H Pulse Oximetry 97 97 98 12/10/18 09:18 12/10/18 09:30 12/10/18 09:33 Temperature Pulse Rate 83 79 77 Respiratory Rate 19 14 15 Blood Pressure 168/78 H 141/65 H Pulse Oximetry 98 95 96 12/10/18 09:45 12/10/18 09:48 12/10/18 10:00 Temperature Pulse Rate 81 81 71 Respiratory Rate 29 H 14 14 Blood Pressure 152/72 H Pulse Oximetry 95 98 98 12/10/18 10:03 12/10/18 10:15 12/10/18 10:18 Temperature Pulse Rate 72 74 73 Respiratory Rate 14 14 14 Blood Pressure 140/63 118/58 L Pulse Oximetry 96 97 97 12/10/18 10:30 12/10/18 10:33 12/10/18 10:45 Temperature Pulse Rate 74 74 74 Respiratory Rate 14 14 14 Blood Pressure 108/53 L Pulse Oximetry 96 96 96 12/10/18 10:48 12/10/18 11:00 12/10/18 11:03 Temperature Pulse Rate 75 74 73 Respiratory Rate 14 14 14 Blood Pressure 101/51 L 113/56 L Pulse Oximetry 96 97 96 12/10/18 11:09 12/10/18 11:15 12/10/18 11:18 Temperature Pulse Rate 72 69 68 Respiratory Rate 14 17 17 Blood Pressure 118/58 L Pulse Oximetry 99 98 99 12/10/18 11:30 12/10/18 11:33 12/10/18 11:45 Temperature Pulse Rate 71 66 67 Respiratory Rate 17 18 17 Blood Pressure 133/66 Pulse Oximetry 97 99 99 12/10/18 11:48 12/10/18 12:00 12/10/18 12:03 Temperature Pulse Rate 66 66 66 Respiratory Rate 18 17 18 Blood Pressure 137/68 144/70 H Pulse Oximetry 99 98 98 12/10/18 12:15 12/10/18 12:18 12/10/18 12:30 Temperature Pulse Rate 69 79 79 Respiratory Rate 14 14 8 L Blood Pressure 157/78 H Pulse Oximetry 99 99 98 12/10/18 12:33 12/10/18 12:45 12/10/18 12:48 Temperature Pulse Rate 77 81 81 Respiratory Rate 8 L 10 L 14 Blood Pressure 151/75 H 156/78 H Pulse Oximetry 98 99 98 12/10/18 13:00 12/10/18 13:03 12/10/18 13:15 Temperature Pulse Rate 84 85 87 Respiratory Rate 14 14 14 Blood Pressure 147/67 H Pulse Oximetry 98 98 98 12/10/18 13:18 12/10/18 13:30 12/10/18 13:33 Temperature Pulse Rate 87 89 88 Respiratory Rate 11 L 15 15 Blood Pressure 140/61 150/69 H Pulse Oximetry 97 99 99 12/10/18 13:45 12/10/18 13:48 12/10/18 14:00 Temperature Pulse Rate 87 88 87 Respiratory Rate 15 12 15 Blood Pressure 145/67 H Pulse Oximetry 95 99 99 12/10/18 14:03 12/10/18 14:15 12/10/18 14:18 Temperature Pulse Rate 87 87 86 Respiratory Rate 15 15 15 Blood Pressure 140/65 133/63 Pulse Oximetry 100 97 97 12/10/18 14:30 12/10/18 14:33 12/10/18 14:45 Temperature Pulse Rate 84 85 85 Respiratory Rate 14 14 15 Blood Pressure 135/63 Pulse Oximetry 97 100 98 12/10/18 14:48 12/10/18 15:00 12/10/18 15:03 Temperature Pulse Rate 87 82 82 Respiratory Rate 15 14 14 Blood Pressure 139/66 130/61 Pulse Oximetry 98 100 99 12/10/18 15:06 12/10/18 15:15 12/10/18 15:18 Temperature Pulse Rate 82 80 79 Respiratory Rate 14 16 20 Blood Pressure 131/59 L Pulse Oximetry 100 98 97 12/10/18 15:30 12/10/18 15:33 12/10/18 15:45 Temperature Pulse Rate 78 79 82 Respiratory Rate 20 14 14 Blood Pressure 128/60 Pulse Oximetry 100 100 97 12/10/18 15:48 12/10/18 16:00 12/10/18 16:03 Temperature 37.0 C Pulse Rate 83 82 82 Respiratory Rate 14 14 13 Blood Pressure 146/67 H 160/77 H Pulse Oximetry 99 100 98 12/10/18 16:15 12/10/18 16:18 12/10/18 16:30 Temperature Pulse Rate 93 H 93 H 92 H Respiratory Rate 17 19 14 Blood Pressure 153/70 H Pulse Oximetry 99 99 97 12/10/18 16:33 12/10/18 16:45 12/10/18 16:48 Temperature Pulse Rate 90 90 91 H Respiratory Rate 14 17 16 Blood Pressure 138/65 136/64 Pulse Oximetry 96 97 97 12/10/18 17:00 12/10/18 17:02 12/10/18 17:15 Temperature Pulse Rate 90 92 H 92 H Respiratory Rate 19 18 17 Blood Pressure 143/67 H Pulse Oximetry 96 97 97 12/10/18 17:30 12/10/18 17:45 12/10/18 18:00 Temperature Pulse Rate 86 89 88 Respiratory Rate 14 21 14 Blood Pressure Pulse Oximetry 96 97 99 12/10/18 18:02 12/10/18 18:15 12/10/18 19:02 Temperature Pulse Rate 87 83 79 Respiratory Rate 14 14 14 Blood Pressure 136/63 133/61 Pulse Oximetry 97 100 100 12/10/18 19:15 12/10/18 19:30 12/10/18 19:45 Temperature 37.7 C H Pulse Rate 77 77 81 Respiratory Rate 14 14 14 Blood Pressure Pulse Oximetry 100 100 99 12/10/18 20:00 12/10/18 20:02 12/10/18 20:15 Temperature Pulse Rate 80 80 81 Respiratory Rate 14 14 14 Blood Pressure 146/69 H Pulse Oximetry 96 98 97 12/10/18 20:25 12/10/18 20:30 12/10/18 20:45 Temperature Pulse Rate 82 90 88 Respiratory Rate 14 15 16 Blood Pressure Pulse Oximetry 100 100 99 12/10/18 21:00 12/10/18 21:02 12/10/18 21:15 Temperature Pulse Rate 88 87 91 H Respiratory Rate 18 16 16 Blood Pressure 150/70 H Pulse Oximetry 99 100 96 12/10/18 21:30 12/10/18 21:45 12/10/18 22:00 Temperature Pulse Rate 91 H 87 87 Respiratory Rate 23 20 20 Blood Pressure Pulse Oximetry 97 95 98 12/10/18 22:02 12/10/18 22:15 12/10/18 22:30 Temperature Pulse Rate 86 83 83 Respiratory Rate 19 17 14 Blood Pressure 122/60 Pulse Oximetry 99 99 99 12/10/18 22:45 12/10/18 23:00 12/10/18 23:02 Temperature Pulse Rate 83 82 80 Respiratory Rate 16 14 20 Blood Pressure 123/60 Pulse Oximetry 100 99 99 12/10/18 23:15 12/10/18 23:30 12/10/18 23:36 Temperature Pulse Rate 85 79 Respiratory Rate 20 24 14 Blood Pressure Pulse Oximetry 97 98 98 12/10/18 23:42 12/10/18 23:45 12/11/18 00:00 Temperature 37.2 C Pulse Rate 76 86 83 Respiratory Rate 22 17 21 Blood Pressure Pulse Oximetry 100 97 12/11/18 00:02 12/11/18 00:15 12/11/18 00:30 Temperature Pulse Rate 83 84 84 Respiratory Rate 21 24 21 Blood Pressure 133/61 Pulse Oximetry 98 96 97 12/11/18 00:45 12/11/18 01:00 12/11/18 01:02 Temperature Pulse Rate 86 84 84 Respiratory Rate 25 H 21 24 Blood Pressure 134/63 Pulse Oximetry 96 96 96 12/11/18 01:15 12/11/18 01:30 12/11/18 01:45 Temperature Pulse Rate 84 82 80 Respiratory Rate 24 21 25 H Blood Pressure Pulse Oximetry 96 95 96 12/11/18 02:00 12/11/18 02:02 12/11/18 02:15 Temperature Pulse Rate 82 82 82 Respiratory Rate 21 21 21 Blood Pressure 157/73 H Pulse Oximetry 96 96 96 12/11/18 02:30 12/11/18 02:45 12/11/18 03:00 Temperature Pulse Rate 82 82 83 Respiratory Rate 21 21 21 Blood Pressure Pulse Oximetry 98 100 100 12/11/18 03:02 12/11/18 03:15 12/11/18 03:30 Temperature Pulse Rate 83 83 91 H Respiratory Rate 21 19 23 Blood Pressure 161/77 H Pulse Oximetry 97 100 100 12/11/18 03:45 12/11/18 04:00 12/11/18 04:02 Temperature 37.2 C Pulse Rate 82 84 84 Respiratory Rate 21 21 21 Blood Pressure 162/80 H Pulse Oximetry 98 97 98 12/11/18 04:15 12/11/18 04:23 12/11/18 04:30 Temperature Pulse Rate 82 83 82 Respiratory Rate 21 19 21 Blood Pressure Pulse Oximetry 99 97 100 12/11/18 04:45 12/11/18 05:00 12/11/18 05:02 Temperature Pulse Rate 84 85 85 Respiratory Rate 21 22 21 Blood Pressure 160/77 H Pulse Oximetry 100 100 100 12/11/18 05:15 12/11/18 05:30 12/11/18 05:45 Temperature Pulse Rate 86 89 89 Respiratory Rate 20 14 20 Blood Pressure Pulse Oximetry 99 93 L 95 12/11/18 06:00 12/11/18 06:02 12/11/18 06:15 Temperature Pulse Rate 88 89 85 Respiratory Rate 19 21 33 H Blood Pressure 176/81 H Pulse Oximetry 95 95 95 12/11/18 06:20 12/11/18 06:30 Temperature Pulse Rate 85 84 Respiratory Rate 18 15 Blood Pressure 162/74 H Pulse Oximetry 95 96 Intake & Output 12/10/18 12/11/18 12/11/18 18:59 06:59 18:59 Intake Total 1595 / 1595 1020 / 1020 Output Total 250 / 250 Balance 1345 / 1345 1020 / 1020 Weight 83 kg Intake: IV 978 / 978 300 / 300 Diprivan 1000 mg/100 ml Inj 1, 100 / 100 100 / 100 000 mg In 100 ml @ 5 MCG/KG/MIN 2.436 mls/hr IV.CONT TITRATE PRN Rx#:[id number] NS Inj 1,000 ML @ 70 mls/hr IV. 678 / 678 CONT .[id number] LA Rx#:[id number] Unasyn Inj 3 GM In NS Inj 100 200 / 200 200 / 200 ML @ 200 mls/hr IV.SIG Q6H LA Rx#:[id number] Tube Feeding 557 / 557 720 / 720 Tube Irrigant 60 / 60 Output: Urine Amount (Catheter) 250 / 250 Condom 250 / 250 Other: # Voids 1 # Bowel Movements 0 Result Diagrams: 12/11/18 04:31 12/11/18 04:31 Objective Remarks: GENERAL: Elderly male, lying in bed, intubated, sedated, critically ill HEENT: Normocephalic. Atraumatic. Pupils equal, round, reactive, conjugate. Mucous membranes are moist NECK: Trachea is midline. There is no JVD. CHEST: Equal chest rise. PRVC. fio2 40%. thick secretions. CARDIOVASCULAR: Normal rate, regular rhythm. sinus. ABDOMEN: Soft, nontender, nondistended. No guarding. MUSCULOSKELETAL: Pulses 2+. No peripheral edema. NEUROLOGICAL: RASS -4. withdraws x 4. does not follow commands. Assessment and Plan - Assessment and Plan Plan: Assessment: 73yM with acute left ICA occlusion and new acute CVA complicated by respiratory failure. recurrent respiratory failure likely secondary to CVA, hypopharyngeal dysfunction, dysphagia/dysarthria. Unclear if he will require tracheostomy for further progress. would likely need to have at least a few more days for evolving stroke and edema to improve and then trial additional extubation, and if fails, will need trach to further progress his care. critically ill with recurrent respiratory failure and now aspiration pneumonia by CXR. secretions remain a problem- added levsin yesterday. will continue to work with daily SBTs. Acute CVA acute left ICA occlusion Acute encephalopathy - s/p mechanical thrombectomy 12/07 in IR, successful - frequent neuro checks - PT/OT/ST - ASA - DVT prophylaxis - neurology consult - lipids, a1c - statin - 2d echo: EF 45% - liberalize sbp goals per neurology: normotension. - phenylephrine to keep appropriate cerebral perfusion Acute hypoxic and hypercarbic respiratory failure- recurrent - vent bundle - hob elevated - nebs - aggressive pulmonary toilet - wean fio2 for goal spo2 > 90% - extubated 12/08, reintubated 12/09 for respiratory failure, inability to manage secretions - continue to attempt SBTs. if he fails second trial of extubation, will need tracheostomy Aspiration pneumonia Gram negative rods- sputum - has been inpatient < 72h and at home prior - low suspicion for resistant bacteria - Unasyn 3gm iv q6h - sputum culture dispo: remain in ICU. critically ill with new aspiration pneumonia, recurrent respiratory failure, inability to remain off life support.
[2018-12-11] MEDS: Senna/Docusate Sodium 8.6/50 MG Tablet PO SCH ×2 (08:36→20:45)
[2018-12-11] MEDS: Polyethylene Glycol 3350 17 GM Packet PO SCH ×2 (08:36→20:45)
[2018-12-11] MEDS: Chlorhexidine 0.12% Oral Kit 15 ML UDC OROPHARYNG SCH ×2 (08:36→20:45)
[2018-12-11] MEDS: Aspirin 325 MG Tablet PO SCH (08:36)
[2018-12-11] MEDS: Famotidine PF Inj 20 MG/2 ML Vial IV.PUSH SCH ×2 (08:36→20:44)
[2018-12-11] MEDS: Propofol 1000 mg/100 ml Inj 1,000 MG/100 ML BOTTLE IV.CONT PRN (08:39)
[2018-12-11] MEDS: Potassium Chlor 20 mEq Premix 20 MEQ/100 ML PIGGYBACK IV.SIG PRN ×2 (08:40→11:30)
--- NOTE | 2018-12-11 09:29 | XR ---
EXAM DATE: 12/11/2018 9:23 AM EST AGE/SEX: 73 years / Male INDICATIONS: Respiratory failure. CLINICAL DATA: This is the patient's subsequent encounter. Patient reports that signs and symptoms h ave been present for 4 - 6 days and indicates a pain score of Nonresponsive. MEDICAL/SURGICAL HISTORY: Stroke. GI Bleed Appendectomy. COMPARISON: [facility] – [place]ST 1V SINGLE AP, 12/09/2018. . FINDINGS: A single AP view of the chest demonstrates bibasilar densities. The density in the right lung base wo rse when compared to previous study. Left lung density is unchanged. Heart mildly enlarged. Endotrach eal tube and nasogastric tube unchanged The cardiomediastinal contours are unremarkable. Osseous str uctures are intact. CONCLUSION: Cardiomegaly with bibasilar densities.Worsening density in the right lung base when compared to previ ous study. Electronically signed by: Fadi Meyers MD Board Certified Radiologist 12/11/2018 9:27 AM EST
--- NOTE | 2018-12-11 10:37 | P.PNNEU ---
Subjective Subjective Comments: No acute events Active Medications: Active Medications Acetaminophen (Tylenol) 650 mg PO Q6H PRN PRN Reason: TEMPERATURE > 101 F Albuterol (Duoneb Neb (Prn)) 1 ampul NEB Q2HR NEB PRN PRN Reason: SHORTNESS OF BREATH Albuterol (Duoneb Neb (Braulio)) 1 ampul NEB Q4HR NEB [facility] Last Admin: 12/11/18 08:23 Dose: 1 ampul Artificial Tears (Tears Naturale Opth Drops) 1 drop EACH EYE Q6H [facility] Last Admin: 12/11/18 04:41 Dose: 1 drop Aspirin (Aspirin) 325 mg PO DAILY [facility] Last Admin: 12/11/18 08:36 Dose: 325 mg Atorvastatin Calcium (Lipitor) 80 mg PO DAILY [facility] Last Admin: 12/11/18 08:36 Dose: 80 mg Bisacodyl (Dulcolax Supp) 10 mg RECTAL DAILY PRN PRN Reason: if no BM in last 24h Chlorhexidine Gluconate (Peridex 0.12% Oral Kit) 15 ml OROPHARYNG BID@0800, 2000 [facility] Last Admin: 12/11/18 08:36 Dose: 15 ml Chlorhexidine Gluconate (Chlorhexidine 2% Cloth) 3 pack TOPICAL DAILY@0400 [facility] Stop: 12/13/18 03:59 Last Admin: 12/11/18 04:32 Dose: 3 pack Chlorhexidine Gluconate (Chlorhexidine 2% Cloth) 3 pack TOPICAL DAILY@0400 PRN PRN Reason: Extra cloth needed Stop: 12/13/18 03:59 Dextrose (D50w Vial) 50 ml IV.PUSH UNSCH PRN PRN Reason: PER HYPOGLYCEMIA PROTOCOL Famotidine (Pepcid Pf Inj) 20 mg IV.PUSH Q12HR [facility] Last Admin: 12/11/18 08:36 Dose: 20 mg Glucagon (Glucagon Inj) 1 mg OTHER PRN PRN PRN Reason: for Hypoglycemia Protocol Heparin Sodium (Porcine) (Heparin Inj) 5,000 units SQ Q8HR [facility] Last Admin: 12/11/18 06:33 Dose: 5,000 units Hydralazine HCl (Apresoline Inj) 10 mg IV.PUSH Q30M PRN PRN Reason: sbp > 180 Hyoscyamine (Levsin) 0.25 mg PO Q4H PRN PRN Reason: secretions Sodium Chloride (Ns Inj) 1,000 mls @ 70 mls/hr IV.CONT .[id number] [facility] Last Admin: 12/11/18 04:35 Dose: Not Given Pantoprazole Sodium 80 mg/ (Sodium Chloride) 100 mls @ 10 mls/hr IV.CONT CONT [facility] Phenylephrine HCl 40 mg/ (Sodium Chloride) 500 mls @ 30 mls/hr IV.CONT TITRATE PRN; Protocol PRN Reason: Per Protocol Last Titration: 12/10/18 06:21 Dose: 0 mcg/min, 0 mls/hr Magnesium Sulfate 4 gm/ Sodium (Chloride) 100 mls @ 50 mls/hr IV.SIG UNSCH PRN PRN Reason: For Magnesium 0.9 - 1.1 mg/dL Magnesium Sulfate 2 gm/ Sodium (Chloride) 100 mls @ 50 mls/hr IV.SIG UNSCH PRN PRN Reason: For Magnesium 1.2 - 1.6 mg/dL Potassium Chloride (Kcl 40 Meq Premix Inj) 40 meq in 100 mls @ 25 mls/hr IV.SIG Q2H PRN PRN Reason: For Potassium 2.8 - 3.2 mEq/L Potassium Chloride (Kcl 20 Meq Premix Inj) 20 meq in 100 mls @ 50 mls/hr IV.SIG Q2H PRN PRN Reason: For Potassium 3.3 - 3.5 mEq/L Last Admin: 12/11/18 08:40 Dose: 50 mls/hr Potassium Chloride (Kcl 40 Meq Premix Inj) 40 meq in 100 mls @ 25 mls/hr IV.SIG UNSCH PRN PRN Reason: For Potassium 3.3 - 3.5 mEq/L Potassium Chloride (Kcl 20 Meq Premix Inj) 20 meq in 100 mls @ 50 mls/hr IV.SIG Q2H PRN PRN Reason: For Potassium 2.8 - 3.2 mEq/L Last Infusion: 12/08/18 11:09 Dose: Infused Potassium Phosphate 30 mmol/ (Sodium Chloride) 260 mls @ 42 mls/hr IV.SIG UNSCH PRN PRN Reason: SEE LABEL COMMENTS Last Admin: 12/09/18 08:19 Dose: 42 mls/hr Sodium Phosphate 30 mmol/ (Sodium Chloride) 260 mls @ 42 mls/hr IV.SIG UNSCH PRN PRN Reason: For Phosphorus < 2.5 mg/dL Nicardipine HCl 25 mg/ Sodium (Chloride) 250 mls @ 50 mls/hr IV.CONT TITRATE PRN; Protocol PRN Reason: Per Protocol Last Titration: 12/08/18 17:46 Dose: 0 mg/hr, 0 mls/hr Propofol (Diprivan 1000 Mg/100 Ml Inj) 1,000 mg in 100 mls @ 2.436 mls/hr IV.CONT TITRATE PRN; Protocol PRN Reason: Per Protocol Last Admin: 12/11/18 08:39 Dose: 25 mcg/kg/min, 12.18 mls/hr Ampicillin Sodium/Sulbactam (Sodium 3 gm/ Sodium Chloride) 100 mls @ 200 mls/ hr IV.SIG Q6H [facility] Last Infusion: 12/11/18 06:56 Dose: Infused Insulin Human Regular (Novolin R Correctional Sugar Inj) 0 units SQ Q6HR [facility]; Protocol Last Admin: 12/11/18 05:07 Dose: Not Given Labetalol HCl (Trandate Inj) 10 mg IV.PUSH Q30M PRN PRN Reason: SYS BP GREATER THAN 180 [facility] Last Admin: 12/08/18 16:32 Dose: 10 mg Lactulose (Lactulose Liq) 30 ml PO BID [facility] Last Admin: 12/11/18 08:34 Dose: 30 ml Magnesium Oxide (Mag-Ox) 800 mg PO UNSCH PRN PRN Reason: For Magnesium 1.2 - 1.6 mg/dL Miscellaneous Medication () 1 each OROPHARYNG 0000,0400,1200,1600 [facility] Last Admin: 12/11/18 04:32 Dose: 1 each Ondansetron HCl (Zofran Inj) 4 mg IV.PUSH Q6H PRN PRN Reason: NAUSEA OR VOMITING Polyethylene Glycol (Miralax) 17 gm PO BID [facility] Last Admin: 12/11/18 08:36 Dose: 17 gm Potassium Chloride (Kcl Liq) 40 meq PO UNSCH PRN PRN Reason: Potassium level 3.3-3.5 mEq/L Last Admin: 12/10/18 12:13 Dose: 40 meq Potassium Chloride (Kcl Liq) 40 meq PO UNSCH PRN PRN Reason: POTASSIUM LESS THAN 3.5 Last Admin: 12/08/18 08:05 Dose: 40 meq Potassium Phosphate (K-Phos Original) 2,000 mg PO UNSCH PRN PRN Reason: SEE LABEL COMMENTS Potassium Phosphate (K-Phos Original) 2,000 mg PO Q4H PRN PRN Reason: Phosphorus Less Than 2.5 mg/dL Senna/Docusate Sodium (Noelle-Colace) 1 tab PO BID [facility] Last Admin: 12/11/18 08:36 Dose: 1 tab Sodium Chloride (Ns Flush) 2 ml IV.FLUSH UNSCH PRN PRN Reason: FLUSH AFTER USING IV ACCESS Terbutaline Sulfate (Brethine Inj) 1 mg SQ UNSCH PRN PRN Reason: For Extravasation Allergies/Adverse Reactions: Allergies Allergy/AdvReac Type Severity Reaction Status Date / Time No Known Allergies Allergy Verified 09/21/18 15:52 Review of Systems All other systems reviewed negative except as stated in HPI Physical Exam Vital signs: Vital Signs 12/10/18 10:45 12/10/18 10:48 12/10/18 11:00 Temperature Pulse Rate 74 75 74 Respiratory Rate 14 14 14 Blood Pressure 101/51 L Pulse Oximetry 96 96 97 12/10/18 11:03 12/10/18 11:09 12/10/18 11:15 Temperature Pulse Rate 73 72 69 Respiratory Rate 14 14 17 Blood Pressure 113/56 L Pulse Oximetry 96 99 98 12/10/18 11:18 12/10/18 11:30 12/10/18 11:33 Temperature Pulse Rate 68 71 66 Respiratory Rate 17 17 18 Blood Pressure 118/58 L 133/66 Pulse Oximetry 99 97 99 12/10/18 11:45 12/10/18 11:48 12/10/18 12:00 Temperature Pulse Rate 67 66 66 Respiratory Rate 17 18 17 Blood Pressure 137/68 Pulse Oximetry 99 99 98 12/10/18 12:03 12/10/18 12:15 12/10/18 12:18 Temperature Pulse Rate 66 69 79 Respiratory Rate 18 14 14 Blood Pressure 144/70 H 157/78 H Pulse Oximetry 98 99 99 12/10/18 12:30 12/10/18 12:33 12/10/18 12:45 Temperature Pulse Rate 79 77 81 Respiratory Rate 8 L 8 L 10 L Blood Pressure 151/75 H Pulse Oximetry 98 98 99 12/10/18 12:48 12/10/18 13:00 12/10/18 13:03 Temperature Pulse Rate 81 84 85 Respiratory Rate 14 14 14 Blood Pressure 156/78 H 147/67 H Pulse Oximetry 98 98 98 12/10/18 13:15 12/10/18 13:18 12/10/18 13:30 Temperature Pulse Rate 87 87 89 Respiratory Rate 14 11 L 15 Blood Pressure 140/61 Pulse Oximetry 98 97 99 12/10/18 13:33 12/10/18 13:45 12/10/18 13:48 Temperature Pulse Rate 88 87 88 Respiratory Rate 15 15 12 Blood Pressure 150/69 H 145/67 H Pulse Oximetry 99 95 99 12/10/18 14:00 12/10/18 14:03 12/10/18 14:15 Temperature Pulse Rate 87 87 87 Respiratory Rate 15 15 15 Blood Pressure 140/65 Pulse Oximetry 99 100 97 12/10/18 14:18 12/10/18 14:30 12/10/18 14:33 Temperature Pulse Rate 86 84 85 Respiratory Rate 15 14 14 Blood Pressure 133/63 135/63 Pulse Oximetry 97 97 100 12/10/18 14:45 12/10/18 14:48 12/10/18 15:00 Temperature Pulse Rate 85 87 82 Respiratory Rate 15 15 14 Blood Pressure 139/66 Pulse Oximetry 98 98 100 12/10/18 15:03 12/10/18 15:06 12/10/18 15:15 Temperature Pulse Rate 82 82 80 Respiratory Rate 14 14 16 Blood Pressure 130/61 Pulse Oximetry 99 100 98 12/10/18 15:18 12/10/18 15:30 12/10/18 15:33 Temperature Pulse Rate 79 78 79 Respiratory Rate 20 20 14 Blood Pressure 131/59 L 128/60 Pulse Oximetry 97 100 100 12/10/18 15:45 12/10/18 15:48 12/10/18 16:00 Temperature 98.6 F Pulse Rate 82 83 82 Respiratory Rate 14 14 14 Blood Pressure 146/67 H Pulse Oximetry 97 99 100 12/10/18 16:03 12/10/18 16:15 12/10/18 16:18 Temperature Pulse Rate 82 93 H 93 H Respiratory Rate 13 17 19 Blood Pressure 160/77 H 153/70 H Pulse Oximetry 98 99 99 12/10/18 16:30 12/10/18 16:33 12/10/18 16:45 Temperature Pulse Rate 92 H 90 90 Respiratory Rate 14 14 17 Blood Pressure 138/65 Pulse Oximetry 97 96 97 0215/19 16:48 12/10/18 17:00 12/10/18 17:02 Temperature Pulse Rate 91 H 90 92 H Respiratory Rate 16 19 18 Blood Pressure 136/64 143/67 H Pulse Oximetry 97 96 97 12/10/18 17:15 12/10/18 17:30 12/10/18 17:45 Temperature Pulse Rate 92 H 86 89 Respiratory Rate 17 14 21 Blood Pressure Pulse Oximetry 97 96 97 12/10/18 18:00 12/10/18 18:02 12/10/18 18:15 Temperature Pulse Rate 88 87 83 Respiratory Rate 14 14 14 Blood Pressure 136/63 Pulse Oximetry 99 97 100 12/10/18 19:02 12/10/18 19:15 12/10/18 19:30 Temperature 99.8 F H Pulse Rate 79 77 77 Respiratory Rate 14 14 14 Blood Pressure 133/61 Pulse Oximetry 100 100 100 12/10/18 19:45 12/10/18 20:00 12/10/18 20:02 Temperature Pulse Rate 81 80 80 Respiratory Rate 14 14 14 Blood Pressure 146/69 H Pulse Oximetry 99 96 98 12/10/18 20:15 12/10/18 20:25 12/10/18 20:30 Temperature Pulse Rate 81 82 90 Respiratory Rate 14 14 15 Blood Pressure Pulse Oximetry 97 100 100 12/10/18 20:45 12/10/18 21:00 12/10/18 21:02 Temperature Pulse Rate 88 88 87 Respiratory Rate 16 18 16 Blood Pressure 150/70 H Pulse Oximetry 99 99 100 12/10/18 21:15 12/10/18 21:30 12/10/18 21:45 Temperature Pulse Rate 91 H 91 H 87 Respiratory Rate 16 23 20 Blood Pressure Pulse Oximetry 96 97 95 12/10/18 22:00 12/10/18 22:02 12/10/18 22:15 Temperature Pulse Rate 87 86 83 Respiratory Rate 20 19 17 Blood Pressure 122/60 Pulse Oximetry 98 99 99 12/10/18 22:30 12/10/18 22:45 12/10/18 23:00 Temperature Pulse Rate 83 83 82 Respiratory Rate 14 16 14 Blood Pressure Pulse Oximetry 99 100 99 12/10/18 23:02 12/10/18 23:15 12/10/18 23:30 Temperature Pulse Rate 80 85 79 Respiratory Rate 20 20 24 Blood Pressure 123/60 Pulse Oximetry 99 97 98 12/10/18 23:36 12/10/18 23:42 12/10/18 23:45 Temperature Pulse Rate 76 86 Respiratory Rate 14 22 17 Blood Pressure Pulse Oximetry 98 100 12/11/18 00:00 12/11/18 00:02 12/11/18 00:15 Temperature 99.0 F Pulse Rate 83 83 84 Respiratory Rate 21 21 24 Blood Pressure 133/61 Pulse Oximetry 97 98 96 12/11/18 00:30 12/11/18 00:45 12/11/18 01:00 Temperature Pulse Rate 84 86 84 Respiratory Rate 21 25 H 21 Blood Pressure Pulse Oximetry 97 96 96 12/11/18 01:02 12/11/18 01:15 12/11/18 01:30 Temperature Pulse Rate 84 84 82 Respiratory Rate 24 24 21 Blood Pressure 134/63 Pulse Oximetry 96 96 95 12/11/18 01:45 12/11/18 02:00 12/11/18 02:02 Temperature Pulse Rate 80 82 82 Respiratory Rate 25 H 21 21 Blood Pressure 157/73 H Pulse Oximetry 96 96 96 12/11/18 02:15 12/11/18 02:30 12/11/18 02:45 Temperature Pulse Rate 82 82 82 Respiratory Rate 21 21 21 Blood Pressure Pulse Oximetry 96 98 100 12/11/18 03:00 12/11/18 03:02 12/11/18 03:15 Temperature Pulse Rate 83 83 83 Respiratory Rate 21 21 19 Blood Pressure 161/77 H Pulse Oximetry 100 97 100 12/11/18 03:30 12/11/18 03:45 12/11/18 04:00 Temperature 99 F Pulse Rate 91 H 82 84 Respiratory Rate 23 21 21 Blood Pressure Pulse Oximetry 100 98 97 12/11/18 04:02 12/11/18 04:15 12/11/18 04:23 Temperature Pulse Rate 84 82 83 Respiratory Rate 21 21 19 Blood Pressure 162/80 H Pulse Oximetry 98 99 97 12/11/18 04:30 12/11/18 04:45 12/11/18 05:00 Temperature Pulse Rate 82 84 85 Respiratory Rate 21 21 22 Blood Pressure Pulse Oximetry 100 100 100 12/11/18 05:02 12/11/18 05:15 12/11/18 05:30 Temperature Pulse Rate 85 86 89 Respiratory Rate 21 20 14 Blood Pressure 160/77 H Pulse Oximetry 100 99 93 L 12/11/18 05:45 12/11/18 06:00 12/11/18 06:02 Temperature Pulse Rate 89 88 89 Respiratory Rate 20 19 21 Blood Pressure 176/81 H Pulse Oximetry 95 95 95 12/11/18 06:15 12/11/18 06:20 12/11/18 06:30 Temperature Pulse Rate 85 85 84 Respiratory Rate 33 H 18 15 Blood Pressure 162/74 H Pulse Oximetry 95 95 96 12/11/18 08:39 Temperature Pulse Rate 75 Respiratory Rate 25 H Blood Pressure Pulse Oximetry 96 Intake & Output 12/10/18 12/11/18 12/11/18 18:59 06:59 18:59 Intake Total 1595 / 1595 1020 / 1020 100 / 100 Output Total 250 / 250 Balance 1345 / 1345 1020 / 1020 100 / 100 Weight 83 kg Intake: IV 978 / 978 300 / 300 100 / 100 Diprivan 1000 mg/100 ml Inj 1, 100 / 100 100 / 100 100 / 100 000 mg In 100 ml @ 5 MCG/KG/MIN 2.436 mls/hr IV.CONT TITRATE PRN Rx#:[id number] NS Inj 1,000 ML @ 70 mls/hr IV. 678 / 678 CONT .[id number] [facility] Rx#:[id number] Unasyn Inj 3 GM In NS Inj 100 200 / 200 200 / 200 ML @ 200 mls/hr IV.SIG Q6H [facility] Rx#:[id number] Tube Feeding 557 / 557 720 / 720 Tube Irrigant 60 / 60 Output: Urine Amount (Catheter) 250 / 250 Condom 250 / 250 Other: # Voids 1 # Bowel Movements 0 Narrative: GENERAL: in NAD, on propofol SKIN: Warm and dry. HEAD: Atraumatic. Normocephalic. EYES: Pupils equal and round. ENT: No nasal bleeding or discharge. NECK: Trachea midline. No JVD. CARDIOVASCULAR: Regular rate and rhythm. RESPIRATORY: Intubated GASTROINTESTINAL: Abdomen soft, non-tender, nondistended. MUSCULOSKELETAL: Extremities without clubbing, cyanosis, NEUROLOGICAL: Intubated, off sedation, stuporous state, not following, OU sluggishly reactive pupils mild left gaze preference, not moving either upper extremity localizes left upper extremity, withdraws lower mainly left right Babinski reduced movement of right upper extremity PSYCHIATRIC: Calm - Constitutional no acute distress - Routine HEENT Exam Head: Present: normocephalic - Urinary Catheter Management Indwelling Urethral Catheter Cath placed during this visit: yes Reason for continuing: Hourly intake/output Insertion date: 12/07/18 Insertion time: 07:27 Condom Cath placed during this visit: yes, but has since been removed by the nurse Reason for continuing: Continue criteria not met Insertion date: 12/07/18 Removal date: 12/07/18 Removal time: 18:00 Objective Laboratory Results - last 24 hr 12/10/18 12/10/18 12/11/18 12:11 17:24 01:26 WBC RBC Hgb Hct MCV MCH MCHC RDW Plt Count MPV Neut % (Auto) Lymph % (Auto) [place] % (Auto) Eos % (Auto) Baso % (Auto) Neut # (Auto) Lymph # (Auto) [place] # (Auto) Eos # (Auto) Baso # (Auto) WBC Differential Differential Comment Sodium Potassium Chloride Carbon Dioxide Anion Gap BUN Creatinine Estimated GFR POC Glucose 143 H 216 H 241 H Random Glucose Calcium Phosphorus Magnesium 12/11/18 12/11/18 12/11/18 04:31 04:31 05:07 WBC 11.7 H RBC 4.36 L Hgb 13.0 Hct 38.9 L MCV 89.4 MCH 29.8 MCHC 33.3 RDW 15.4 Plt Count 208 MPV 10.1 Neut % (Auto) 71.6 H Lymph % (Auto) 14.0 [place] % (Auto) 10.7 H Eos % (Auto) 3.1 Baso % (Auto) 0.6 Neut # (Auto) 8.4 H Lymph # (Auto) 1.6 [place] # (Auto) 1.2 H Eos # (Auto) 0.4 Baso # (Auto) 0.1 WBC Differential . Differential Comment Auto diff final Sodium 146 H Potassium 3.4 L Chloride 113 H Carbon Dioxide 24.3 Anion Gap 9 BUN 14 Creatinine 0.70 Estimated GFR Greater than 89 POC Glucose 117 H Random Glucose 106 Calcium 7.9 L Phosphorus 2.3 L Magnesium 2.1 Microbiology 12/09/18 03:00 Gram Stain - Final Sputum - Endotracheal Sputum Culture - Preliminary gram negative rods 12/07/18 15:21 Aerobic Blood Culture - Preliminary Blood - Peripheral No growth in 3 days Anaerobic Blood Culture - Preliminary No growth in 3 days 12/07/18 15:26 Aerobic Blood Culture - Preliminary Blood - Peripheral No growth in 3 days Anaerobic Blood Culture - Preliminary No growth in 3 days Review/Management - Diagnosis (1) Acute ischemic left MCA stroke Code(s): I63.512 - Cerebral infarction due to unspecified occlusion or stenosis of left middle cerebral artery Status: Acute Current Visit: Yes (2) Left carotid artery occlusion Code(s): I65.22 - Occlusion and stenosis of left carotid artery Status: Acute Current Visit: Yes (3) Stroke Code(s): I63.9 - Cerebral infarction, unspecified Status: Acute Current Visit: Yes (4) Leukocytosis Code(s): D72.829 - Elevated white blood cell count, unspecified Status: Acute Current Visit: Yes (5) Pneumonia Code(s): J18.9 - Pneumonia, unspecified organism Status: Acute Current Visit : Yes (6) GI bleed Code(s): K92.2 - Gastrointestinal hemorrhage, unspecified Status: Acute Current Visit: Yes (7) Respiratory failure Code(s): J96.90 - Respiratory failure, unspecified, unspecified whether with hypoxia or hypercapnia Status: Acute Current Visit: Yes - Review/Management Plan: Status post left carotid stent placement, mechanical thromboembolectomy Etiology would include aortic arch athero emboli, versus A. fib MRI brain scan reviewed moderate left MCA territory strokes 2D echo showing EF proximal 45% with mild pericardial effusion 12/09/2018 CT brain stable Recommendation Limited exam even off propofol, very somnolent Obtain follow-up CT brain Aspirin, statin Extubation per critical care Discussed with RN Follow exam (3) Stroke Qualifiers: CVA mechanism: occlusion Precerebral and cerebral artery: middle cerebral artery Laterality of affected vessel: left Qualified Code(s): I63.512 - Cerebral infarction due to unspecified occlusion or stenosis of left middle cerebral artery (4) Leukocytosis Qualifiers: Leukocytosis type: unspecified Qualified Code(s): D72.829 - Elevated white blood cell count, unspecified (5) Pneumonia Qualifiers: Pneumonia type: due to unspecified organism Laterality: left Lung location: lower lobe of lung Qualified Code(s): J18.1 - Lobar pneumonia, unspecified organism (6) GI bleed Qualifiers: GI bleed type/associated pathology: unspecified gastrointestinal hemorrhage type Qualified Code(s): K92.2 - Gastrointestinal hemorrhage, unspecified (7) Respiratory failure Qualifiers: Chronicity: acute Respiratory failure complication: unspecified whether with hypoxia or hypercapnia Qualified Code(s): J96.00 - Acute respiratory failure, unspecified whether with hypoxia or hypercapnia
[2018-12-11] MEDS: hydrALAZINE HCl Inj 20 MG/ML Vial IV.PUSH PRN ×2 (11:17→18:09)
[2018-12-11] MEDS: Labetalol HCl Inj 20 MG/4 ML Vial IV.PUSH PRN (22:40)
[2018-12-12] MEDS: Ampicillin/Sulbactam Inj 3 GM in Sodium Chloride 0.9% Inj 100 ML IV.SIG SCH ×2 (00:50→05:56)
[2018-12-12] MEDS: Sod Chloride 0.9% Inj 1,000 ML IV.CONT SCH (00:53)
[2018-12-12] MEDS: hydrALAZINE HCl Inj 20 MG/ML Vial IV.PUSH PRN ×3 (00:55→22:19)
[2018-12-12] MEDS: Oral Hygiene Kit OROPHARYNG SCH ×4 (00:58→17:07)
[2018-12-12] MEDS: Insulin NovoLIN Regular Correctional Sugar Inj SQ SCH ×4 (01:04→18:27)
[2018-12-12] MEDS: Heparin - SQ 10,000 UNITS/ML Vial SQ SCH ×3 (05:10→21:00)
[2018-12-12] MEDS: Chlorhexidine Gluconate 2% 1 Pack (2 Cloths) TOPICAL SCH (05:10)
[2018-12-12] MEDS: Artificial Tears Opth Drops 15 ML Bottle EACH EYE SCH ×4 (05:11→22:22)
[2018-12-12 05:41] LABS: Baso # (Auto) 0.1 th/mm3 (0.0-0.2); Baso % (Auto) 0.5 % (0.0-2.0); Eos # (Auto) 0.2 th/mm3 (0.0-0.4); Eos % (Auto) 1.4 % (0.0-4.0); Hematocrit 38.9 % (39.0-51.0); Lymph # (Auto) 1.8 th/mm3 (1.0-4.8); Mean Corpuscular HGB Conc 33.4 % (32.0-36.0); Mean Corpuscular Hemoglobin 30.4 pg (27.0-34.0); Mean Corpuscular Volume 91.3 fL (80.0-100.0); Mean Platelet Volume 10.1 fL (7.0-11.0); Mono % (Auto) 14.1 % (0.0-8.0); Platelet Count 217 th/mm3 (150-450); Red Blood Count 4.26 mil/mm3 (4.50-5.90); Red Cell Distribution Width 15.2 % (11.6-17.2); White Blood Count 14.1 th/mm3 (4.0-11.0)
[2018-12-12 06:00] LABS: Anion Gap 7 meq/L (5-15); Blood Urea Nitrogen 11 mg/dL (7-18); Calcium 7.6 mg/dL (8.5-10.1); Carbon Dioxide 26.2 meq/L (21.0-32.0); Chloride 110 meq/L (98-107); Glomerular Filtration Rate Greater Than 89 mL/min (>89); Glucose,Random 131 mg/dL (74-106); Magnesium 1.9 mg/dL (1.5-2.5); Phosphorus 2.6 mg/dL (2.5-4.9); Potassium 3.7 meq/L (3.5-5.1); Sodium 143 meq/L (136-145)
[2018-12-12] MEDS: Chlorhexidine 0.12% Oral Kit 15 ML UDC OROPHARYNG SCH ×2 (09:11→20:53)
[2018-12-12] MEDS: Famotidine PF Inj 20 MG/2 ML Vial IV.PUSH SCH ×2 (09:11→20:53)
[2018-12-12] MEDS: Aspirin 325 MG Tablet PO SCH (09:11)
[2018-12-12] MEDS: Polyethylene Glycol 3350 17 GM Packet PO SCH ×2 (09:11→20:53)
[2018-12-12] MEDS: Senna/Docusate Sodium 8.6/50 MG Tablet PO SCH ×2 (09:12→20:53)
--- NOTE | 2018-12-12 10:31 | P.PNCC ---
Subjective Subjective Remarks/Hospital Course: Hospital Course: 73yM last seen normal reports of 1:30am by notes found written by him presented with acute altered mentation and aphasia. initial NIHSS 11 --> 8, but he clinically decompensated and required intubation for a rapidly declining mental status. CT head negative for acute bleed. CTA head/neck demonstrates acute left ICA occlusion. taken emergently for interventional thrombectomy. arrives from embolectomy intubated, sedated. no additional information available from the patient. ROS unobtainable. Subjective: 12/08: following commands. passing SBT. MRI with left MCA distribution infarct, no hemorrhagic conversion. 12/09: reintubated overnight for respiratory failure. now has LLL consolidation, likely aspiration related. repeat head CT shows evolving stroke, no new hemorrhage. 12/10: no changes. awaiting cerebral edema to resolve prior to second attempt at extubation. 12/11: copious secretions are preventing successful weaning attempts. sputum growing GNRs, speciation to follow. mental status remains the same. 12/12: sputum growing polymicrobial sample, consistent with aspiration. will narrow therapy to Levaquin. still following commands. failing SBT for secretions. long discussion yesterday with sister regarding overall prognosis, current medical plan, and potential future anticipated plan of care. Objective Vital Signs / I&O: Vital Signs 12/11/18 10:15 12/11/18 10:30 12/11/18 10:45 Temperature Pulse Rate 90 91 H 92 H Respiratory Rate 23 18 14 Blood Pressure Pulse Oximetry 95 93 L 93 L 12/11/18 11:00 12/11/18 11:02 12/11/18 11:15 Temperature Pulse Rate 90 90 86 Respiratory Rate 14 15 22 Blood Pressure 183/84 H Pulse Oximetry 94 L 94 L 94 L 12/11/18 11:18 12/11/18 11:20 12/11/18 11:30 Temperature Pulse Rate 92 H 94 H 95 H Respiratory Rate 22 20 22 Blood Pressure 185/86 H 178/83 H Pulse Oximetry 95 94 L 94 L 12/11/18 11:45 12/11/18 12:00 12/11/18 12:02 Temperature 36.9 C Pulse Rate 86 86 86 Respiratory Rate 14 15 19 Blood Pressure 116/56 L Pulse Oximetry 94 L 94 L 94 L 12/11/18 12:15 12/11/18 12:30 12/11/18 12:33 Temperature Pulse Rate 87 87 88 Respiratory Rate 16 16 21 Blood Pressure Pulse Oximetry 94 L 94 L 96 12/11/18 12:41 12/11/18 12:45 12/11/18 13:00 Temperature Pulse Rate 96 H 86 95 H Respiratory Rate 14 23 Blood Pressure Pulse Oximetry 95 96 12/11/18 13:02 12/11/18 13:15 12/11/18 13:30 Temperature Pulse Rate 96 H 95 H 95 H Respiratory Rate 22 22 23 Blood Pressure 161/75 H Pulse Oximetry 96 93 L 92 L 12/11/18 13:45 12/11/18 14:00 12/11/18 14:02 Temperature Pulse Rate 93 H 99 H 98 H Respiratory Rate 16 21 25 H Blood Pressure 167/72 H Pulse Oximetry 95 94 L 94 L 12/11/18 14:15 12/11/18 14:30 12/11/18 14:44 Temperature Pulse Rate 99 H 106 H 97 H Respiratory Rate 25 H 35 H Blood Pressure Pulse Oximetry 88 L 98 12/11/18 14:45 12/11/18 15:00 12/11/18 15:02 Temperature Pulse Rate 97 H 91 H 91 H Respiratory Rate 23 16 19 Blood Pressure 139/63 Pulse Oximetry 90 L 91 L 91 L 12/11/18 15:15 12/11/18 15:30 12/11/18 15:45 Temperature Pulse Rate 100 H 95 H 89 Respiratory Rate 24 19 21 Blood Pressure Pulse Oximetry 96 93 L 90 L 12/11/18 16:00 12/11/18 16:02 12/11/18 16:15 Temperature Pulse Rate 98 H 107 H 99 H Respiratory Rate 25 H 26 H 23 Blood Pressure 187/89 H Pulse Oximetry 90 L 92 L 90 L 12/11/18 16:30 12/11/18 16:45 12/11/18 16:54 Temperature Pulse Rate 96 H 103 H 98 H Respiratory Rate 19 26 H Blood Pressure Pulse Oximetry 91 L 95 12/11/18 17:00 12/11/18 17:02 12/11/18 17:15 Temperature Pulse Rate 103 H 104 H 101 H Respiratory Rate 20 25 H 23 Blood Pressure 187/88 H Pulse Oximetry 94 L 93 L 93 L 12/11/18 17:27 12/11/18 17:30 12/11/18 17:45 Temperature Pulse Rate 109 H 110 H Respiratory Rate 27 H 27 H 25 H Blood Pressure Pulse Oximetry 94 L 94 L 92 L 12/11/18 18:00 12/11/18 18:02 12/11/18 18:03 Temperature Pulse Rate 111 H 112 H 112 H Respiratory Rate 26 H 26 H 27 H Blood Pressure 205/98 H 202/91 H Pulse Oximetry 92 L 91 L 91 L 12/11/18 18:11 12/11/18 18:15 12/11/18 18:30 Temperature Pulse Rate 109 H 107 H 108 H Respiratory Rate 24 23 23 Blood Pressure 186/86 H Pulse Oximetry 91 L 90 L 93 L 12/11/18 18:45 12/11/18 18:46 12/11/18 18:54 Temperature Pulse Rate 112 H 112 H 110 H Respiratory Rate 20 26 H Blood Pressure 196/95 H 188/92 H Pulse Oximetry 98 98 12/11/18 19:00 12/11/18 19:02 12/11/18 19:15 Temperature Pulse Rate 110 H 110 H 110 H Respiratory Rate 23 22 24 Blood Pressure 175/82 H 169/80 H Pulse Oximetry 90 L 90 L 90 L 12/11/18 19:30 12/11/18 19:45 12/11/18 20:00 Temperature 37.3 C Pulse Rate 114 H 120 H 118 H Respiratory Rate 23 25 H 22 Blood Pressure Pulse Oximetry 92 L 91 L 90 L 12/11/18 20:02 12/11/18 20:15 12/11/18 20:24 Temperature Pulse Rate 118 H 114 H Respiratory Rate 22 21 22 Blood Pressure 187/86 H 163/77 H Pulse Oximetry 91 L 90 L 92 L 12/11/18 20:30 12/11/18 20:45 12/11/18 21:00 Temperature Pulse Rate 115 H 115 H 112 H Respiratory Rate 27 H 24 23 Blood Pressure Pulse Oximetry 92 L 92 L 92 L 12/11/18 21:02 12/11/18 21:15 12/11/18 21:30 Temperature Pulse Rate 110 H 115 H 112 H Respiratory Rate 22 25 H 23 Blood Pressure 177/81 H Pulse Oximetry 91 L 94 L 92 L 12/11/18 21:45 12/11/18 22:00 12/11/18 22:02 Temperature Pulse Rate 109 H 109 H 108 H Respiratory Rate 24 25 H 22 Blood Pressure 196/88 H Pulse Oximetry 95 94 L 94 L 12/11/18 22:04 12/11/18 22:06 12/11/18 22:15 Temperature Pulse Rate 107 H 109 H 108 H Respiratory Rate 22 24 24 Blood Pressure 201/94 H 195/92 H Pulse Oximetry 94 L 95 92 L 12/11/18 22:30 12/11/18 22:45 12/11/18 22:50 Temperature Pulse Rate 108 H 96 H 94 H Respiratory Rate 22 23 22 Blood Pressure 172/81 H Pulse Oximetry 90 L 90 L 90 L 12/11/18 23:00 12/11/18 23:02 12/11/18 23:15 Temperature Pulse Rate 95 H 95 H 98 H Respiratory Rate 22 20 23 Blood Pressure 171/83 H Pulse Oximetry 91 L 90 L 91 L 12/11/18 23:30 12/11/18 23:40 12/11/18 23:45 Temperature Pulse Rate 98 H 98 H 99 H Respiratory Rate 21 23 23 Blood Pressure Pulse Oximetry 90 L 94 L 95 12/12/18 00:00 12/12/18 00:02 12/12/18 00:15 Temperature Pulse Rate 96 H 96 H 94 H Respiratory Rate 22 22 20 Blood Pressure 183/84 H Pulse Oximetry 96 95 95 12/12/18 00:30 12/12/18 00:45 12/12/18 01:00 Temperature Pulse Rate 94 H 93 H 95 H Respiratory Rate 21 20 21 Blood Pressure Pulse Oximetry 94 L 93 L 92 L 12/12/18 01:02 12/12/18 01:15 12/12/18 01:30 Temperature Pulse Rate 98 H 103 H 105 H Respiratory Rate 21 22 22 Blood Pressure 173/80 H Pulse Oximetry 92 L 90 L 92 L 12/12/18 01:45 12/12/18 02:00 12/12/18 02:02 Temperature 36.7 C Pulse Rate 108 H 105 H 105 H Respiratory Rate 25 H 22 24 Blood Pressure 167/74 H Pulse Oximetry 93 L 94 L 92 L 12/12/18 02:15 12/12/18 02:30 12/12/18 02:45 Temperature Pulse Rate 106 H 100 H 101 H Respiratory Rate 22 18 21 Blood Pressure Pulse Oximetry 94 L 94 L 92 L 12/12/18 03:00 12/12/18 03:02 12/12/18 03:15 Temperature Pulse Rate 100 H 100 H 101 H Respiratory Rate 20 19 20 Blood Pressure 161/71 H Pulse Oximetry 92 L 91 L 93 L 12/12/18 03:30 12/12/18 03:45 12/12/18 03:54 Temperature Pulse Rate 99 H 97 H Respiratory Rate 19 21 20 Blood Pressure Pulse Oximetry 93 L 92 L 93 L 12/12/18 04:00 12/12/18 04:02 12/12/18 04:15 Temperature 37.4 C Pulse Rate 101 H 101 H 104 H Respiratory Rate 22 18 27 H Blood Pressure 168/77 H Pulse Oximetry 91 L 92 L 91 L 12/12/18 04:30 12/12/18 04:45 12/12/18 05:00 Temperature Pulse Rate 100 H 101 H 108 H Respiratory Rate 21 22 21 Blood Pressure Pulse Oximetry 91 L 90 L 96 12/12/18 05:02 12/12/18 05:15 12/12/18 05:30 Temperature Pulse Rate 106 H 96 H 99 H Respiratory Rate 14 15 15 Blood Pressure 178/79 H Pulse Oximetry 96 93 L 92 L 12/12/18 05:45 12/12/18 06:00 12/12/18 06:02 Temperature 36.9 C Pulse Rate 96 H 94 H 95 H Respiratory Rate 17 19 19 Blood Pressure 160/73 H Pulse Oximetry 94 L 92 L 94 L 12/12/18 06:15 12/12/18 06:30 12/12/18 06:45 Temperature Pulse Rate 93 H 98 H 96 H Respiratory Rate 23 19 24 Blood Pressure Pulse Oximetry 93 L 95 92 L 12/12/18 07:00 12/12/18 07:02 12/12/18 07:15 Temperature Pulse Rate 94 H 96 H 93 H Respiratory Rate 18 21 14 Blood Pressure 161/79 H Pulse Oximetry 94 L 93 L 93 L 12/12/18 07:30 12/12/18 07:45 12/12/18 08:00 Temperature 37.6 C H Pulse Rate 95 H 92 H 96 H Respiratory Rate 21 14 21 Blood Pressure Pulse Oximetry 91 L 92 L 93 L 12/12/18 08:02 12/12/18 08:15 12/12/18 08:18 Temperature Pulse Rate 96 H 92 H Respiratory Rate 20 19 Blood Pressure 178/80 H Pulse Oximetry 90 L 92 L 91 L 12/12/18 08:22 12/12/18 08:30 12/12/18 08:45 Temperature Pulse Rate 92 H 89 87 Respiratory Rate 14 14 Blood Pressure Pulse Oximetry 94 L 93 L 12/12/18 09:00 12/12/18 09:02 12/12/18 09:07 Temperature Pulse Rate 86 85 90 Respiratory Rate 14 14 30 H Blood Pressure 150/70 H Pulse Oximetry 94 L 94 L 97 12/12/18 09:15 Temperature Pulse Rate 102 H Respiratory Rate 28 H Blood Pressure Pulse Oximetry 98 Intake & Output 12/11/18 12/12/18 12/12/18 18:59 06:59 18:59 Intake Total 2420 / 2420 983 / 983 Output Total 150 / 150 650 / 650 Balance 2270 / 2270 333 / 333 Weight 83.4 kg Intake: IV 1400 / 1400 300 / 300 Diprivan 1000 mg/100 ml Inj 1, 100 / 100 000 mg In 100 ml @ 5 MCG/KG/MIN 2.436 mls/hr IV.CONT TITRATE PRN Rx#:[id number] NS Inj 1,000 ML @ 70 mls/hr IV. 1000 / 1000 CONT .[id number] [facility] Rx#:[id number] Unasyn Inj 3 GM In NS Inj 100 100 / 100 300 / 300 ML @ 200 mls/hr IV.SIG Q6H [facility] Rx#:[id number] KCl 20 mEq Premix Inj 20 meq In 200 / 200 100 ml @ 50 mls/hr IV.SIG Q2H PRN Rx#:[id number] Tube Feeding 660 / 660 563 / 563 Tube Irrigant 160 / 160 120 / 120 Water Bolus Amount 200 / 200 Output: Urine Amount (Catheter) 150 / 150 650 / 650 Condom 150 / 150 650 / 650 Gastric Drainage 0 / 0 Orogastric Tube 0 / 0 Other: # Voids 2 # Incontinent Voids 0 Date of Last Bowel Movement 12/11/18 12/11/18 # Bowel Movements 2 2 # Incontinent Bowel Movements 2 2 Result Diagrams: 12/12/18 04:45 12/12/18 04:45 Objective Remarks: GENERAL: Elderly male, lying in bed, intubated, sedated, critically ill HEENT: Normocephalic. Atraumatic. Pupils equal, round, reactive, conjugate. Mucous membranes are moist NECK: Trachea is midline. There is no JVD. CHEST: Equal chest rise. PRVC. fio2 40%. thick secretions. CARDIOVASCULAR: Normal rate, regular rhythm. sinus. ABDOMEN: Soft, nontender, nondistended. No guarding. MUSCULOSKELETAL: Pulses 2+. No peripheral edema. NEUROLOGICAL: RASS -4. withdraws x 4. does not follow commands. Assessment and Plan - Assessment and Plan Plan: Assessment: 73yM with acute left ICA occlusion and new acute CVA complicated by respiratory failure. recurrent respiratory failure likely secondary to CVA, hypopharyngeal dysfunction, dysphagia/dysarthria. Unclear if he will require tracheostomy for further progress. would likely need to have at least a few more days for evolving stroke and edema to improve and then trial additional extubation, and if fails, will need trach to further progress his care. critically ill with recurrent respiratory failure and now aspiration pneumonia by CXR. secretions remain a problem- added levsin yesterday. will continue to work with daily SBTs. Acute CVA acute left ICA occlusion Acute encephalopathy - s/p mechanical thrombectomy 12/07 in IR, successful - frequent neuro checks - PT/OT/ST - ASA - DVT prophylaxis - neurology consult - lipids, a1c - statin - 2d echo: EF 45% - liberalize sbp goals per neurology: normotension. - phenylephrine to keep appropriate cerebral perfusion Acute hypoxic and hypercarbic respiratory failure- recurrent - vent bundle - hob elevated - nebs - aggressive pulmonary toilet - wean fio2 for goal spo2 > 90% - extubated 12/08, reintubated 12/09 for respiratory failure, inability to manage secretions - continue to attempt SBTs. if he fails second trial of extubation, will need tracheostomy Aspiration pneumonia Gram negative rods- sputum - has been inpatient < 72h and at home prior - change to levaquin 750mg iv q24h - f/u sensitivity of staph. hold on vancomycin for now. - sputum culture dispo: remain in ICU. critically ill with new aspiration pneumonia, recurrent respiratory failure, inability to remain off life support.
--- NOTE | 2018-12-12 11:07 | P.PNNEU ---
Subjective Subjective Comments: No acute events Active Medications: Active Medications Acetaminophen (Tylenol) 650 mg PO Q6H PRN PRN Reason: TEMPERATURE > 101 F Albuterol (Duoneb Neb (Prn)) 1 ampul NEB Q2HR NEB PRN PRN Reason: SHORTNESS OF BREATH Last Admin: 12/12/18 09:05 Dose: 1 ampul Artificial Tears (Tears Naturale Opth Drops) 1 drop EACH EYE Q6H [facility] Last Admin: 12/12/18 05:11 Dose: Not Given Aspirin (Aspirin) 325 mg PO DAILY [facility] Last Admin: 12/12/18 09:11 Dose: 325 mg Atorvastatin Calcium (Lipitor) 80 mg PO DAILY [facility] Last Admin: 12/12/18 09:11 Dose: 80 mg Bisacodyl (Dulcolax Supp) 10 mg RECTAL DAILY PRN PRN Reason: if no BM in last 24h Chlorhexidine Gluconate (Peridex 0.12% Oral Kit) 15 ml OROPHARYNG BID@0800, 2000 [facility] Last Admin: 12/12/18 09:11 Dose: 15 ml Chlorhexidine Gluconate (Chlorhexidine 2% Cloth) 3 pack TOPICAL DAILY@0400 [facility] Stop: 12/13/18 03:59 Last Admin: 12/12/18 05:10 Dose: 3 pack Chlorhexidine Gluconate (Chlorhexidine 2% Cloth) 3 pack TOPICAL DAILY@0400 PRN PRN Reason: Extra cloth needed Stop: 12/13/18 03:59 Dextrose (D50w Vial) 50 ml IV.PUSH UNSCH PRN PRN Reason: PER HYPOGLYCEMIA PROTOCOL Famotidine (Pepcid Pf Inj) 20 mg IV.PUSH Q12HR [facility] Last Admin: 12/12/18 09:11 Dose: 20 mg Glucagon (Glucagon Inj) 1 mg OTHER PRN PRN PRN Reason: for Hypoglycemia Protocol Heparin Sodium (Porcine) (Heparin Inj) 5,000 units SQ Q8HR [facility] Last Admin: 12/12/18 05:10 Dose: 5,000 units Hydralazine HCl (Apresoline Inj) 10 mg IV.PUSH Q30M PRN PRN Reason: sbp > 180 Last Admin: 12/12/18 00:55 Dose: 10 mg Hyoscyamine (Levsin) 0.25 mg PO Q4H PRN PRN Reason: secretions Last Admin: 12/11/18 12:29 Dose: 0.25 mg Pantoprazole Sodium 80 mg/ (Sodium Chloride) 100 mls @ 10 mls/hr IV.CONT CONT LA Magnesium Sulfate 4 gm/ Sodium (Chloride) 100 mls @ 50 mls/hr IV.SIG UNSCH PRN PRN Reason: For Magnesium 0.9 - 1.1 mg/dL Magnesium Sulfate 2 gm/ Sodium (Chloride) 100 mls @ 50 mls/hr IV.SIG UNSCH PRN PRN Reason: For Magnesium 1.2 - 1.6 mg/dL Potassium Chloride (Kcl 40 Meq Premix Inj) 40 meq in 100 mls @ 25 mls/hr IV.SIG Q2H PRN PRN Reason: For Potassium 2.8 - 3.2 mEq/L Potassium Chloride (Kcl 20 Meq Premix Inj) 20 meq in 100 mls @ 50 mls/hr IV.SIG Q2H PRN PRN Reason: For Potassium 3.3 - 3.5 mEq/L Last Infusion: 12/11/18 13:30 Dose: Infused Potassium Chloride (Kcl 40 Meq Premix Inj) 40 meq in 100 mls @ 25 mls/hr IV.SIG UNSCH PRN PRN Reason: For Potassium 3.3 - 3.5 mEq/L Potassium Chloride (Kcl 20 Meq Premix Inj) 20 meq in 100 mls @ 50 mls/hr IV.SIG Q2H PRN PRN Reason: For Potassium 2.8 - 3.2 mEq/L Last Infusion: 12/08/18 11:09 Dose: Infused Potassium Phosphate 30 mmol/ (Sodium Chloride) 260 mls @ 42 mls/hr IV.SIG UNSCH PRN PRN Reason: SEE LABEL COMMENTS Last Admin: 12/09/18 08:19 Dose: 42 mls/hr Sodium Phosphate 30 mmol/ (Sodium Chloride) 260 mls @ 42 mls/hr IV.SIG UNSCH PRN PRN Reason: For Phosphorus < 2.5 mg/dL Propofol (Diprivan 1000 Mg/100 Ml Inj) 1,000 mg in 100 mls @ 2.436 mls/hr IV.CONT TITRATE PRN; Protocol PRN Reason: Per Protocol Last Titration: 12/11/18 13:39 Dose: 0 mcg/kg/min, 0 mls/hr Levofloxacin/Dextrose (Levaquin 750 Mg Premix Inj) 150 mls @ 100 mls/hr IV.SIG Q24H [place] Stop: 12/19/18 10:59 Insulin Human Regular (Novolin R Correctional Sugar Inj) 0 units SQ Q6HR [facility]; Protocol Last Admin: 12/12/18 05:56 Dose: Not Given Labetalol HCl (Trandate Inj) 10 mg IV.PUSH Q30M PRN PRN Reason: SYS BP GREATER THAN 180 [facility] Last Admin: 12/11/18 22:40 Dose: 10 mg Lactulose (Lactulose Liq) 30 ml PO BID [facility] Last Admin: 12/12/18 09:11 Dose: 30 ml Magnesium Oxide (Mag-Ox) 800 mg PO UNSCH PRN PRN Reason: For Magnesium 1.2 - 1.6 mg/dL Miscellaneous Medication () 1 each OROPHARYNG 0000,0400,1200,1600 [facility] Last Admin: 12/12/18 05:10 Dose: 1 each Ondansetron HCl (Zofran Inj) 4 mg IV.PUSH Q6H PRN PRN Reason: NAUSEA OR VOMITING Polyethylene Glycol (Miralax) 17 gm PO BID [facility] Last Admin: 12/12/18 09:11 Dose: 17 gm Potassium Chloride (Kcl Liq) 40 meq PO UNSCH PRN PRN Reason: Potassium level 3.3-3.5 mEq/L Last Admin: 12/10/18 12:13 Dose: 40 meq Potassium Chloride (Kcl Liq) 40 meq PO UNSCH PRN PRN Reason: POTASSIUM LESS THAN 3.5 Last Admin: 12/08/18 08:05 Dose: 40 meq Potassium Phosphate (K-Phos Original) 2,000 mg PO UNSCH PRN PRN Reason: SEE LABEL COMMENTS Potassium Phosphate (K-Phos Original) 2,000 mg PO Q4H PRN PRN Reason: Phosphorus Less Than 2.5 mg/dL Senna/Docusate Sodium (Noelle-Colace) 1 tab PO BID [facility] Last Admin: 12/12/18 09:12 Dose: 1 tab Sodium Chloride (Ns Flush) 2 ml IV.FLUSH UNSCH PRN PRN Reason: FLUSH AFTER USING IV ACCESS Allergies/Adverse Reactions: Allergies Allergy/AdvReac Type Severity Reaction Status Date / Time No Known Allergies Allergy Verified 09/21/18 15:52 Review of Systems unobtainable due to endotracheal tube, unobtainable due to mental condition Physical Exam Vital signs: Vital Signs 12/11/18 11:15 12/11/18 11:18 12/11/18 11:20 Temperature Pulse Rate 86 92 H 94 H Respiratory Rate 22 22 20 Blood Pressure 185/86 H 178/83 H Pulse Oximetry 94 L 95 94 L 12/11/18 11:30 12/11/18 11:45 12/11/18 12:00 Temperature 98.5 F Pulse Rate 95 H 86 86 Respiratory Rate 22 14 15 Blood Pressure Pulse Oximetry 94 L 94 L 94 L 12/11/18 12:02 12/11/18 12:15 12/11/18 12:30 Temperature Pulse Rate 86 87 87 Respiratory Rate 19 16 16 Blood Pressure 116/56 L Pulse Oximetry 94 L 94 L 94 L 12/11/18 12:33 12/11/18 12:41 12/11/18 12:45 Temperature Pulse Rate 88 96 H 86 Respiratory Rate 21 14 Blood Pressure Pulse Oximetry 96 95 12/11/18 13:00 12/11/18 13:02 12/11/18 13:15 Temperature Pulse Rate 95 H 96 H 95 H Respiratory Rate 23 22 22 Blood Pressure 161/75 H Pulse Oximetry 96 96 93 L 12/11/18 13:30 12/11/18 13:45 12/11/18 14:00 Temperature Pulse Rate 95 H 93 H 99 H Respiratory Rate 23 16 21 Blood Pressure Pulse Oximetry 92 L 95 94 L 12/11/18 14:02 12/11/18 14:15 12/11/18 14:30 Temperature Pulse Rate 98 H 99 H 106 H Respiratory Rate 25 H 25 H 35 H Blood Pressure 167/72 H Pulse Oximetry 94 L 88 L 98 12/11/18 14:44 12/11/18 14:45 12/11/18 15:00 Temperature Pulse Rate 97 H 97 H 91 H Respiratory Rate 23 16 Blood Pressure Pulse Oximetry 90 L 91 L 12/11/18 15:02 12/11/18 15:15 12/11/18 15:30 Temperature Pulse Rate 91 H 100 H 95 H Respiratory Rate 19 24 19 Blood Pressure 139/63 Pulse Oximetry 91 L 96 93 L 12/11/18 15:45 12/11/18 16:00 12/11/18 16:02 Temperature Pulse Rate 89 98 H 107 H Respiratory Rate 21 25 H 26 H Blood Pressure 187/89 H Pulse Oximetry 90 L 90 L 92 L 12/11/18 16:15 12/11/18 16:30 12/11/18 16:45 Temperature Pulse Rate 99 H 96 H 103 H Respiratory Rate 23 19 26 H Blood Pressure Pulse Oximetry 90 L 91 L 95 12/11/18 16:54 12/11/18 17:00 12/11/18 17:02 Temperature Pulse Rate 98 H 103 H 104 H Respiratory Rate 20 25 H Blood Pressure 187/88 H Pulse Oximetry 94 L 93 L 12/11/18 17:15 12/11/18 17:27 12/11/18 17:30 Temperature Pulse Rate 101 H 109 H Respiratory Rate 23 27 H 27 H Blood Pressure Pulse Oximetry 93 L 94 L 94 L 12/11/18 17:45 12/11/18 18:00 12/11/18 18:02 Temperature Pulse Rate 110 H 111 H 112 H Respiratory Rate 25 H 26 H 26 H Blood Pressure 205/98 H Pulse Oximetry 92 L 92 L 91 L 12/11/18 18:03 12/11/18 18:11 12/11/18 18:15 Temperature Pulse Rate 112 H 109 H 107 H Respiratory Rate 27 H 24 23 Blood Pressure 202/91 H 186/86 H Pulse Oximetry 91 L 91 L 90 L 12/11/18 18:30 12/11/18 18:45 12/11/18 18:46 Temperature Pulse Rate 108 H 112 H 112 H Respiratory Rate 23 20 26 H Blood Pressure 196/95 H 188/92 H Pulse Oximetry 93 L 98 98 12/11/18 18:54 12/11/18 19:00 12/11/18 19:02 Temperature Pulse Rate 110 H 110 H 110 H Respiratory Rate 23 22 Blood Pressure 175/82 H 169/80 H Pulse Oximetry 90 L 90 L 12/11/18 19:15 12/11/18 19:30 12/11/18 19:45 Temperature Pulse Rate 110 H 114 H 120 H Respiratory Rate 24 23 25 H Blood Pressure Pulse Oximetry 90 L 92 L 91 L 12/11/18 20:00 12/11/18 20:02 12/11/18 20:15 Temperature 99.1 F Pulse Rate 118 H 118 H 114 H Respiratory Rate 22 22 21 Blood Pressure 187/86 H 163/77 H Pulse Oximetry 90 L 91 L 90 L 12/11/18 20:24 12/11/18 20:30 12/11/18 20:45 Temperature Pulse Rate 115 H 115 H Respiratory Rate 22 27 H 24 Blood Pressure Pulse Oximetry 92 L 92 L 92 L 12/11/18 21:00 12/11/18 21:02 12/11/18 21:15 Temperature Pulse Rate 112 H 110 H 115 H Respiratory Rate 23 22 25 H Blood Pressure 177/81 H Pulse Oximetry 92 L 91 L 94 L 12/11/18 21:30 12/11/18 21:45 12/11/18 22:00 Temperature Pulse Rate 112 H 109 H 109 H Respiratory Rate 23 24 25 H Blood Pressure Pulse Oximetry 92 L 95 94 L 12/11/18 22:02 12/11/18 22:04 12/11/18 22:06 Temperature Pulse Rate 108 H 107 H 109 H Respiratory Rate 22 22 24 Blood Pressure 196/88 H 201/94 H 195/92 H Pulse Oximetry 94 L 94 L 95 12/11/18 22:15 12/11/18 22:30 12/11/18 22:45 Temperature Pulse Rate 108 H 108 H 96 H Respiratory Rate 24 22 23 Blood Pressure Pulse Oximetry 92 L 90 L 90 L 12/11/18 22:50 12/11/18 23:00 12/11/18 23:02 Temperature Pulse Rate 94 H 95 H 95 H Respiratory Rate 22 22 20 Blood Pressure 172/81 H 171/83 H Pulse Oximetry 90 L 91 L 90 L 12/11/18 23:15 12/11/18 23:30 12/11/18 23:40 Temperature Pulse Rate 98 H 98 H 98 H Respiratory Rate 23 21 23 Blood Pressure Pulse Oximetry 91 L 90 L 94 L 12/11/18 23:45 12/12/18 00:00 12/12/18 00:02 Temperature Pulse Rate 99 H 96 H 96 H Respiratory Rate 23 22 22 Blood Pressure 183/84 H Pulse Oximetry 95 96 95 12/12/18 00:15 12/12/18 00:30 12/12/18 00:45 Temperature Pulse Rate 94 H 94 H 93 H Respiratory Rate 20 21 20 Blood Pressure Pulse Oximetry 95 94 L 93 L 12/12/18 01:00 12/12/18 01:02 12/12/18 01:15 Temperature Pulse Rate 95 H 98 H 103 H Respiratory Rate 21 21 22 Blood Pressure 173/80 H Pulse Oximetry 92 L 92 L 90 L 12/12/18 01:30 12/12/18 01:45 12/12/18 02:00 Temperature 98.0 F Pulse Rate 105 H 108 H 105 H Respiratory Rate 22 25 H 22 Blood Pressure Pulse Oximetry 92 L 93 L 94 L 12/12/18 02:02 12/12/18 02:15 12/12/18 02:30 Temperature Pulse Rate 105 H 106 H 100 H Respiratory Rate 24 22 18 Blood Pressure 167/74 H Pulse Oximetry 92 L 94 L 94 L 12/12/18 02:45 12/12/18 03:00 12/12/18 03:02 Temperature Pulse Rate 101 H 100 H 100 H Respiratory Rate 21 20 19 Blood Pressure 161/71 H Pulse Oximetry 92 L 92 L 91 L 12/12/18 03:15 12/12/18 03:30 12/12/18 03:45 Temperature Pulse Rate 101 H 99 H 97 H Respiratory Rate 20 19 21 Blood Pressure Pulse Oximetry 93 L 93 L 92 L 12/12/18 03:54 12/12/18 04:00 12/12/18 04:02 Temperature 99.4 F Pulse Rate 101 H 101 H Respiratory Rate 20 22 18 Blood Pressure 168/77 H Pulse Oximetry 93 L 91 L 92 L 12/12/18 04:15 12/12/18 04:30 12/12/18 04:45 Temperature Pulse Rate 104 H 100 H 101 H Respiratory Rate 27 H 21 22 Blood Pressure Pulse Oximetry 91 L 91 L 90 L 12/12/18 05:00 12/12/18 05:02 12/12/18 05:15 Temperature Pulse Rate 108 H 106 H 96 H Respiratory Rate 21 14 15 Blood Pressure 178/79 H Pulse Oximetry 96 96 93 L 12/12/18 05:30 12/12/18 05:45 12/12/18 06:00 Temperature 98.5 F Pulse Rate 99 H 96 H 94 H Respiratory Rate 15 17 19 Blood Pressure Pulse Oximetry 92 L 94 L 92 L 12/12/18 06:02 12/12/18 06:15 12/12/18 06:30 Temperature Pulse Rate 95 H 93 H 98 H Respiratory Rate 19 23 19 Blood Pressure 160/73 H Pulse Oximetry 94 L 93 L 95 12/12/18 06:45 12/12/18 07:00 12/12/18 07:02 Temperature Pulse Rate 96 H 94 H 96 H Respiratory Rate 24 18 21 Blood Pressure 161/79 H Pulse Oximetry 92 L 94 L 93 L 12/12/18 07:15 12/12/18 07:30 12/12/18 07:45 Temperature Pulse Rate 93 H 95 H 92 H Respiratory Rate 14 21 14 Blood Pressure Pulse Oximetry 93 L 91 L 92 L 12/12/18 08:00 12/12/18 08:02 12/12/18 08:15 Temperature 99.7 F H Pulse Rate 96 H 96 H 92 H Respiratory Rate 21 20 19 Blood Pressure 178/80 H Pulse Oximetry 93 L 90 L 92 L 12/12/18 08:18 12/12/18 08:22 12/12/18 08:30 Temperature Pulse Rate 92 H 89 Respiratory Rate 14 Blood Pressure Pulse Oximetry 91 L 94 L 12/12/18 08:45 12/12/18 09:00 12/12/18 09:02 Temperature Pulse Rate 87 86 85 Respiratory Rate 14 14 14 Blood Pressure 150/70 H Pulse Oximetry 93 L 94 L 94 L 12/12/18 09:07 12/12/18 09:15 12/12/18 09:30 Temperature Pulse Rate 90 102 H 91 H Respiratory Rate 30 H 28 H 15 Blood Pressure Pulse Oximetry 97 98 93 L 12/12/18 09:45 12/12/18 10:00 12/12/18 10:02 Temperature Pulse Rate 87 86 88 Respiratory Rate 24 25 H 24 Blood Pressure 160/77 H Pulse Oximetry 93 L 94 L 94 L 12/12/18 10:15 12/12/18 10:30 12/12/18 10:37 Temperature Pulse Rate 88 86 83 Respiratory Rate 14 23 Blood Pressure Pulse Oximetry 94 L 95 12/12/18 10:45 12/12/18 11:00 Temperature Pulse Rate 86 82 Respiratory Rate 25 H 25 H Blood Pressure 160/77 H Pulse Oximetry 95 94 L Intake & Output 12/11/18 12/12/18 12/12/18 18:59 06:59 18:59 Intake Total 2420 / 2420 983 / 983 Output Total 150 / 150 650 / 650 Balance 2270 / 2270 333 / 333 Weight 83.4 kg Intake: IV 1400 / 1400 300 / 300 Diprivan 1000 mg/100 ml Inj 1, 100 / 100 000 mg In 100 ml @ 5 MCG/KG/MIN 2.436 mls/hr IV.CONT TITRATE PRN Rx#:[id number] NS Inj 1,000 ML @ 70 mls/hr IV. 1000 / 1000 CONT .[id number] LA Rx#:[id number] Unasyn Inj 3 GM In NS Inj 100 100 / 100 300 / 300 ML @ 200 mls/hr IV.SIG Q6H LA Rx#:[id number] KCl 20 mEq Premix Inj 20 meq In 200 / 200 100 ml @ 50 mls/hr IV.SIG Q2H PRN Rx#:[id number] Tube Feeding 660 / 660 563 / 563 Tube Irrigant 160 / 160 120 / 120 Water Bolus Amount 200 / 200 Output: Urine Amount (Catheter) 150 / 150 650 / 650 Condom 150 / 150 650 / 650 Gastric Drainage 0 / 0 Orogastric Tube 0 / 0 Other: # Voids 2 # Incontinent Voids 0 Date of Last Bowel Movement 12/11/18 12/11/18 # Bowel Movements 2 2 # Incontinent Bowel Movements 2 2 Narrative: GENERAL: in NAD, on propofol SKIN: Warm and dry. HEAD: Atraumatic. Normocephalic. ENT: No nasal bleeding or discharge. NECK: Trachea midline. No JVD. CARDIOVASCULAR: Regular rate and rhythm. RESPIRATORY: Intubated GASTROINTESTINAL: Abdomen soft, non-tender, nondistended. MUSCULOSKELETAL: Extremities without clubbing, cyanosis, NEUROLOGICAL: Intubated, off sedation, stuporous state, not following, OU sluggishly reactive pupils mild left gaze preference, some flexion upper extremities, mild withdrawal lower extremities PSYCHIATRIC: Intubated - Constitutional no acute distress - Routine HEENT Exam Head: Present: normocephalic - Urinary Catheter Management Indwelling Urethral Catheter Cath placed during this visit: yes Reason for continuing: Hourly intake/output Insertion date: 12/07/18 Insertion time: 07:27 Condom Cath placed during this visit: yes, but has since been removed by the nurse Reason for continuing: Continue criteria not met Insertion date: 12/07/18 Removal date: 12/07/18 Removal time: 18:00 Objective Laboratory Results - last 24 hr 12/11/18 12/11/18 12/12/18 12:20 18:01 01:04 WBC RBC Hgb Hct MCV MCH MCHC RDW Plt Count MPV Neut % (Auto) Lymph % (Auto) Giles % (Auto) Eos % (Auto) Baso % (Auto) Neut # (Auto) Lymph # (Auto) Giles # (Auto) Eos # (Auto) Baso # (Auto) WBC Differential Differential Comment Sodium Potassium Chloride Carbon Dioxide Anion Gap BUN Creatinine Estimated GFR POC Glucose 163 H 215 H 213 H Random Glucose Calcium Phosphorus Magnesium 12/12/18 12/12/18 12/12/18 04:45 04:45 05:21 WBC 14.1 H RBC 4.26 L Hgb 13.0 Hct 38.9 L MCV 91.3 MCH 30.4 MCHC 33.4 RDW 15.2 Plt Count 217 MPV 10.1 Neut % (Auto) 71.0 H Lymph % (Auto) 13.0 Giles % (Auto) 14.1 H Eos % (Auto) 1.4 Baso % (Auto) 0.5 Neut # (Auto) 10.0 H Lymph # (Auto) 1.8 Giles # (Auto) 2.0 H Eos # (Auto) 0.2 Baso # (Auto) 0.1 WBC Differential . Differential Comment Auto diff final Sodium 143 Potassium 3.7 Chloride 110 H Carbon Dioxide 26.2 Anion Gap 7 BUN 11 Creatinine 0.65 Estimated GFR Greater than 89 POC Glucose 122 H Random Glucose 131 H Calcium 7.6 L Phosphorus 2.6 Magnesium 1.9 Microbiology 12/09/18 03:00 Gram Stain - Final Sputum - Endotracheal Sputum Culture - Preliminary Staphylococcus aureus Klebsiella pneumoniae Serratia marcescens 12/07/18 15:21 Aerobic Blood Culture - Final Blood - Peripheral No growth in 5 days Anaerobic Blood Culture - Final No growth in 5 days 12/07/18 15:26 Aerobic Blood Culture - Final Blood - Peripheral No growth in 5 days Anaerobic Blood Culture - Final No growth in 5 days Review/Management - Diagnosis (1) Acute ischemic left MCA stroke Code(s): I63.512 - Cerebral infarction due to unspecified occlusion or stenosis of left middle cerebral artery Status: Acute Current Visit: Yes (2) Left carotid artery occlusion Code(s): I65.22 - Occlusion and stenosis of left carotid artery Status: Acute Current Visit: Yes (3) Stroke Code(s): I63.9 - Cerebral infarction, unspecified Status: Acute Current Visit: Yes (4) Leukocytosis Code(s): D72.829 - Elevated white blood cell count, unspecified Status: Acute Current Visit: Yes (5) Pneumonia Code(s): J18.9 - Pneumonia, unspecified organism Status: Acute Current Visit : Yes (6) GI bleed Code(s): K92.2 - Gastrointestinal hemorrhage, unspecified Status: Acute Current Visit: Yes (7) Respiratory failure Code(s): J96.90 - Respiratory failure, unspecified, unspecified whether with hypoxia or hypercapnia Status: Acute Current Visit: Yes - Review/Management Plan: Status post left carotid stent placement, mechanical thromboembolectomy Etiology would include aortic arch athero emboli, versus A. fib MRI brain scan reviewed moderate left MCA territory strokes 2D echo showing EF proximal 45% with mild pericardial effusion 12/09/2018 CT brain stable 12/11/2018 aspiration pneumonia IV antibiotics Recommendation Neuro stable, still quite somnolent Trial of Provigil Aspirin, statin Extubation per critical care Follow exam (3) Stroke Qualifiers: CVA mechanism: occlusion Precerebral and cerebral artery: middle cerebral artery Laterality of affected vessel: left Qualified Code(s): I63.512 - Cerebral infarction due to unspecified occlusion or stenosis of left middle cerebral artery (4) Leukocytosis Qualifiers: Leukocytosis type: unspecified Qualified Code(s): D72.829 - Elevated white blood cell count, unspecified (5) Pneumonia Qualifiers: Pneumonia type: due to unspecified organism Laterality: left Lung location: lower lobe of lung Qualified Code(s): J18.1 - Lobar pneumonia, unspecified organism (6) GI bleed Qualifiers: GI bleed type/associated pathology: unspecified gastrointestinal hemorrhage type Qualified Code(s): K92.2 - Gastrointestinal hemorrhage, unspecified (7) Respiratory failure Qualifiers: Chronicity: acute Respiratory failure complication: unspecified whether with hypoxia or hypercapnia Qualified Code(s): J96.00 - Acute respiratory failure, unspecified whether with hypoxia or hypercapnia
[2018-12-12] MEDS ORDERED: Modafinil 200 MG Tablet PO SCH ×2 (13:00→16:45)
[2018-12-13] MEDS: Insulin NovoLIN Regular Correctional Sugar Inj SQ SCH ×4 (01:07→17:50)
[2018-12-13] MEDS: Oral Hygiene Kit OROPHARYNG SCH ×4 (01:08→17:50)
[2018-12-13] MEDS: Artificial Tears Opth Drops 15 ML Bottle EACH EYE SCH ×3 (05:09→17:50)
[2018-12-13] MEDS: Heparin - SQ 10,000 UNITS/ML Vial SQ SCH ×2 (05:09→13:34)
[2018-12-13 05:26] LABS: Baso # (Auto) 0.2 th/mm3 (0.0-0.2); Baso % (Auto) 1.1 % (0.0-2.0); Eos # (Auto) 0.2 th/mm3 (0.0-0.4); Eos % (Auto) 1.7 % (0.0-4.0); Hematocrit 39.1 % (39.0-51.0); Hemoglobin 13.1 gm/dL (13.0-17.0); Mean Corpuscular HGB Conc 33.4 % (32.0-36.0); Mean Corpuscular Hemoglobin 30.1 pg (27.0-34.0); Mean Corpuscular Volume 90.1 fL (80.0-100.0); Mono # (Auto) 1.9 th/mm3 (0.0-0.9); Mono % (Auto) 14.6 % (0.0-8.0); Neut % (Auto) 67.6 % (16.0-70.0); Platelet Count 238 th/mm3 (150-450); Red Blood Count 4.34 mil/mm3 (4.50-5.90); Red Cell Distribution Width 14.9 % (11.6-17.2); White Blood Count 13.3 th/mm3 (4.0-11.0)
[2018-12-13 05:55] LABS: Anion Gap 8 meq/L (5-15); Blood Urea Nitrogen 14 mg/dL (7-18); Calcium 8.3 mg/dL (8.5-10.1); Carbon Dioxide 28.8 meq/L (21.0-32.0); Chloride 103 meq/L (98-107); Glomerular Filtration Rate Greater Than 89 mL/min (>89); Glucose,Random 157 mg/dL (74-106); Magnesium 1.9 mg/dL (1.5-2.5); Potassium 3.3 meq/L (3.5-5.1); Sodium 140 meq/L (136-145)
[2018-12-13 05:56] LABS: Phosphorus 2.8 mg/dL (2.5-4.9)
[2018-12-13] MEDS ORDERED: Modafinil 200 MG Tablet PO SCH ×2 (09:00→10:00)
--- NOTE | 2018-12-13 09:20 | P.PNNEU ---
Subjective Subjective Comments: no acute events Active Medications: Active Medications Acetaminophen (Tylenol) 650 mg PO Q6H PRN PRN Reason: TEMPERATURE > 101 F Albuterol (Duoneb Neb (Prn)) 1 ampul NEB Q2HR NEB PRN PRN Reason: SHORTNESS OF BREATH Last Admin: 12/12/18 20:06 Dose: 1 ampul Artificial Tears (Tears Naturale Opth Drops) 1 drop EACH EYE Q6H PENDING SALE TO [facility] Last Admin: 12/13/18 05:09 Dose: 1 drop Aspirin (Aspirin) 325 mg PO DAILY PENDING SALE TO [facility] Last Admin: 12/12/18 09:11 Dose: 325 mg Atorvastatin Calcium (Lipitor) 80 mg PO DAILY PENDING SALE TO [facility] Last Admin: 12/12/18 09:11 Dose: 80 mg Bisacodyl (Dulcolax Supp) 10 mg RECTAL DAILY PRN PRN Reason: if no BM in last 24h Chlorhexidine Gluconate (Peridex 0.12% Oral Kit) 15 ml OROPHARYNG BID@0800, 2000 PENDING SALE TO [facility] Last Admin: 12/12/18 20:53 Dose: 15 ml Dextrose (D50w Vial) 50 ml IV.PUSH UNSCH PRN PRN Reason: PER HYPOGLYCEMIA PROTOCOL Famotidine (Pepcid Pf Inj) 20 mg IV.PUSH Q12HR PENDING SALE TO [facility] Last Admin: 12/12/18 20:53 Dose: 20 mg Glucagon (Glucagon Inj) 1 mg OTHER PRN PRN PRN Reason: for Hypoglycemia Protocol Heparin Sodium (Porcine) (Heparin Inj) 5,000 units SQ Q8HR PENDING SALE TO [facility] Last Admin: 12/13/18 05:09 Dose: 5,000 units Hydralazine HCl (Apresoline Inj) 10 mg IV.PUSH Q30M PRN PRN Reason: sbp > 180 Last Admin: 12/12/18 22:19 Dose: 10 mg Hyoscyamine (Levsin) 0.25 mg PO Q4H PRN PRN Reason: secretions Last Admin: 12/12/18 11:29 Dose: 0.25 mg Pantoprazole Sodium 80 mg/ (Sodium Chloride) 100 mls @ 10 mls/hr IV.CONT CONT PENDING SALE TO [facility] Magnesium Sulfate 4 gm/ Sodium (Chloride) 100 mls @ 50 mls/hr IV.SIG UNSCH PRN PRN Reason: For Magnesium 0.9 - 1.1 mg/dL Magnesium Sulfate 2 gm/ Sodium (Chloride) 100 mls @ 50 mls/hr IV.SIG UNSCH PRN PRN Reason: For Magnesium 1.2 - 1.6 mg/dL Potassium Chloride (Kcl 40 Meq Premix Inj) 40 meq in 100 mls @ 25 mls/hr IV.SIG Q2H PRN PRN Reason: For Potassium 2.8 - 3.2 mEq/L Potassium Chloride (Kcl 20 Meq Premix Inj) 20 meq in 100 mls @ 50 mls/hr IV.SIG Q2H PRN PRN Reason: For Potassium 3.3 - 3.5 mEq/L Last Infusion: 12/11/18 13:30 Dose: Infused Potassium Chloride (Kcl 40 Meq Premix Inj) 40 meq in 100 mls @ 25 mls/hr IV.SIG UNSCH PRN PRN Reason: For Potassium 3.3 - 3.5 mEq/L Potassium Chloride (Kcl 20 Meq Premix Inj) 20 meq in 100 mls @ 50 mls/hr IV.SIG Q2H PRN PRN Reason: For Potassium 2.8 - 3.2 mEq/L Last Infusion: 12/08/18 11:09 Dose: Infused Potassium Phosphate 30 mmol/ (Sodium Chloride) 260 mls @ 42 mls/hr IV.SIG UNSCH PRN PRN Reason: SEE LABEL COMMENTS Last Admin: 12/09/18 08:19 Dose: 42 mls/hr Sodium Phosphate 30 mmol/ (Sodium Chloride) 260 mls @ 42 mls/hr IV.SIG UNSCH PRN PRN Reason: For Phosphorus < 2.5 mg/dL Propofol (Diprivan 1000 Mg/100 Ml Inj) 1,000 mg in 100 mls @ 2.436 mls/hr IV.CONT TITRATE PRN; Protocol PRN Reason: Per Protocol Last Titration: 12/11/18 13:39 Dose: 0 mcg/kg/min, 0 mls/hr Levofloxacin/Dextrose (Levaquin 750 Mg Premix Inj) 150 mls @ 100 mls/hr IV.SIG Q24H LA Stop: 12/19/18 10:59 Last Infusion: 12/12/18 13:09 Dose: Infused Insulin Human Regular (Novolin R Correctional Sugar Inj) 0 units SQ Q6HR LA; Protocol Last Admin: 12/13/18 05:15 Dose: 2 units Labetalol HCl (Trandate Inj) 10 mg IV.PUSH Q30M PRN PRN Reason: SYS BP GREATER THAN 180 MMHG Last Admin: 12/11/18 22:40 Dose: 10 mg Lactulose (Lactulose Liq) 30 ml PO BID PENDING SALE TO [facility] Last Admin: 12/12/18 20:53 Dose: Not Given Magnesium Oxide (Mag-Ox) 800 mg PO UNSCH PRN PRN Reason: For Magnesium 1.2 - 1.6 mg/dL Miscellaneous (Pill Splitter) 1 each OTHER UNSCH PRN PRN Reason: SEE LABEL COMMENTS Miscellaneous Medication () 1 each OROPHARYNG 0000,0400,1200,1600 PENDING SALE TO [facility] Last Admin: 12/13/18 05:09 Dose: 1 each Modafinil (Provigil) 100 mg PO DAILY PENDING SALE TO [facility] Modafinil (Provigil) 50 mg PO NOW PENDING SALE TO [facility] Ondansetron HCl (Zofran Inj) 4 mg IV.PUSH Q6H PRN PRN Reason: NAUSEA OR VOMITING Polyethylene Glycol (Miralax) 17 gm PO BID PENDING SALE TO [facility] Last Admin: 12/12/18 20:53 Dose: Not Given Potassium Chloride (Kcl Liq) 40 meq PO UNSCH PRN PRN Reason: Potassium level 3.3-3.5 mEq/L Last Admin: 12/10/18 12:13 Dose: 40 meq Potassium Chloride (Kcl Liq) 40 meq PO UNSCH PRN PRN Reason: POTASSIUM LESS THAN 3.5 Last Admin: 12/08/18 08:05 Dose: 40 meq Potassium Phosphate (K-Phos Original) 2,000 mg PO UNSCH PRN PRN Reason: SEE LABEL COMMENTS Potassium Phosphate (K-Phos Original) 2,000 mg PO Q4H PRN PRN Reason: Phosphorus Less Than 2.5 mg/dL Senna/Docusate Sodium (Noelle-Colace) 1 tab PO BID PENDING SALE TO [facility] Last Admin: 12/12/18 20:53 Dose: Not Given Sodium Chloride (Ns Flush) 2 ml IV.FLUSH UNSCH PRN PRN Reason: FLUSH AFTER USING IV ACCESS Last Admin: 12/12/18 20:54 Dose: 2 ml Allergies/Adverse Reactions: Allergies Allergy/AdvReac Type Severity Reaction Status Date / Time No Known Allergies Allergy Verified 09/21/18 15:52 Review of Systems unobtainable due to endotracheal tube, unobtainable due to mental status Physical Exam Vital signs: Vital Signs 12/12/18 09:30 12/12/18 09:45 12/12/18 10:00 Temperature Pulse Rate 91 H 87 86 Respiratory Rate 15 24 25 H Blood Pressure Pulse Oximetry 93 L 93 L 94 L 12/12/18 10:02 12/12/18 10:15 12/12/18 10:30 Temperature Pulse Rate 88 88 86 Respiratory Rate 24 14 23 Blood Pressure 160/77 H Pulse Oximetry 94 L 94 L 95 12/12/18 10:37 12/12/18 10:45 12/12/18 11:00 Temperature Pulse Rate 83 86 82 Respiratory Rate 25 H 25 H Blood Pressure 160/77 H Pulse Oximetry 95 94 L 12/12/18 11:02 12/12/18 11:15 12/12/18 11:30 Temperature Pulse Rate 83 82 89 Respiratory Rate 25 H 25 H 14 Blood Pressure 141/67 H Pulse Oximetry 94 L 95 95 12/12/18 11:45 12/12/18 12:00 12/12/18 12:02 Temperature Pulse Rate 97 H 87 91 H Respiratory Rate 25 H 24 23 Blood Pressure 168/77 H Pulse Oximetry 93 L 94 L 93 L 12/12/18 12:14 12/12/18 12:15 12/12/18 12:30 Temperature 99.3 F Pulse Rate 97 H 89 90 Respiratory Rate 23 14 Blood Pressure Pulse Oximetry 95 95 12/12/18 12:45 12/12/18 13:00 12/12/18 13:02 Temperature Pulse Rate 91 H 99 H 98 H Respiratory Rate 16 27 H 27 H Blood Pressure 191/84 H Pulse Oximetry 95 97 97 12/12/18 13:03 12/12/18 13:12 12/12/18 13:15 Temperature Pulse Rate 97 H 97 H Respiratory Rate 26 H 21 22 Blood Pressure 183/68 H Pulse Oximetry 96 94 L 95 12/12/18 13:30 12/12/18 13:45 12/12/18 14:00 Temperature Pulse Rate 100 H 98 H 96 H Respiratory Rate 21 18 17 Blood Pressure Pulse Oximetry 92 L 93 L 95 12/12/18 14:02 12/12/18 14:15 12/12/18 14:25 Temperature Pulse Rate 95 H 96 H 93 H Respiratory Rate 19 19 Blood Pressure 140/63 Pulse Oximetry 96 96 12/12/18 14:30 12/12/18 14:45 02/17/19 15:00 Temperature Pulse Rate 100 H 95 H 98 H Respiratory Rate 19 23 23 Blood Pressure Pulse Oximetry 94 L 93 L 91 L 12/12/18 15:02 12/12/18 15:15 12/12/18 15:30 Temperature Pulse Rate 99 H 92 H 90 Respiratory Rate 24 14 21 Blood Pressure 147/69 H Pulse Oximetry 88 L 95 95 12/12/18 15:45 12/12/18 16:00 12/12/18 16:02 Temperature Pulse Rate 93 H 95 H 95 H Respiratory Rate 14 24 14 Blood Pressure 150/71 H Pulse Oximetry 97 95 95 12/12/18 16:15 12/12/18 16:22 12/12/18 16:30 Temperature Pulse Rate 94 H 103 H 93 H Respiratory Rate 25 H 22 Blood Pressure Pulse Oximetry 95 96 12/12/18 16:45 12/12/18 17:00 12/12/18 17:02 Temperature 99.0 F Pulse Rate 92 H 100 H 97 H Respiratory Rate 23 24 24 Blood Pressure 161/75 H Pulse Oximetry 94 L 94 L 94 L 12/12/18 17:15 12/12/18 17:30 12/12/18 17:45 Temperature Pulse Rate 97 H 100 H 104 H Respiratory Rate 19 24 22 Blood Pressure Pulse Oximetry 94 L 94 L 94 L 12/12/18 17:48 12/12/18 18:00 12/12/18 18:02 Temperature Pulse Rate 104 H 104 H Respiratory Rate 23 25 H 26 H Blood Pressure 171/82 H Pulse Oximetry 94 L 94 L 95 12/12/18 18:12 12/12/18 19:30 12/12/18 19:45 Temperature Pulse Rate 102 H 96 H 97 H Respiratory Rate 20 20 Blood Pressure Pulse Oximetry 94 L 94 L 12/12/18 20:00 12/12/18 20:02 12/12/18 20:05 Temperature Pulse Rate 96 H 95 H 97 H Respiratory Rate 21 18 22 Blood Pressure 170/92 H Pulse Oximetry 94 L 95 95 12/12/18 20:15 12/12/18 20:30 12/12/18 20:45 Temperature Pulse Rate 100 H 99 H 93 H Respiratory Rate 21 21 14 Blood Pressure Pulse Oximetry 97 94 L 95 12/12/18 21:00 12/12/18 21:02 12/12/18 21:15 Temperature Pulse Rate 96 H 97 H 99 H Respiratory Rate 19 20 20 Blood Pressure 186/88 H Pulse Oximetry 95 95 94 L 12/12/18 21:29 12/12/18 21:30 12/12/18 21:45 Temperature Pulse Rate 96 H 97 H 96 H Respiratory Rate 14 9 L 19 Blood Pressure 176/81 H Pulse Oximetry 95 95 94 L 12/12/18 22:00 12/12/18 22:02 12/12/18 22:03 Temperature Pulse Rate 97 H 96 H 103 H Respiratory Rate 19 14 24 Blood Pressure 182/118 H 186/86 H Pulse Oximetry 94 L 94 L 95 12/12/18 22:13 12/12/18 22:15 12/12/18 22:20 Temperature Pulse Rate 110 H 105 H 84 Respiratory Rate 27 H 14 17 Blood Pressure 219/98 H 204/93 H 159/63 H Pulse Oximetry 94 L 97 94 L 12/12/18 22:30 12/12/18 22:45 12/12/18 23:00 Temperature Pulse Rate 92 H 88 91 H Respiratory Rate 16 14 14 Blood Pressure Pulse Oximetry 94 L 94 L 95 12/12/18 23:02 12/12/18 23:15 12/12/18 23:20 Temperature Pulse Rate 91 H 91 H Respiratory Rate 17 14 14 Blood Pressure 142/65 H Pulse Oximetry 94 L 95 95 12/12/18 23:30 12/12/18 23:45 12/13/18 00:00 Temperature 99.4 F Pulse Rate 92 H 94 H 98 H Respiratory Rate 14 19 20 Blood Pressure Pulse Oximetry 96 96 96 12/13/18 00:02 12/13/18 00:15 12/13/18 00:30 Temperature Pulse Rate 98 H 98 H 96 H Respiratory Rate 19 20 15 Blood Pressure 143/64 H Pulse Oximetry 94 L 94 L 94 L 12/13/18 00:45 12/13/18 01:00 12/13/18 01:02 Temperature Pulse Rate 96 H 96 H 97 H Respiratory Rate 19 19 21 Blood Pressure 165/69 H Pulse Oximetry 96 95 93 L 12/13/18 01:15 12/13/18 01:30 12/13/18 01:45 Temperature Pulse Rate 95 H 97 H 96 H Respiratory Rate 15 18 15 Blood Pressure Pulse Oximetry 94 L 95 95 12/13/18 02:00 12/13/18 02:02 12/13/18 02:15 Temperature Pulse Rate 99 H 98 H 95 H Respiratory Rate 19 19 19 Blood Pressure 159/70 H Pulse Oximetry 95 95 95 12/13/18 02:30 12/13/18 02:45 12/13/18 03:00 Temperature Pulse Rate 94 H 94 H 93 H Respiratory Rate 21 19 19 Blood Pressure Pulse Oximetry 94 L 93 L 93 L 12/13/18 03:02 12/13/18 03:15 12/13/18 03:30 Temperature Pulse Rate 92 H 93 H 89 Respiratory Rate 18 20 14 Blood Pressure 151/82 H Pulse Oximetry 93 L 93 L 94 L 12/13/18 03:45 12/13/18 03:55 12/13/18 04:00 Temperature Pulse Rate 89 94 H Respiratory Rate 14 14 35 H Blood Pressure Pulse Oximetry 95 94 L 96 12/13/18 04:02 12/13/18 04:15 12/13/18 04:30 Temperature Pulse Rate 95 H 92 H 90 Respiratory Rate 17 22 14 Blood Pressure 151/79 H Pulse Oximetry 96 94 L 92 L 12/13/18 04:45 12/13/18 05:00 12/13/18 05:02 Temperature Pulse Rate 90 96 H 95 H Respiratory Rate 14 16 16 Blood Pressure 162/72 H Pulse Oximetry 95 97 98 12/13/18 05:15 12/13/18 05:30 12/13/18 05:45 Temperature Pulse Rate 93 H 94 H 92 H Respiratory Rate 18 15 18 Blood Pressure Pulse Oximetry 93 L 94 L 94 L 12/13/18 06:00 12/13/18 06:02 12/13/18 06:15 Temperature Pulse Rate 94 H 93 H 97 H Respiratory Rate 19 19 22 Blood Pressure 174/74 H Pulse Oximetry 92 L 92 L 93 L 12/13/18 06:30 12/13/18 06:32 12/13/18 06:45 Temperature Pulse Rate 98 H 96 H 97 H Respiratory Rate 20 21 16 Blood Pressure 164/74 H Pulse Oximetry 90 L 88 L 91 L 12/13/18 07:00 12/13/18 07:02 12/13/18 07:15 Temperature Pulse Rate 98 H 97 H 93 H Respiratory Rate 21 18 19 Blood Pressure 152/68 H Pulse Oximetry 89 L 87 L 89 L 02/18/19 08:00 Temperature Pulse Rate Respiratory Rate 15 Blood Pressure Pulse Oximetry 92 L Intake & Output 12/12/18 12/13/18 12/13/18 18:59 06:59 18:59 Intake Total 1017 / 1017 588 / 588 Output Total 1400 / 1400 1450 / 1450 Balance -383 / -383 -862 / -862 Weight 83.6 kg Intake: IV 150 / 150 Levaquin 750 mg Premix Inj 150 150 / 150 ML @ 100 mls/hr IV.SIG Q24H LA Rx#:[id number] Tube Feeding 707 / 707 468 / 468 Tube Irrigant 160 / 160 120 / 120 Output: Urine Amount (Catheter) 1400 / 1400 1450 / 1450 Condom 1400 / 1400 1450 / 1450 Gastric Drainage 0 / 0 0 / 0 Orogastric Tube 0 / 0 0 / 0 Other: Date of Last Bowel Movement 12/12/18 12/13/18 # Bowel Movements 2 1 # Incontinent Bowel Movements 2 1 Narrative: GENERAL: in NAD, SKIN: Warm and dry. HEAD: Atraumatic. Normocephalic. ENT: No nasal bleeding or discharge. NECK: Trachea midline. No JVD. CARDIOVASCULAR: Regular rate and rhythm. RESPIRATORY: Intubated GASTROINTESTINAL: Abdomen soft, nondistended. MUSCULOSKELETAL: Extremities without clubbing, cyanosis, NEUROLOGICAL: Intubated, stuporous state, not following, OU sluggishly reactive pupils mild left gaze preference, some flexion upper extremities, mild withdrawal lower extremities PSYCHIATRIC: Intubated - Constitutional no acute distress - Routine HEENT Exam Head: Present: normocephalic - Urinary Catheter Management Indwelling Urethral Catheter Cath placed during this visit: yes Reason for continuing: Hourly intake/output Insertion date: 12/07/18 Insertion time: 07:27 Condom Cath placed during this visit: yes, but has since been removed by the nurse Reason for continuing: Continue criteria not met Insertion date: 12/07/18 Removal date: 12/07/18 Removal time: 18:00 Objective Laboratory Results - last 24 hr 12/12/18 12/12/18 12/13/18 11:19 18:20 01:04 WBC RBC Hgb Hct MCV MCH MCHC RDW Plt Count MPV Neut % (Auto) Lymph % (Auto) [place] % (Auto) Eos % (Auto) Baso % (Auto) Neut # (Auto) Lymph # (Auto) [place] # (Auto) Eos # (Auto) Baso # (Auto) WBC Differential Differential Comment Sodium Potassium Chloride Carbon Dioxide Anion Gap BUN Creatinine Estimated GFR POC Glucose 199 H 260 H 225 H Random Glucose Calcium Phosphorus Magnesium 12/13/18 12/13/18 12/13/18 04:27 04:27 05:12 WBC 13.3 H RBC 4.34 L Hgb 13.1 Hct 39.1 MCV 90.1 MCH 30.1 MCHC 33.4 RDW 14.9 Plt Count 238 MPV 10.0 Neut % (Auto) 67.6 Lymph % (Auto) 15.0 [place] % (Auto) 14.6 H Eos % (Auto) 1.7 Baso % (Auto) 1.1 Neut # (Auto) 9.0 H Lymph # (Auto) 2.0 [place] # (Auto) 1.9 H Eos # (Auto) 0.2 Baso # (Auto) 0.2 WBC Differential . Differential Comment Auto diff final Sodium 140 Potassium 3.3 L Chloride 103 Carbon Dioxide 28.8 Anion Gap 8 BUN 14 Creatinine 0.77 Estimated GFR Greater than 89 POC Glucose 169 H Random Glucose 157 H Calcium 8.3 L Phosphorus 2.8 Magnesium 1.9 Microbiology 12/09/18 03:00 Gram Stain - Final Sputum - Endotracheal Sputum Culture - Final Staphylococcus aureus Klebsiella pneumoniae Serratia marcescens 12/07/18 15:21 Aerobic Blood Culture - Final Blood - Peripheral No growth in 5 days Anaerobic Blood Culture - Final No growth in 5 days 12/07/18 15:26 Aerobic Blood Culture - Final Blood - Peripheral No growth in 5 days Anaerobic Blood Culture - Final No growth in 5 days Review/Management - Diagnosis (1) Acute ischemic left MCA stroke Code(s): I63.512 - Cerebral infarction due to unspecified occlusion or stenosis of left middle cerebral artery Status: Acute Current Visit: Yes (2) Left carotid artery occlusion Code(s): I65.22 - Occlusion and stenosis of left carotid artery Status: Acute Current Visit: Yes (3) Stroke Code(s): I63.9 - Cerebral infarction, unspecified Status: Acute Current Visit: Yes (4) Leukocytosis Code(s): D72.829 - Elevated white blood cell count, unspecified Status: Acute Current Visit: Yes (5) Pneumonia Code(s): J18.9 - Pneumonia, unspecified organism Status: Acute Current Visit : Yes (6) GI bleed Code(s): K92.2 - Gastrointestinal hemorrhage, unspecified Status: Acute Current Visit: Yes (7) Respiratory failure Code(s): J96.90 - Respiratory failure, unspecified, unspecified whether with hypoxia or hypercapnia Status: Acute Current Visit: Yes - Review/Management Plan: Status post left carotid stent placement, mechanical thromboembolectomy Etiology would include aortic arch athero emboli, versus A. fib MRI brain scan reviewed moderate left MCA territory strokes 2D echo showing EF proximal 45% with mild pericardial effusion 12/09/2018 CT brain stable 12/11/2018 aspiration pneumonia IV antibiotics Recommendation Neuro unchanged. still quite somnolent eeg f/u mri/mra brain Trial of Provigil- started yesterday. will increase to 200mg qam Aspirin, statin Extubation per critical care Follow exam (3) Stroke Qualifiers: CVA mechanism: occlusion Precerebral and cerebral artery: middle cerebral artery Laterality of affected vessel: left Qualified Code(s): I63.512 - Cerebral infarction due to unspecified occlusion or stenosis of left middle cerebral artery (4) Leukocytosis Qualifiers: Leukocytosis type: unspecified Qualified Code(s): D72.829 - Elevated white blood cell count, unspecified (5) Pneumonia Qualifiers: Pneumonia type: due to unspecified organism Laterality: left Lung location: lower lobe of lung Qualified Code(s): J18.1 - Lobar pneumonia, unspecified organism (6) GI bleed Qualifiers: GI bleed type/associated pathology: unspecified gastrointestinal hemorrhage type Qualified Code(s): K92.2 - Gastrointestinal hemorrhage, unspecified (7) Respiratory failure Qualifiers: Chronicity: acute Respiratory failure complication: unspecified whether with hypoxia or hypercapnia Qualified Code(s): J96.00 - Acute respiratory failure, unspecified whether with hypoxia or hypercapnia
[2018-12-13] MEDS: Potassium Chlor 20 mEq Premix 20 MEQ/100 ML PIGGYBACK IV.SIG PRN ×2 (09:46→13:36)
[2018-12-13] MEDS: Chlorhexidine 0.12% Oral Kit 15 ML UDC OROPHARYNG SCH (09:46)
[2018-12-13] MEDS: Famotidine PF Inj 20 MG/2 ML Vial IV.PUSH SCH (09:47)
[2018-12-13] MEDS: Aspirin 325 MG Tablet PO SCH (09:47)
[2018-12-13] MEDS: Polyethylene Glycol 3350 17 GM Packet PO SCH (09:48)
[2018-12-13] MEDS: Senna/Docusate Sodium 8.6/50 MG Tablet PO SCH (09:48)
--- NOTE | 2018-12-13 10:55 | MR ---
EXAM DATE: 12/13/2018 10:51 AM EST AGE/SEX: 73 years / Male INDICATIONS: Altered mental status. CLINICAL DATA: This is the patient's subsequent encounter. Patient reports that signs and symptoms h ave been present for 4 - 6 days and indicates a pain score of Nonresponsive. MEDICAL/SURGICAL HISTORY: Hypertension. Pancreatitis. Skin cancer Appendectomy. COMPARISON: [facility] – [place], MR HEAD W/O CONTRAST, 12/13/2018. . TECHNIQUE: 3D [id number] MRA was performed. Source images, multiplanar STS MIP, and 3D volum e MIP reconstructions were reviewed. FINDINGS: There is excellent visualization of the major intracranial arteries out to the second-order branch ve ssels. There is no evidence for aneurysm, vessel truncation or stenosis, and no evidence for vascula r malformation. CONCLUSION: 1. Negative for major branch vessel occlusion. Electronically signed by: Marquis Alegria MD Board Certified Radiologist 12/13/2018 10:54 AM EST
--- NOTE | 2018-12-13 11:00 | MR ---
EXAM DATE: 12/13/2018 10:52 AM EST AGE/SEX: 73 years / Male INDICATIONS: Altered mental status. CLINICAL DATA: This is the patient's subsequent encounter. Patient reports that signs and symptoms h ave been present for 4 - 6 days and indicates a pain score of Nonresponsive. MEDICAL/SURGICAL HISTORY: Hypertension. Pancreatitis. Skin cancer Appendectomy. [place] [facility] [place]. . TECHNIQUE: Multiplanar, multisequence examination of the brain was performed without contrast. FINDINGS: Cerebrum: There is an evolving infarct in the left MCA territory involving the anterior sylvian ananya on as well as the left proximal occipital region. In the caudate is included as well. There is no ext ension. No new areas of restricted diffusion are evident. There is minimal hemorrhage in the core of the large area of infarct in the left anterior sylvian region as well as the left proximal occipital region, progressed from the comparison study seen best on the susceptibility weighted imaging. There is minimal increase in mass effect with some effacement of the cortical sulci. Mild central and cortical atrophy is present in the remainder of the brain. 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 Posterior fossa remains normal with midline fourth ventricle. CONCLUSION: 1. Evolving infarction in the left hemisphere with very minimal hemorrhagic conversion seen best on the susceptibility weighted imaging. 2. No new areas of infarcts are evident 3. There is no significant increase in mass effect Electronically signed by: Marquis Alegria MD Board Certified Radiologist 12/13/2018 10:59 AM EST
[2018-12-13] MEDS: hydrALAZINE HCl Inj 20 MG/ML Vial IV.PUSH PRN (11:33)
[2018-12-13] MEDS: Labetalol HCl Inj 20 MG/4 ML Vial IV.PUSH PRN (11:49)
--- NOTE | 2018-12-13 12:16 | P.PNCC ---
Subjective Subjective Remarks/Hospital Course: Hospital Course: 73yM last seen normal reports of 1:30am by notes found written by him presented with acute altered mentation and aphasia. initial NIHSS 11 --> 8, but he clinically decompensated and required intubation for a rapidly declining mental status. CT head negative for acute bleed. CTA head/neck demonstrates acute left ICA occlusion. taken emergently for interventional thrombectomy. arrives from embolectomy intubated, sedated. no additional information available from the patient. ROS unobtainable. Subjective: 12/08: following commands. passing SBT. MRI with left MCA distribution infarct, no hemorrhagic conversion. 12/09: reintubated overnight for respiratory failure. now has LLL consolidation, likely aspiration related. repeat head CT shows evolving stroke, no new hemorrhage. 12/10: no changes. awaiting cerebral edema to resolve prior to second attempt at extubation. 12/11: copious secretions are preventing successful weaning attempts. sputum growing GNRs, speciation to follow. mental status remains the same. 12/12: sputum growing polymicrobial sample, consistent with aspiration. will narrow therapy to Levaquin. still following commands. failing SBT for secretions. long discussion yesterday with sister regarding overall prognosis, current medical plan, and potential future anticipated plan of care. 12/13: no improvements. repeat MRI with small hemorrhagic conversion, no increase in size of infarct. sister requests select LTAC, which at this point is appropriate. Objective Vital Signs / I&O: Vital Signs 12/12/18 12:30 12/12/18 12:45 12/12/18 13:00 Temperature 37.4 C Pulse Rate 90 91 H 99 H Respiratory Rate 14 16 27 H Blood Pressure Pulse Oximetry 95 95 97 12/12/18 13:02 12/12/18 13:03 12/12/18 13:12 Temperature Pulse Rate 98 H 97 H Respiratory Rate 27 H 26 H 21 Blood Pressure 191/84 H 183/68 H Pulse Oximetry 97 96 94 L 12/12/18 13:15 12/12/18 13:30 12/12/18 13:45 Temperature Pulse Rate 97 H 100 H 98 H Respiratory Rate 22 21 18 Blood Pressure Pulse Oximetry 95 92 L 93 L 12/12/18 14:00 12/12/18 14:02 12/12/18 14:15 Temperature Pulse Rate 96 H 95 H 96 H Respiratory Rate 17 19 19 Blood Pressure 140/63 Pulse Oximetry 95 96 96 12/12/18 14:25 12/12/18 14:30 12/12/18 14:45 Temperature Pulse Rate 93 H 100 H 95 H Respiratory Rate 19 23 Blood Pressure Pulse Oximetry 94 L 93 L 12/12/18 15:00 12/12/18 15:02 12/12/18 15:15 Temperature Pulse Rate 98 H 99 H 92 H Respiratory Rate 23 24 14 Blood Pressure 147/69 H Pulse Oximetry 91 L 88 L 95 12/12/18 15:30 12/12/18 15:45 12/12/18 16:00 Temperature Pulse Rate 90 93 H 95 H Respiratory Rate 21 14 24 Blood Pressure Pulse Oximetry 95 97 95 12/12/18 16:02 12/12/18 16:15 12/12/18 16:22 Temperature Pulse Rate 95 H 94 H 103 H Respiratory Rate 14 25 H Blood Pressure 150/71 H Pulse Oximetry 95 95 12/12/18 16:30 12/12/18 16:45 12/12/18 17:00 Temperature 37.2 C Pulse Rate 93 H 92 H 100 H Respiratory Rate 22 23 24 Blood Pressure Pulse Oximetry 96 94 L 94 L 12/12/18 17:02 12/12/18 17:15 12/12/18 17:30 Temperature Pulse Rate 97 H 97 H 100 H Respiratory Rate 24 19 24 Blood Pressure 161/75 H Pulse Oximetry 94 L 94 L 94 L 12/12/18 17:45 12/12/18 17:48 12/12/18 18:00 Temperature Pulse Rate 104 H 104 H Respiratory Rate 22 23 25 H Blood Pressure Pulse Oximetry 94 L 94 L 94 L 12/12/18 18:02 12/12/18 18:12 12/12/18 19:30 Temperature Pulse Rate 104 H 102 H 96 H Respiratory Rate 26 H 20 Blood Pressure 171/82 H Pulse Oximetry 95 94 L 12/12/18 19:45 12/12/18 20:00 12/12/18 20:02 Temperature Pulse Rate 97 H 96 H 95 H Respiratory Rate 20 21 18 Blood Pressure 170/92 H Pulse Oximetry 94 L 94 L 95 12/12/18 20:05 12/12/18 20:15 12/12/18 20:30 Temperature Pulse Rate 97 H 100 H 99 H Respiratory Rate 22 21 21 Blood Pressure Pulse Oximetry 95 97 94 L 12/12/18 20:45 12/12/18 21:00 12/12/18 21:02 Temperature Pulse Rate 93 H 96 H 97 H Respiratory Rate 14 19 20 Blood Pressure 186/88 H Pulse Oximetry 95 95 95 12/12/18 21:15 12/12/18 21:29 12/12/18 21:30 Temperature Pulse Rate 99 H 96 H 97 H Respiratory Rate 20 14 9 L Blood Pressure 176/81 H Pulse Oximetry 94 L 95 95 12/12/18 21:45 12/12/18 22:00 12/12/18 22:02 Temperature Pulse Rate 96 H 97 H 96 H Respiratory Rate 19 19 14 Blood Pressure 182/118 H Pulse Oximetry 94 L 94 L 94 L 12/12/18 22:03 12/12/18 22:13 12/12/18 22:15 Temperature Pulse Rate 103 H 110 H 105 H Respiratory Rate 24 27 H 14 Blood Pressure 186/86 H 219/98 H 204/93 H Pulse Oximetry 95 94 L 97 12/12/18 22:20 12/12/18 22:30 12/12/18 22:45 Temperature Pulse Rate 84 92 H 88 Respiratory Rate 17 16 14 Blood Pressure 159/63 H Pulse Oximetry 94 L 94 L 94 L 12/12/18 23:00 12/12/18 23:02 12/12/18 23:15 Temperature Pulse Rate 91 H 91 H 91 H Respiratory Rate 14 17 14 Blood Pressure 142/65 H Pulse Oximetry 95 94 L 95 12/12/18 23:20 12/12/18 23:30 12/12/18 23:45 Temperature Pulse Rate 92 H 94 H Respiratory Rate 14 14 19 Blood Pressure Pulse Oximetry 95 96 96 12/13/18 00:00 12/13/18 00:02 12/13/18 00:15 Temperature 37.4 C Pulse Rate 98 H 98 H 98 H Respiratory Rate 20 19 20 Blood Pressure 143/64 H Pulse Oximetry 96 94 L 94 L 12/13/18 00:30 12/13/18 00:45 12/13/18 01:00 Temperature Pulse Rate 96 H 96 H 96 H Respiratory Rate 15 19 19 Blood Pressure Pulse Oximetry 94 L 96 95 12/13/18 01:02 12/13/18 01:15 12/13/18 01:30 Temperature Pulse Rate 97 H 95 H 97 H Respiratory Rate 21 15 18 Blood Pressure 165/69 H Pulse Oximetry 93 L 94 L 95 12/13/18 01:45 12/13/18 02:00 12/13/18 02:02 Temperature Pulse Rate 96 H 99 H 98 H Respiratory Rate 15 19 19 Blood Pressure 159/70 H Pulse Oximetry 95 95 95 12/13/18 02:15 12/13/18 02:30 12/13/18 02:45 Temperature Pulse Rate 95 H 94 H 94 H Respiratory Rate 19 21 19 Blood Pressure Pulse Oximetry 95 94 L 93 L 12/13/18 03:00 12/13/18 03:02 12/13/18 03:15 Temperature Pulse Rate 93 H 92 H 93 H Respiratory Rate 19 18 20 Blood Pressure 151/82 H Pulse Oximetry 93 L 93 L 93 L 12/13/18 03:30 12/13/18 03:45 12/13/18 03:55 Temperature Pulse Rate 89 89 Respiratory Rate 14 14 14 Blood Pressure Pulse Oximetry 94 L 95 94 L 12/13/18 04:00 12/13/18 04:02 12/13/18 04:15 Temperature Pulse Rate 94 H 95 H 92 H Respiratory Rate 35 H 17 22 Blood Pressure 151/79 H Pulse Oximetry 96 96 94 L 12/13/18 04:30 12/13/18 04:45 12/13/18 05:00 Temperature Pulse Rate 90 90 96 H Respiratory Rate 14 14 16 Blood Pressure Pulse Oximetry 92 L 95 97 12/13/18 05:02 12/13/18 05:15 12/13/18 05:30 Temperature Pulse Rate 95 H 93 H 94 H Respiratory Rate 16 18 15 Blood Pressure 162/72 H Pulse Oximetry 98 93 L 94 L 12/13/18 05:45 12/13/18 06:00 12/13/18 06:02 Temperature Pulse Rate 92 H 94 H 93 H Respiratory Rate 18 19 19 Blood Pressure 174/74 H Pulse Oximetry 94 L 92 L 92 L 12/13/18 06:15 12/13/18 06:30 12/13/18 06:32 Temperature Pulse Rate 97 H 98 H 96 H Respiratory Rate 22 20 21 Blood Pressure 164/74 H Pulse Oximetry 93 L 90 L 88 L 12/13/18 06:45 12/13/18 07:00 12/13/18 07:02 Temperature Pulse Rate 97 H 98 H 97 H Respiratory Rate 16 21 18 Blood Pressure 152/68 H Pulse Oximetry 91 L 89 L 87 L 12/13/18 07:15 12/13/18 08:00 12/13/18 11:00 Temperature Pulse Rate 93 H Respiratory Rate 19 15 18 Blood Pressure Pulse Oximetry 89 L 92 L 100 12/13/18 11:18 Temperature Pulse Rate Respiratory Rate Blood Pressure Pulse Oximetry 98 Intake & Output 12/12/18 12/13/18 12/13/18 18:59 06:59 18:59 Intake Total 1017 / 1017 588 / 588 Output Total 1400 / 1400 1450 / 1450 Balance -383 / -383 -862 / -862 Weight 83.6 kg Intake: IV 150 / 150 Levaquin 750 mg Premix Inj 150 150 / 150 ML @ 100 mls/hr IV.SIG Q24H LA Rx#:[id number] Tube Feeding 707 / 707 468 / 468 Tube Irrigant 160 / 160 120 / 120 Output: Urine Amount (Catheter) 1400 / 1400 1450 / 1450 Condom 1400 / 1400 1450 / 1450 Gastric Drainage 0 / 0 0 / 0 Orogastric Tube 0 / 0 0 / 0 Other: Date of Last Bowel Movement 12/12/18 12/13/18 # Bowel Movements 2 1 # Incontinent Bowel Movements 2 1 Result Diagrams: 12/13/18 04:27 12/13/18 04:27 Objective Remarks: GENERAL: Elderly male, lying in bed, intubated, sedated, critically ill HEENT: Normocephalic. Atraumatic. Pupils equal, round, reactive, conjugate. Mucous membranes are moist NECK: Trachea is midline. There is no JVD. CHEST: Equal chest rise. PRVC. fio2 40%. thick secretions. CARDIOVASCULAR: Normal rate, regular rhythm. sinus. ABDOMEN: Soft, nontender, nondistended. No guarding. MUSCULOSKELETAL: Pulses 2+. No peripheral edema. NEUROLOGICAL: RASS -4. withdraws x 4. does not follow commands. Assessment and Plan - Assessment and Plan Plan: Assessment: 73yM with acute left ICA occlusion and new acute CVA complicated by respiratory failure. recurrent respiratory failure likely secondary to CVA, hypopharyngeal dysfunction, dysphagia/dysarthria. Unclear if he will require tracheostomy for further progress. would likely need to have at least a few more days for evolving stroke and edema to improve and then trial additional extubation, and if fails, will need trach to further progress his care. critically ill with recurrent respiratory failure and now aspiration pneumonia by CXR. secretions remain a problem- added levsin yesterday. will continue to work with daily SBTs. Acute CVA acute left ICA occlusion Acute encephalopathy - s/p mechanical thrombectomy 12/07 in IR, successful - frequent neuro checks - PT/OT/ST - ASA - DVT prophylaxis - neurology consult - lipids, a1c - statin - 2d echo: EF 45% - liberalize sbp goals per neurology: normotension. - phenylephrine to keep appropriate cerebral perfusion Acute hypoxic and hypercarbic respiratory failure- recurrent - vent bundle - hob elevated - nebs - aggressive pulmonary toilet - wean fio2 for goal spo2 > 90% - extubated 12/08, reintubated 12/09 for respiratory failure, inability to manage secretions - continue to attempt SBTs. if he fails second trial of extubation, will need tracheostomy Aspiration pneumonia Gram negative rods- sputum - has been inpatient < 72h and at home prior - change to levaquin 750mg iv q24h - f/u sensitivity of staph. hold on vancomycin for now. - sputum culture dispo: is stable to transfer to LTAC for long-term weaning.
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
--- NOTE | 2018-12-13 15:56 | P.DS ---
Date of admission: 12/07/18 08:09 Primary care physician: Sharmaine Gupta MD Attending physician on discharge: Hayden Velazquez Anticipated date of discharge: 12/13/18 Brief History from admission: 73yM last seen normal reports of 1:30am by notes found written by him presented with acute altered mentation and aphasia. initial NIHSS 11 --> 8, but he clinically decompensated and required intubation for a rapidly declining mental status. CT head negative for acute bleed. CTA head/neck demonstrates acute left ICA occlusion. taken emergently for interventional thrombectomy. arrives from embolectomy intubated, sedated. no additional information available from the patient. ROS unobtainable. DS: Diagnosis - Discharge Diagnosis (1) Acute ischemic left MCA stroke Status: Acute (2) Debility Status: Acute (3) Dyspnea Status: Acute (4) Encephalopathy Status: Acute (5) GI bleed Status: Acute (6) Left carotid artery occlusion Status: Acute (7) Leukocytosis Status: Acute (8) Pain Status: Acute (9) Pneumonia Status: Acute (10) Respiratory failure Status: Acute (11) Stroke Status: Acute DS: Summary Hospital Course: Hospital Course: 73yM last seen normal reports of 1:30am by notes found written by him presented with acute altered mentation and aphasia. initial NIHSS 11 --> 8, but he clinically decompensated and required intubation for a rapidly declining mental status. CT head negative for acute bleed. CTA head/neck demonstrates acute left ICA occlusion. taken emergently for interventional thrombectomy. arrives from embolectomy intubated, sedated. no additional information available from the patient. ROS unobtainable. 2: following commands. passing SBT. MRI with left MCA distribution infarct, no hemorrhagic conversion. 214: reintubated overnight for respiratory failure. now has LLL consolidation, likely aspiration related. repeat head CT shows evolving stroke, no new hemorrhage. 215: no changes. awaiting cerebral edema to resolve prior to second attempt at extubation. 216: copious secretions are preventing successful weaning attempts. sputum growing GNRs, speciation to follow. mental status remains the same. 12/12: sputum growing polymicrobial sample, consistent with aspiration. will narrow therapy to Levaquin. still following commands. failing SBT for secretions. long discussion yesterday with sister regarding overall prognosis, current medical plan, and potential future anticipated plan of care. 12/13: no improvements. repeat MRI with small hemorrhagic conversion, no increase in size of infarct. sister requests select LTAC, which at this point is appropriate. - Time Spent with Patient Total time spent providing and/or coordinating discharge services: Greater than 30 minutes - Quality: Stroke Last date observed well: 12/07/18 Last time observed well: 01:30 - Quality: VTE Deep Vein Thrombosis/Pulmonary Embolism Present on Admission: No Exam Vital signs: Vital Signs 12/12/18 16:00 12/12/18 16:02 12/12/18 16:15 Temperature Pulse Rate 95 H 95 H 94 H Respiratory Rate 24 14 25 H Blood Pressure 150/71 H Pulse Oximetry 95 95 95 12/12/18 16:22 12/12/18 16:30 12/12/18 16:45 Temperature 37.2 C Pulse Rate 103 H 93 H 92 H Respiratory Rate 22 23 Blood Pressure Pulse Oximetry 96 94 L 12/12/18 17:00 12/12/18 17:02 12/12/18 17:15 Temperature Pulse Rate 100 H 97 H 97 H Respiratory Rate 24 24 19 Blood Pressure 161/75 H Pulse Oximetry 94 L 94 L 94 L 12/12/18 17:30 12/12/18 17:45 12/12/18 17:48 Temperature Pulse Rate 100 H 104 H Respiratory Rate 24 22 23 Blood Pressure Pulse Oximetry 94 L 94 L 94 L 12/12/18 18:00 12/12/18 18:02 12/12/18 18:12 Temperature Pulse Rate 104 H 104 H 102 H Respiratory Rate 25 H 26 H Blood Pressure 171/82 H Pulse Oximetry 94 L 95 12/12/18 19:30 12/12/18 19:45 12/12/18 20:00 Temperature Pulse Rate 96 H 97 H 96 H Respiratory Rate 20 20 21 Blood Pressure Pulse Oximetry 94 L 94 L 94 L 12/12/18 20:02 12/12/18 20:05 12/12/18 20:15 Temperature Pulse Rate 95 H 97 H 100 H Respiratory Rate 18 22 21 Blood Pressure 170/92 H Pulse Oximetry 95 95 97 12/12/18 20:30 12/12/18 20:45 12/12/18 21:00 Temperature Pulse Rate 99 H 93 H 96 H Respiratory Rate 21 14 19 Blood Pressure Pulse Oximetry 94 L 95 95 02/17/19 21:02 12/12/18 21:15 12/12/18 21:29 Temperature Pulse Rate 97 H 99 H 96 H Respiratory Rate 20 20 14 Blood Pressure 186/88 H 176/81 H Pulse Oximetry 95 94 L 95 12/12/18 21:30 12/12/18 21:45 12/12/18 22:00 Temperature Pulse Rate 97 H 96 H 97 H Respiratory Rate 9 L 19 19 Blood Pressure Pulse Oximetry 95 94 L 94 L 12/12/18 22:02 12/12/18 22:03 12/12/18 22:13 Temperature Pulse Rate 96 H 103 H 110 H Respiratory Rate 14 24 27 H Blood Pressure 182/118 H 186/86 H 219/98 H Pulse Oximetry 94 L 95 94 L 12/12/18 22:15 12/12/18 22:20 12/12/18 22:30 Temperature Pulse Rate 105 H 84 92 H Respiratory Rate 14 17 16 Blood Pressure 204/93 H 159/63 H Pulse Oximetry 97 94 L 94 L 12/12/18 22:45 12/12/18 23:00 12/12/18 23:02 Temperature Pulse Rate 88 91 H 91 H Respiratory Rate 14 14 17 Blood Pressure 142/65 H Pulse Oximetry 94 L 95 94 L 12/12/18 23:15 12/12/18 23:20 12/12/18 23:30 Temperature Pulse Rate 91 H 92 H Respiratory Rate 14 14 14 Blood Pressure Pulse Oximetry 95 95 96 12/12/18 23:45 12/13/18 00:00 12/13/18 00:02 Temperature 37.4 C Pulse Rate 94 H 98 H 98 H Respiratory Rate 19 20 19 Blood Pressure 143/64 H Pulse Oximetry 96 96 94 L 12/13/18 00:15 12/13/18 00:30 12/13/18 00:45 Temperature Pulse Rate 98 H 96 H 96 H Respiratory Rate 20 15 19 Blood Pressure Pulse Oximetry 94 L 94 L 96 12/13/18 01:00 12/13/18 01:02 12/13/18 01:15 Temperature Pulse Rate 96 H 97 H 95 H Respiratory Rate 19 21 15 Blood Pressure 165/69 H Pulse Oximetry 95 93 L 94 L 12/13/18 01:30 12/13/18 01:45 12/13/18 02:00 Temperature Pulse Rate 97 H 96 H 99 H Respiratory Rate 18 15 19 Blood Pressure Pulse Oximetry 95 95 95 12/13/18 02:02 12/13/18 02:15 12/13/18 02:30 Temperature Pulse Rate 98 H 95 H 94 H Respiratory Rate 19 19 21 Blood Pressure 159/70 H Pulse Oximetry 95 95 94 L 12/13/18 02:45 12/13/18 03:00 12/13/18 03:02 Temperature Pulse Rate 94 H 93 H 92 H Respiratory Rate 19 19 18 Blood Pressure 151/82 H Pulse Oximetry 93 L 93 L 93 L 12/13/18 03:15 12/13/18 03:30 12/13/18 03:45 Temperature Pulse Rate 93 H 89 89 Respiratory Rate 20 14 14 Blood Pressure Pulse Oximetry 93 L 94 L 95 12/13/18 03:55 12/13/18 04:00 12/13/18 04:02 Temperature Pulse Rate 94 H 95 H Respiratory Rate 14 35 H 17 Blood Pressure 151/79 H Pulse Oximetry 94 L 96 96 12/13/18 04:15 12/13/18 04:30 12/13/18 04:45 Temperature Pulse Rate 92 H 90 90 Respiratory Rate 22 14 14 Blood Pressure Pulse Oximetry 94 L 92 L 95 12/13/18 05:00 12/13/18 05:02 12/13/18 05:15 Temperature Pulse Rate 96 H 95 H 93 H Respiratory Rate 16 16 18 Blood Pressure 162/72 H Pulse Oximetry 97 98 93 L 12/13/18 05:30 12/13/18 05:45 12/13/18 06:00 Temperature Pulse Rate 94 H 92 H 94 H Respiratory Rate 15 18 19 Blood Pressure Pulse Oximetry 94 L 94 L 92 L 12/13/18 06:02 12/13/18 06:15 12/13/18 06:30 Temperature Pulse Rate 93 H 97 H 98 H Respiratory Rate 19 22 20 Blood Pressure 174/74 H Pulse Oximetry 92 L 93 L 90 L 12/13/18 06:32 12/13/18 06:45 12/13/18 07:00 Temperature Pulse Rate 96 H 97 H 98 H Respiratory Rate 21 16 21 Blood Pressure 164/74 H Pulse Oximetry 88 L 91 L 89 L 12/13/18 07:02 12/13/18 07:15 12/13/18 08:00 Temperature Pulse Rate 97 H 93 H Respiratory Rate 18 19 15 Blood Pressure 152/68 H Pulse Oximetry 87 L 89 L 92 L 12/13/18 11:00 12/13/18 11:18 Temperature Pulse Rate Respiratory Rate 18 Blood Pressure Pulse Oximetry 100 98 Intake & Output 12/12/18 12/13/18 12/13/18 18:59 06:59 18:59 Intake Total 1017 / 1017 588 / 588 250 / 250 Output Total 1400 / 1400 1450 / 1450 Balance -383 / -383 -862 / -862 250 / 250 Weight 83.6 kg Intake: IV 150 / 150 250 / 250 Levaquin 750 mg Premix Inj 150 150 / 150 150 / 150 ML @ 100 mls/hr IV.SIG Q24H LA Rx#:[id number] KCl 20 mEq Premix Inj 20 meq In 100 / 100 100 ml @ 50 mls/hr IV.SIG Q2H PRN Rx#:[id number] Tube Feeding 707 / 707 468 / 468 Tube Irrigant 160 / 160 120 / 120 Output: Urine Amount (Catheter) 1400 / 1400 1450 / 1450 Condom 1400 / 1400 1450 / 1450 Gastric Drainage 0 / 0 0 / 0 Orogastric Tube 0 / 0 0 / 0 Other: Date of Last Bowel Movement 12/12/18 12/13/18 # Bowel Movements 2 1 # Incontinent Bowel Movements 2 1 Results Procedures completed during hospitalization: MRI Labs on day of discharge: Labs from last 24 hours 12/13/18 12/13/18 12/13/18 11:58 05:12 04:27 WBC RBC Hgb Hct MCV MCH MCHC RDW Plt Count MPV Neut % (Auto) Lymph % (Auto) [place] % (Auto) Eos % (Auto) Baso % (Auto) Neut # (Auto) Lymph # (Auto) [place] # (Auto) Eos # (Auto) Baso # (Auto) WBC Differential Differential Comment Sodium 140 Potassium 3.3 L Chloride 103 Carbon Dioxide 28.8 Anion Gap 8 BUN 14 Creatinine 0.77 Estimated GFR Greater than 89 POC Glucose 185 H 169 H Random Glucose 157 H Calcium 8.3 L Phosphorus 2.8 Magnesium 1.9 12/13/18 12/13/18 12/12/18 04:27 01:04 18:20 WBC 13.3 H RBC 4.34 L Hgb 13.1 Hct 39.1 MCV 90.1 MCH 30.1 MCHC 33.4 RDW 14.9 Plt Count 238 MPV 10.0 Neut % (Auto) 67.6 Lymph % (Auto) 15.0 [place] % (Auto) 14.6 H Eos % (Auto) 1.7 Baso % (Auto) 1.1 Neut # (Auto) 9.0 H Lymph # (Auto) 2.0 [place]offat # (Auto) 1.9 H Eos # (Auto) 0.2 Baso # (Auto) 0.2 WBC Differential . Differential Comment Auto diff final Sodium Potassium Chloride Carbon Dioxide Anion Gap BUN Creatinine Estimated GFR POC Glucose 225 H 260 H Random Glucose Calcium Phosphorus Magnesium - Impressions ITS Impressions Cerebral Angiography 12/07/18 00:00 CONCLUSION: 1. Acute occlusion of the left internal carotid artery origin extending to the mid cervical segment with combination of acute thrombus and plaque at the origin. 2. Technically successful suction embolectomy and 6 mm left carotid stent placement, as above. 3. TICI 3 left cerebral flow following carotid stenting. Head CTA 12/07/18 06:37 CONCLUSION: 1. The left ICA is completely clotted from the takeoff in the patient's neck all the way to supraclinoid ICA at the junction of M1 takeoff with diminished flow within left MCA branches. Report was called by [myself to Dr. Hope as well as Dr Burgess at the time of this dictation at 7:15 a.m.]. Neck CTA 12/07/18 06:37 CONCLUSION: 1. Complete occlusion of the left ICA. 2. Atherosclerotic soft plaque with ulceration of right ICA at the takeoff with slight stenosis. Report was called by [myself to Dr. Hope and Dr. Burgess at 17:15 a[address] CT CAD 12/07/18 06:40 CONCLUSION: Physiological brain perfusion parameters with RAPID analysis as above. Findings were discussed with Dr. William at 17:14 a.m. including the results of CT angiography. The decision for consideration of therapy is multi factorial and multi disciplinary relying on subjective and objective clinical data. This data is not construed or intended to be the sole determinant of treatment eligibility. Head CT 12/09/18 09:49 CONCLUSION: 1. Stable appearance to the left MCA infarctions in the anterior sylvian and posterior parieto-occipital regions. 2. No evidence of acute hemorrhage. 3. Stable bilateral maxillary sinus disease. . Chest X-Ray 12/11/18 00:00 CONCLUSION: Cardiomegaly with bibasilar densities.Worsening density in the right lung base when compared to previous study. Head MRI 12/13/18 00:00 CONCLUSION: 1. Evolving infarction in the left hemisphere with very minimal hemorrhagic conversion seen best on the susceptibility weighted imaging. 2. No new areas of infarcts are evident 3. There is no significant increase in mass effect Head MRA 12/13/18 09:19 CONCLUSION: 1. Negative for major branch vessel occlusion. Discharge Plan - Discharge Disposition Patient Disposition: Disch To Another Hospital - Discharge Condition Condition: Critical - Discharge Order Discharge Orders: Discharge Order (Routine); Ordered 12/13/18 Ordered By: Hayden Velazquez - Discharge Details Anticipated Discharge Date: 12/13/18 - Physicians Team Primary Care Provider: Sharmaine Gupta Attending Provider: Hayden Velazquez Other Providers: Daniele Turner MD ; Alex Platt,Agency ; [facility],Agency ; Maycol Gaines MD
[2018-12-13 16:45] VITALS: BP 150/72; TEMP 98.7
--- NOTE | 2018-12-13 18:04 | MG ---
cc: Fransico Coburn MD, PhD TEST NUMBER: [id number] TECHNIQUE: A 17-channel EEG. DESCRIPTION: The background rhythm shows initially an alpha rhythm of roughly 8 Hz. Following this, there is some slowing in the theta range at about 6 Hz, amplitude roughly 20-30 microvolts. No lateralizing features are seen. No epileptiform discharges are present. Photic results in a fairly symmetrical driving response. INTERPRETATION: Mildly abnormal study with mild slowing in the theta range at times, suggesting either mild encephalopathy or lethargy through much of the tracing; however, there is a normal alpha rhythm. Fransico Coburn MD, PhD TED/rae , 05:18 PM , 05:22 PM
[2018-12-13 18:19] VITALS: PULSE 83; RESP 17
[2018-12-13 19:39] VITALS: O2SAT 97
== END 2018-12-13 19:23 | disposition short-term general hospital (02) | DRG 23 ==
LOC: NEPE 06:33 → N03 07:44 → NEDA 08:09 → N03 09:43
PROVIDERS: ADMIT Internal Medicine Critical Care Medicine; ATTEND Internal Medicine Critical Care Medicine
CPT/HCPCS: 0042T; 31500; 36600; 37215; 61645; 70450; 70496; 70498; 70544; 70551; 71010; 71045; 76497; 76499; 76937; 80048; 80061; 80307; 81001; 82550; 82805; 82948; 82962; 83036; 83735; 84100; 84484; 85025; 85384; 85610; 85730; 86403; 86850; 86900; 86901; 87040; 87070; 87077; 87086; 87147; 87186; 87205; 87641; 90774; 90784; 93005; 93306; 94002; 94003; 94640; 94656; 94657; 94664; 94665; 95819; 96374; 97110; 97162; 97167; 97530; 99291; A4646; C1725; C1760; C1769; C1876; C1884; C1887; C1893; C1894; C8952; C9113; J0295; J0330; J0360; J1644; J1940; J1956; J2370; J2704; J3010; J3480; J7030; J7040; J7050; Q9949; Q9967